=== PATIENT | female | born 1940 | race Caucasian/White ===

== ENCOUNTER 2019-02-01 21:06 | Inpatient (IN) ==
[2019-02-01] MEDS ORDERED: Naloxone 0.4 MG/ML INJ IVP PRN (23:42)
[2019-02-02] MEDS: Ipratropium/Albuterol Neb 3 ML IH SCH ×5 (00:20→22:00)
[2019-02-02] MEDS: *HR* Heparin 5,000 UNIT/ML VIAL SQ SCH ×2 (00:35→08:16)
[2019-02-02] MEDS: hydrALAZINE 25 MG TABLET PO SCH ×3 (01:14→12:05)
[2019-02-02] MEDS ORDERED: Melatonin 3 MG TABLET PO PRN (01:30)
[2019-02-02] MEDS ORDERED: Furosemide 20 MG/2 ML VIAL IVP ONE (01:49)
--- NOTE | 2019-02-02 02:02 | Internal Med History&Physical ---
Date of Encounter: 02/02/19 Time of Encounter: 01:51 Internal Medicine - H&P: HPI Chief complaint: Shortness of breath/Chest Pain/Presyncope History of present illness: Ms. Ann is a 78 year old female with a past medical history of remote CVA, hypertension, hyperlipidemia, COPD on 2 L home oxygen who initially presented to [facility] due to shortness of breath, chest pain and near syncope. Patient was walking into her living room shortly after coming from the bathroom when she felt like she was going to pass out. Patient sat down immediately. Denies loss of consciousness but did report palpitations and a sensation that her heart was racing. She began to notice retrosternal chest pressure that was nonradiating and felt more lightheaded and weak at the time. She subsequently called EMS. Per EMS, patient was found to be in A. fib with RVR with a heart rate in the 130s. Patient has no prior history of atrial fibrillation. However upon arrival to [place] patient was in sinus rhythm. EKG and troponin were unremarkable. Electrolytes within normal limits. Patient follows with Dr. Schwab with cardiology at [place]. Chest x-ray showed bibasilar alveolar opacities and small bilateral pleural effusions. BNP 190. Labs are otherwise unremarkable. Patient received Solu-Medrol and Levaquin. Patient currently asymptomatic. She does endorse a little bit of shortness of breath and has noted that lying flat seems to make it worse. Patient also endorses wheezing earlier today. Currently denies any chest pain. Denies any fever, chills, productive cough, nausea, vomiting or diarrhea. Appears to be back in sinus rhythm. We will admit for COPD exacerbation and evaluation of near syncope. Past Med Surg Social Fam HX - Past Medical History Medical history: COPD, CVA, hyperlipidemia, renal disease, thyroid disease Psychiatric history: no psych history - Social History Smoking Status: Former smoker Smokeless Tobacco Status: No Alcohol use: none Drug use: none Internal Medicine - H&P: Meds Atorvastatin [Lipitor] 40 mg PO DAILY 02/02/19 [History] Clopidogrel Bisulfate [Plavix] 75 mg PO DAILY 02/02/19 [History] Doxepin HCl [Silenor] 6 mg PO DAILY 02/02/19 [History] Folic Acid 1 mg PO DAILY 02/02/19 [History] Gabapentin [Neurontin] 600 mg PO TID 02/02/19 [History] Levothyroxine [Synthroid] 150 mcg PO DAILY 02/02/19 [History] Metoprolol Tartrate 50 mg PO BID 02/02/19 [History] Omeprazole 40 mg 02/02/19 [History] Potassium Chloride [K-Tab ER] 20 meq PO DAILY 02/02/19 [History] Ranitidine HCl [Heartburn Relief] 150 mg PO BID 02/02/19 [History] Sertraline [Zoloft] 50 mg PO DAILY 02/02/19 [History] Vitamin B-6 50 mg PO DAILY 02/02/19 [History] hydrALAZINE [HydrALAZINE] 50 mg PO QID 02/02/19 [History] Allergy/AdvReac Type Severity Reaction Status Date / Time cefdinir [From Omnicef] Allergy Anxiety Verified 02/01/19 23:58 All Systems PM: A 10-system review of systems was performed and is negative for pertinent f indings except as documented above in the HPI. - Constitutional Constitutional: no chills, no fever(s), no night sweats - EENT Eyes: no change in vision, no discharge, no pain, no photophobia Ears: no ear discharge, no ear pain, no tinnitus Nose, mouth and throat: no dysphagia, no nasal discharge, no neck pain, no sore throat - Cardiovascular Cardiovascular ROS IM: no chest pain, no diaphoresis, no dyspnea, no lightheadedness, no palpitations, no syncope - Respiratory Respiratory: no cough, no dyspnea, no wheezing, no excessive phlegm production - Gastrointestinal Gastrointestinal: no abdominal pain, no diarrhea, no hematemesis, no hematochezia, no melena, no nausea, no vomiting - Genitourinary Genitourinary: no change in urinary stream, no dysuria, no flank pain, no hematuria - Musculoskeletal Musculoskeletal ROS IM: no numbness, no tingling - Integumentary Integumentary IM: no rash, no unusual bruising - Neurological Neurological ROS: no confusion, no convulsions, no focal weakness, no numbness, no tingling, no tremor(s) - Hematologic/Lymphatic Hematologic/Lymphatic: no easy bruising - Constitutional Vitals: Temp Pulse Resp BP Pulse Ox 98.5 F 91 15 181/87 98 02/02/19 00:36 02/02/19 00:36 02/02/19 00:36 02/02/19 00:36 02/02/19 00:36 Exam: General: Alert and oriented 3 Skin:Normal color, no rash, no lesions. HEENT:EOM, pupils equal, round and reactive. Cardiovascular:Normal S1 & S2, no rubs, murmurs or gallops. No JVD. Pulse regular. Lungs:Normal breath sounds, no wheezes or crackles. Abdomen:Soft, non-tender, no rigidity. Extremities:No deformity, no edema or tenderness, no joint swelling or clubbing. Neurological:Normal cognition and motor skills. Pulses:Carotid and radial pulses normal +2. Rest of the physical exam is non contributory Internal Med - H&P Results - Labs CBC & Chem 7: 02/02/19 03:21 02/02/19 03:21 - Assessment and Plan (1) Atrial fibrillation with RVR Current Visit: Yes Status: Acute Assessment and plan: Patient reportedly found to be in A. fib with RVR per initial assessment by EMS. Patient has no prior history of atrial fibrillation. Found to be in sinus rhythm upon arrival to [facility]. EKG obtained there which I reviewed shows normal sinus rhythm with a heart rate of 89 in the absence of any ST or T-wave changes concerning for ischemia. Patient currently appears to be in sinus tachycardia with a heart rate in the 1 teens to 120. Etiology of patient's atrial fibrillation unclear. Given reports of clear lung sounds upon arrival to [place] and similar findings here, we will obtain a CTA of the chest to assess for PE and better evaluate abnormal findings on chest x-ray. -Telemetry -Patient has a Chads Vasc score of 7 but no prior history of A. fib and is currently in sinus rhythm. We will hold off anticoagulation for now, patient received loading dose of aspirin prior to transfer. -Echocardiogram -Consider Consult to cardiology (2) Near syncope Current Visit: Yes Status: Acute Assessment and plan: Patient reports near syncope symptoms characterized by lightheadedness associated with palpitations and chest pain. Suspect likely secondary to findings of atrial fibrillation reported per EMS. -Continue telemetry -We will trend troponin -Obtain echocardiogram in the morning (3) COPD exacerbation Current Visit: Yes Status: Acute Assessment and plan: Patient with reported history of COPD currently on 2 L nasal cannula presenting with dyspnea. Patient denies any significant smoking history. Patient did endorse wheezing at home prior to calling [facility]. However no wheezing has been noted at [place] or here. Patient did receive Solu-Medrol prior to transfer but no breathing treatments. -We will start patient on duo nebs -Continue steroids -We will start patient on azithromycin in the morning (4) Dyspnea Current Visit: Yes Status: Acute Assessment and plan: Patient with reported past medical history of COPD currently on chronic home oxygen of 2 L presenting with subjective dyspnea with reported wheezing. She endorses worsening of her shortness of breath lying flat. Was found to be in atrial fibrillation with RVR. Chest x-ray performed at [place] showed no acute disease except for bibasilar patchy alveolar densities and tiny bilateral pleural effusions which appear to be improved from previous x-ray on 01/01/2019. Findings could be due to resolving congestive heart failure or resolving pneumonia. Currently patient saturating in the mid 90s on home dose of 2 L. Lung examination was benign. Patient did have a mildly elevated BNP of 261. At this time etiology of patient's dyspnea may be secondary to A. fib versus COPD exacerbation versus underlying CHF or a combination thereof. Patient still has some mild sinus tachycardia. -Continue oxygen support -We will start treatment for possible COPD exacerbation -We will obtain echocardiogram given chest x-ray findings and reports of orthopnea and elevated BNP -Will consider CTA for further evaluation of abnormal findings on chest x-ray and rule out PE given patient's persistent sinus tachycardia and new onset A. fib. We will await CMP to assess kidney function prior to ordering CTA. Qualifiers: Dyspnea type: unspecified Qualified Code(s): R06.00 - Dyspnea, unspecified (5) Hypertension Current Visit: Yes Status: Acute Assessment and plan: Blood pressure remains elevated. Patient states she is on hydralazine 4 times a day. We will give evening dose and monitor. Qualifiers: Hypertension type: essential hypertension Qualified Code(s): I10 - Essential (primary) hypertension (6) DVT prophylaxis Current Visit: Yes Status: Acute Assessment and plan: Subcutaneous heparin - Time Spent With Patient Total time spent is greater than 50% in coordination of care (as documented) at patient's floor/unit and/or counseling patient:
[2019-02-02 03:34] LABS: Basophils % 0.3 %; Hematocrit 30.8 % (35.3-44.9); Hemoglobin 9.5 g/dL (11.5-15.4); Immature Granulocytes % 0.6 % (0-4); Lymphocytes # 0.3 K/mcL (0.6-4.6); Lymphocytes % 3.6 %; Mean Corpuscular HGB Conc 30.8 g/dL (31.6-35.5); Mean Corpuscular Hemoglobin 26.5 pg (28.0-33.3); Mean Corpuscular Volume 85.8 fL (83.0-100.0); Mean Platelet Volume 10.8 fL (9.4-12.4); Monocytes # 0.1 K/mcL (0.0-1.3); Monocytes % 0.7 %; Neutrophils # 6.9 K/mcL (1.6-8.9); Platelet Count 209 K/mcL (140-400); Red Blood Count 3.59 M/mcL (3.82-4.97); Red Cell Distribution Width 21.2 % (11.5-14.5); Segmented Neutrophils % 94.8 %; White Blood Count 7.2 K/mcL (4.3-11.1)
[2019-02-02 03:47] LABS: INR 1.2; Prothrombin Time 13.2 Seconds (9.4-12.1)
[2019-02-02 03:49] LABS: Activated Partial Thrombo Time 29.7 Seconds (26.0-36.0)
[2019-02-02 03:52] LABS: Albumin 3.7 g/dL (3.5-5.7); Albumin/Globulin Ratio 1.5 (1.1-2.2); Bilirubin,Total 0.8 mg/dL (0.3-1.0); Calcium 8.9 mg/dL (8.6-10.3); Globulin 2.4 g/dL (2.4-3.5); Magnesium 1.9 mg/dL (1.6-2.6); Potassium 3.5 mEq/L (3.5-5.1); Total Protein 6.1 g/dL (6.4-8.9)
[2019-02-02] MEDS ORDERED: MethylPREDNISolone 40 MG/ML VIAL IVP SCH (04:00)
[2019-02-02] MEDS ORDERED: Isovue-370 500 ML BOTTLE IVP ONE (04:03)
[2019-02-02] MEDS: Pyridoxine (B-6) 50 MG TABLET PO SCH (08:16)
[2019-02-02] MEDS: Folic Acid 1 MG TABLET PO SCH (08:16)
[2019-02-02] MEDS: Azithromycin 500 MG in 0.9 % Sodium Chloride 250 ML IVPB SCH (08:17)
[2019-02-02] MEDS: Gabapentin 300 MG CAPSULE PO SCH ×3 (08:17→21:13)
[2019-02-02] MEDS: MethylPREDNISolone 40 MG/ML VIAL IVP SCH ×2 (08:49→20:20)
[2019-02-02] MEDS ORDERED: Acetaminophen 325 MG TABLET PO ONE (08:55)
[2019-02-02] MEDS ORDERED: Famotidine 20 MG TABLET PO SCH (09:00)
[2019-02-02] MEDS ORDERED: Nitroglycerin 0.4 MG TAB.SUBL SL PRN (10:10)
--- NOTE | 2019-02-02 11:37 | Event Note ---
Date of Encounter: 02/02/19 Time of Encounter: 08:30 H&P reviewed. 78-year-old female with history of COPD on 2L, hypertension, CVA, was admitted overnight due to near syncopal episode. There was a question about afb with RVR on presentation by EMS but the evidence so far only has sinus tachycardia. CT showed evidence of volume overload without any pneumonia. Was noted to be wheezing on exam and is was started on treatment with macrolide, steroid, and bronchodilators. Currently in sinus tachycardia with serial troponins -ve, will obtain echocardiogram. Later on, there was a mention from the RN regarding ?PV bleed, will order US pelvis and trend H&H.
[2019-02-02] MEDS ORDERED: 0.9 % Sodium Chloride 500 ML IV ONE (12:48)
[2019-02-02] MEDS ORDERED: 0.9 % Sodium Chloride 500 ML ONE (12:51)
[2019-02-02] MEDS ORDERED: Pantoprazole 40 MG VIAL IVP SCH ×2 (13:28→21:30)
[2019-02-02] MEDS ORDERED: 0.9 % Sodium Chloride 500 ML IVC PRN (13:29)
--- NOTE | 2019-02-02 14:07 | Electrocardiograph Report ---
[place] [id number] Test Date: 2019-02-02 Pat Name: Morales Ann Department: 111 Room: 2N3 Gender: F Anvilsmith: : 1940 Requested By: Jacqui Rebollar Order Number: [id number] Reading MD: Milad Frances Measurements Intervals [place] Rate: 108 P: 91 AK: 137 QRS: 23 QRSD: 66 T: 52 QT: 360 QTc: 423 Interpretive Statements SINUS TACHYCARDIA NONSPECIFIC ST & T-WAVE ABNORMALITY Electronically Signed On 02-02-2019 14:06:20 EDT by Milad Frances
--- NOTE | 2019-02-02 14:10 | Electrocardiograph Report ---
[place] [id number] Test Date: 2019-02-02 Pat Name: Morales Ann Department: 111 Room: 2N3 Gender: F Director News: : 1940 Requested By: Obie Kunz Order Number: [id number] Reading MD: Milad Frances Measurements Intervals [place] Rate: 99 P: 80 OK: 149 QRS: 30 QRSD: 71 T: 52 QT: 389 QTc: 445 Interpretive Statements SINUS RHYTHM NONSPECIFIC ST & T-WAVE ABNORMALITY Electronically Signed On 02-02-2019 14:09:12 EDT by Milad Frances
[2019-02-02 14:13] LABS: Hematocrit 28.4 % (35.3-44.9); Hemoglobin 8.5 g/dL (11.5-15.4)
[2019-02-02] MEDS: Famotidine 20 MG TABLET PO SCH (21:13)
[2019-02-02 22:47] LABS: Hematocrit 25.2 % (35.3-44.9); Hemoglobin 7.6 g/dL (11.5-15.4)
[2019-02-03] MEDS: Ipratropium/Albuterol Neb 3 ML IH SCH ×4 (04:35→22:01)
[2019-02-03 04:56] LABS: Hematocrit 22.5 % (35.3-44.9); Hemoglobin 6.8 g/dL (11.5-15.4); Immature Granulocytes % 0.4 % (0-4); Lymphocytes # 0.5 K/mcL (0.6-4.6); Mean Corpuscular HGB Conc 30.2 g/dL (31.6-35.5); Mean Corpuscular Volume 89.3 fL (83.0-100.0); Mean Platelet Volume 10.6 fL (9.4-12.4); Monocytes # 0.7 K/mcL (0.0-1.3); Neutrophils # 12.1 K/mcL (1.6-8.9); Platelet Count 207 K/mcL (140-400); Red Blood Count 2.52 M/mcL (3.82-4.97); Red Cell Distribution Width 21.2 % (11.5-14.5); Segmented Neutrophils % 90.6 %
[2019-02-03 04:57] LABS: White Blood Count 13.4 K/mcL (4.3-11.1)
[2019-02-03] MEDS: MethylPREDNISolone 40 MG/ML VIAL IVP SCH ×2 (05:14→20:05)
[2019-02-03] MEDS: Pantoprazole 40 MG VIAL IVP SCH ×2 (05:14→20:05)
[2019-02-03 05:19] LABS: % Iron Saturation 3 % (15-50); Iron 10 mcg/dL (50-170); Transferrin 239 mg/dL (203-362)
[2019-02-03 05:23] LABS: Calcium 8.5 mg/dL (8.6-10.3); Magnesium 2.1 mg/dL (1.6-2.6)
[2019-02-03] MEDS: Gabapentin 300 MG CAPSULE PO SCH ×3 (08:48→21:09)
[2019-02-03] MEDS: Pyridoxine (B-6) 50 MG TABLET PO SCH (08:48)
[2019-02-03] MEDS: Azithromycin 500 MG in 0.9 % Sodium Chloride 250 ML IVPB SCH (08:48)
[2019-02-03] MEDS: Folic Acid 1 MG TABLET PO SCH (08:48)
--- NOTE | 2019-02-03 09:11 | Internal Med Progress Note ---
Hospitalist Progress Note - Encounter Date of Encounter: 02/03/19 Time of Encounter: 08:00 - Subjective Interval History: Overnight event noted. Patient had a drop of hemoglobin to 6.8 this morning and was started on PRBC transfusion. There was also a report of passing blood clot from her vagina yesterday afternoon. At the time of my exam, I noticed that her diaper had what appeared to be melanotic stool. Otherwise, patient reports improvement in her shortness of breath and denies worsening cough or sputum production. No fever overnight. - Exam Vitals: Temp Pulse Resp BP Pulse Ox 98 F 79 16 155/68 100 02/03/19 09:06 02/03/19 09:06 02/03/19 09:06 02/03/19 09:06 02/03/19 09:06 Exam: General: Alert and oriented, not in acute distress. Cardiovascular:Normal S1 & S2, No JVD. Pulse regular. Lungs: Minimal wheezes Abdomen:Soft, non-tender, no rigidity. Extremities:No deformity or swelling Neurological:Normal cognition and motor skills. Non-focal - Assessment and Plan (1) Anemia Current Visit: Yes Status: Acute Assessment and Plan: Patient presented with dyspnea on exertion and near syncope which was initially attributed it to mild COPD exacerbation +/- fluid overload however, her Hb in 04/2018 was 13.7. IT was 9.5 on presentation and there was a mention of passing blood clot through her vagina vs. melanotic stool Hb subsequently dropped to 6.8, for 2U pRBC transfusion workup shows iron deficiency and US pelvis demonstrating hypoechoic structure associated with the lower uterine segment posteriorly Plavix on hold Start iron supplement, continue IV PPI. GI consulted yesterday will also obtain CT Pelvis and consider gynecology consultation if GI workup is unremarkable (2) COPD exacerbation Current Visit: Yes Status: Acute Assessment and Plan: Will complete a short course of steroids. Continue scheduled bronchodilators (3) Near syncope Current Visit: Yes Status: Acute Assessment and Plan: likely due to orthostasis from acute blood loss anemia mx as above (4) Hypertension Current Visit: Yes Status: Chronic Assessment and Plan: Meds were held in view of borderline BP in the setting of anemia remains hypertensive through the night, will resume bb first (5) CKD (chronic kidney disease) stage 3, GFR 30-59 ml/min Current Visit: Yes Status: Chronic Assessment and Plan: Creatinine at her baseline, avoid nephrotoxins (6) History of CVA (cerebrovascular accident) Current Visit: Yes Status: Chronic Assessment and Plan: Plavix on hold, continue statin (7) DVT prophylaxis Current Visit: Yes Status: Acute Assessment and Plan: EPCD - Time Spent with Patient Total time spent is greater than 50% in coordination of care (as documented) at patient's floor/unit and/or counseling patient: Greater than 35 minutes Plan of Care Discussed with: patient Internal Medicine: Result - Labs CBC & Chem 7: 02/03/19 04:20 02/03/19 04:20 Labs: Short CBC 02/02/19 02/02/19 02/03/19 Range/Units 13:51 22:33 04:20 WBC 13.4 H D (4.3-11.1) K/mcL Hgb 8.5 L 7.6 L 6.8 L (11.5-15.4) g/dL Hct 28.4 L 25.2 L 22.5 L (35.3-44.9) % Plt Count 207 (140-400) K/mcL Neutrophils # 12.1 H (1.6-8.9) K/mcL BMP 02/03/19 04:20 Sodium 137 Potassium 4.0 Chloride 106 Carbon Dioxide 22 L BUN 28 H Creatinine 1.31 H Glucose 176 H Calcium 8.5 L Cardiac Enzymes 02/02/19 02/02/19 Range/Units 09:27 13:51 Troponin I < 0.03 < 0.03 (< 0.04) ng/mL - ABG Interpretation ABG results: PT/INR, D-dimer PT 13.2 Seconds (9.4-12.1) H 02/02/19 03:21 D-Dimer 506 ng/mLFEU (0-500) H 02/02/19 03:21 - Impressions Impressions Echocardiogram 02/02/19 01:49 Impressions: LVEF 60-65%. Mild concentric left ventricular hypertrophy. Severe left ventricular diastolic dysfunction. Normal right ventricular structure and function. Severely dilated left atrium. Mild aortic regurgitation. Moderate mitral regurgitation. Mild mitral stenosis. Mild-moderate tricuspid regurgitation. Severe pulmonary hypertension. Left Ventricular Wall Motion: Rest Echo Findings All wall segments showed normal motion. Findings: Study Quality * Technically adequate exam. ECG Findings * Normal sinus rhythm. Left Ventricle * LVEF 60-65%. * Normal LV chamber size and systolic function. * Mild concentric left ventricular hypertrophy. * Severe left ventricular diastolic dysfunction. Right Ventricle * Normal right ventricular structure and function. Left Atrium * Severely dilated left atrium. Right Atrium * Normal right atrial size. Interatrial Septum * Interatrial septum not well evaluated. Aortic Valve * Moderately calcified aortic valve leaflets. * No aortic stenosis. * Mild aortic regurgitation. Mitral Valve * Moderately calcified mitral valve leaflets. * Moderate mitral annular calcification * Moderate mitral regurgitation. * Mild mitral stenosis. * Mean transmitral gradient is 7 mmHg at HR 84 bpm. Tricuspid Valve * Normal tricuspid valve structure. * No tricuspid stenosis. * Mild-moderate tricuspid regurgitation. * Estimated RVSP is 63 mmHg. * Estimated RA pressure is 3 mmHg. * Severe pulmonary hypertension. Pulmonic Valve * Pulmonic valve is not well visualized. * No pulmonic stenosis. * Trace pulmonic regurgitation. Aorta * Normally sized aortic root. Pericardium * The pericardium appears normal. IVC * The IVC is not dilated. * > 50% respiratory change Chest CT 02/02/19 04:40 IMPRESSION: Bilateral pleural effusions with associated atelectasis. An element of volume overload is suspected given the presence of smooth interlobular septal thickening. Heterogeneous thyroid. Consider nonemergent thyroid ultrasound for complete characterization. D/ / 02/02/2019 08:08:13 Keo Klein / migdalia Interpreting Provider: Keo Klein Pelvis Ultrasound 02/03/19 00:00 IMPRESSION: Hypoechoic to anechoic structure associated with the lower uterine segment posteriorly measures 2.4 x 2.2 x 1.6 cm. Neoplasm is not excluded. Correlation with physical exam and additional cross-sectional imaging such as CT or MRI is advised. No dominant adnexal mass. D/ / 02/03/2019 07:37:30 Keo Klein / rosalind Interpreting Provider: Keo Klein Consult Discharge Plan - Plan Referrals: Paula Enciso, [employer] [Primary Care Provider] - (1) Anemia Qualifiers: Anemia type: iron deficiency Iron deficiency anemia type: chronic blood loss Qualified Code(s): D50.0 - Iron deficiency anemia secondary to blood loss (chronic) (4) Hypertension Qualifiers: Hypertension type: essential hypertension Qualified Code(s): I10 - Essential (primary) hypertension
[2019-02-03] MEDS ORDERED: 0.9 % Sodium Chloride 250 ML ONE (10:07)
[2019-02-03] MEDS: Sodium Ferric Gluconat/Sucrose 125 MG in 0.9 % Sodium Chloride 100 ML IVPB SCH (10:35)
--- NOTE | 2019-02-03 10:56 | Gastroenterology Consult Note ---
<Raul Cruz - Last Filed: 02/03/19 10:54> Date of Encounter: 02/03/19 Time of Encounter: 10:15 - Assessment and plan (1) Anemia Current Visit: Yes Status: Acute Assessment and plan: Hgb 13.7 on 04/20/2018. On admission Hgb 9.5 and this AM Hgb 6.8 with MCV 89.3 and iron 10. Two units PRBC ordered this AM. Continue to monitor CBC and transfuse PRBC as needed. Continue to hold Plavix. Plan for EGD and colonoscopy tomorrow. Clear liquid diet today, no red or purple. NPO at midnight. If unable tolerate NuLytely please use MiraLAX prep. If not clear by 6 AM, give 2 tap water enemas. Qualifiers: Anemia type: iron deficiency Iron deficiency anemia type: chronic blood loss Qualified Code(s): D50.0 - Iron deficiency anemia secondary to blood loss (chronic) (2) History of CVA (cerebrovascular accident) Current Visit: Yes Status: Chronic Assessment and plan: Continue to hold Plavix. - Time Spent With Patient Total time spent is greater than 50% in coordination of care (as documented) at patient's floor/unit and/or counseling patient: GI History of Present Illness - Data of Consult Patient: new to practice Consult date: 02/03/19 Requesting Physician: Obie Kunz MD - Consult Narrative Reason for consult: Anemia History of present illness: Ms. Ann is a 78 year old female with PMHx of COPD, CVA, HLD, HTN who presented with shortness of breath, chest pain, and near syncope. She denies loss of consciousness. She was found to be in Afib with RVR by EMS and returned to sinus rhythm upon arrival to [facility]. We were consulted to evaluate her anemia. Hgb 13.7 on 04/20/2018, on admission Hgb 9.5, and this AM Hgb dropped to 6.8. The RN reported the patient passing blood clots from her vagina yesterday, and the hospitalist reported seeing what appeared to be melanotic stool. The patient states she has been having dark, tarry stools for the past 3 days. She denies any hematochezia. She denies fever, chills, abdominal pain, nausea, vomiting, diarrhea, constipation, hematemesis, or hematochezia. Procedures: No record NSAIDs: None Anticoagulation: Plavix Past Med Surg Social Fam HX - Past Medical History Medical history: COPD, CVA, hyperlipidemia, renal disease, thyroid disease Psychiatric history: no psych history - Social History Smoking Status: Former smoker Smokeless Tobacco Status: No Alcohol use: none Drug use: none - Gastrointestinal Gastrointestinal: Present: as per HPI - Constitutional Constitutional: as per HPI - EENT Eyes: as per HPI Ears: Present: as per HPI Nose, mouth and throat: Present: as per HPI - Cardiovascular Cardiovascular ROS: Present: as per HPI - Respiratory Respiratory IM: Present: as per HPI - Genitourinary Genitourinary: Absent: change in color, Urinary frequency - Neurological ROS Neurological GI: Present: as per HPI - Hematologic/Lymphatic Hematologic/Lymphatic pediatric: Present: as per HPI - Musculoskeletal Musculoskeletal ROS GI: Present: as per HPI - Integumentary Integumentary GI: Present: as per HPI - Psychiatric ROS Psychiatric GI: Present: as per HPI - Endocrine Endocrine IM: Present: as per HPI - Constitutional Vitals: Temp Pulse Resp BP Pulse Ox 98.2 F 84 16 128/67 100 02/03/19 10:52 02/03/19 10:52 02/03/19 10:52 02/03/19 10:52 02/03/19 10:52 General appearance: Present: cooperative, A&O X 3, no acute distress, answers questions appropriately - Head Head exam: Present: atraumatic, normocephalic - Eye Eye exam: Present: normal appearance, sclera anicteric - ENT ENT exam: Present: mucous membranes dry - Neck Neck exam general surgery: Present: normal inspection, trachea midline - Respiratory Respiratory exam: Present: CTAB. Absent: rales, rhonchi, wheezes - Cardiovascular Cardiovascular exam: Present: RRR, +S1, +S2 - GI/Abdominal GI/Abdominal exam: Present: soft, no peritoneal signs. Absent: distended, firm, guarding, tenderness - Rectal Rectal exam: Present: deferred - Extremities Exam Extremities exam: Present: warm - Neurological Exam Neurological exam: Present: no focal deficits - Psychiatric Psychiatric exam: Present: normal affect, normal mood - Skin Skin exam: Present: dry, intact, normal color, warm Results - Labs CBC & Chem 7: 02/03/19 04:20 02/03/19 04:20 Labs: Last Result 02/03/19 02/03/19 04:20 04:20 Calcium 8.5 L Iron 10 L % Saturation 3 L Transferrin 239 Entire Visit 02/03/19 04:20 Hgb 6.8 L Hct 22.5 L - ABG ABG results: PT/INR, D-dimer PT 13.2 Seconds (9.4-12.1) H 02/02/19 03:21 D-Dimer 506 ng/mLFEU (0-500) H 02/02/19 03:21 - Impressions Impressions Echocardiogram 02/02/19 01:49 Impressions: LVEF 60-65%. Mild concentric left ventricular hypertrophy. Severe left ventricular diastolic dysfunction. Normal right ventricular structure and function. Severely dilated left atrium. Mild aortic regurgitation. Moderate mitral regurgitation. Mild mitral stenosis. Mild-moderate tricuspid regurgitation. Severe pulmonary hypertension. Left Ventricular Wall Motion: Rest Echo Findings All wall segments showed normal motion. Findings: Study Quality * Technically adequate exam. ECG Findings * Normal sinus rhythm. Left Ventricle * LVEF 60-65%. * Normal LV chamber size and systolic function. * Mild concentric left ventricular hypertrophy. * Severe left ventricular diastolic dysfunction. Right Ventricle * Normal right ventricular structure and function. Left Atrium * Severely dilated left atrium. Right Atrium * Normal right atrial size. Interatrial Septum * Interatrial septum not well evaluated. Aortic Valve * Moderately calcified aortic valve leaflets. * No aortic stenosis. * Mild aortic regurgitation. Mitral Valve * Moderately calcified mitral valve leaflets. * Moderate mitral annular calcification * Moderate mitral regurgitation. * Mild mitral stenosis. * Mean transmitral gradient is 7 mmHg at HR 84 bpm. Tricuspid Valve * Normal tricuspid valve structure. * No tricuspid stenosis. * Mild-moderate tricuspid regurgitation. * Estimated RVSP is 63 mmHg. * Estimated RA pressure is 3 mmHg. * Severe pulmonary hypertension. Pulmonic Valve * Pulmonic valve is not well visualized. * No pulmonic stenosis. * Trace pulmonic regurgitation. Aorta * Normally sized aortic root. Pericardium * The pericardium appears normal. IVC * The IVC is not dilated. * > 50% respiratory change Chest CT 02/02/19 04:40 IMPRESSION: Bilateral pleural effusions with associated atelectasis. An element of volume overload is suspected given the presence of smooth interlobular septal thickening. Heterogeneous thyroid. Consider nonemergent thyroid ultrasound for complete characterization. D/ / 02/02/2019 08:08:13 Keo Klein / migdalia Interpreting Provider: Keo Klein Pelvis Ultrasound 02/03/19 00:00 IMPRESSION: Hypoechoic to anechoic structure associated with the lower uterine segment posteriorly measures 2.4 x 2.2 x 1.6 cm. Neoplasm is not excluded. Correlation with physical exam and additional cross-sectional imaging such as CT or MRI is advised. No dominant adnexal mass. D/ / 02/03/2019 07:37:30 Keo Klein / rosalind Interpreting Provider: Keo Klein Consult Discharge Plan - Plan Referrals: Paula Enciso SENIOR COMPLIANCE ANALYST [Primary Care Provider] - <Levar Lucia - Last Filed: 02/03/19 16:43> Date of Encounter: 02/03/19 Time of Encounter: 15:00 - Time Spent With Patient Total time spent is greater than 50% in coordination of care (as documented) at patient's floor/unit and/or counseling patient: GI History of Present Illness - Data of Consult Requesting Physician: Obie Kunz MD - Consult Narrative History of present illness: Ms. Ann is a 78 year old female - Constitutional Vitals: Temp Pulse Resp BP Pulse Ox 98.7 F 76 14 146/72 98 02/03/19 15:41 02/03/19 15:41 02/03/19 16:30 02/03/19 15:41 02/03/19 16:30 Results - Labs CBC & Chem 7: 02/03/19 04:20 02/03/19 04:20 Labs: Last Result 02/03/19 02/03/19 04:20 04:20 Calcium 8.5 L Iron 10 L % Saturation 3 L Transferrin 239 Entire Visit 02/03/19 04:20 Hgb 6.8 L Hct 22.5 L - ABG ABG results: PT/INR, D-dimer PT 13.2 Seconds (9.4-12.1) H 02/02/19 03:21 D-Dimer 506 ng/mLFEU (0-500) H 02/02/19 03:21 - Impressions Impressions Echocardiogram 02/02/19 01:49 Impressions: LVEF 60-65%. Mild concentric left ventricular hypertrophy. Severe left ventricular diastolic dysfunction. Normal right ventricular structure and function. Severely dilated left atrium. Mild aortic regurgitation. Moderate mitral regurgitation. Mild mitral stenosis. Mild-moderate tricuspid regurgitation. Severe pulmonary hypertension. Left Ventricular Wall Motion: Rest Echo Findings All wall segments showed normal motion. Findings: Study Quality * Technically adequate exam. ECG Findings * Normal sinus rhythm. Left Ventricle * LVEF 60-65%. * Normal LV chamber size and systolic function. * Mild concentric left ventricular hypertrophy. * Severe left ventricular diastolic dysfunction. Right Ventricle * Normal right ventricular structure and function. Left Atrium * Severely dilated left atrium. Right Atrium * Normal right atrial size. Interatrial Septum * Interatrial septum not well evaluated. Aortic Valve * Moderately calcified aortic valve leaflets. * No aortic stenosis. * Mild aortic regurgitation. Mitral Valve * Moderately calcified mitral valve leaflets. * Moderate mitral annular calcification * Moderate mitral regurgitation. * Mild mitral stenosis. * Mean transmitral gradient is 7 mmHg at HR 84 bpm. Tricuspid Valve * Normal tricuspid valve structure. * No tricuspid stenosis. * Mild-moderate tricuspid regurgitation. * Estimated RVSP is 63 mmHg. * Estimated RA pressure is 3 mmHg. * Severe pulmonary hypertension. Pulmonic Valve * Pulmonic valve is not well visualized. * No pulmonic stenosis. * Trace pulmonic regurgitation. Aorta * Normally sized aortic root. Pericardium * The pericardium appears normal. IVC * The IVC is not dilated. * > 50% respiratory change Chest CT 02/02/19 04:40 IMPRESSION: Bilateral pleural effusions with associated atelectasis. An element of volume overload is suspected given the presence of smooth interlobular septal thickening. Heterogeneous thyroid. Consider nonemergent thyroid ultrasound for complete characterization. D/ / 02/02/2019 08:08:13 Keo Klein / migdalia Interpreting Provider: Keo Klein Pelvis Ultrasound 02/03/19 00:00 IMPRESSION: Hypoechoic to anechoic structure associated with the lower uterine segment posteriorly measures 2.4 x 2.2 x 1.6 cm. Neoplasm is not excluded. Correlation with physical exam and additional cross-sectional imaging such as CT or MRI is advised. No dominant adnexal mass. D/ / 02/03/2019 07:37:30 Keo Klein / rosalind Interpreting Provider: Keo Klein Pelvis CT 02/03/19 07:20 IMPRESSION: Area seen on ultrasound is not well evaluated by CT. Bladder wall thickening with mild surrounding inflammatory changes and a focus of air. Infection should be excluded. D/ / 02/03/2019 16:21:46 Rashawn Calderon MD / stephani Interpreting Provider: Rashawn Calderon MD - Attending Attestation I have personally performed a face to face evaluation on this patient. I have reviewed and agree with the care plan. History and Exam by me shows: Patient seen denies any abdominal pain no overt GI bleeding on examination: Ab domen is soft. Assessment: PMHx of COPD, CVA, HLD, HTN now with the symptomatic anemia no overt GI bleeding. Recommendation: EGD colonoscopy in the morning
[2019-02-03] MEDS: Metoprolol XL (24 HR) Succ 50 MG TAB.ER.24H PO SCH (12:45)
[2019-02-03] MEDS ORDERED: SODIUM CHLORIDE/NAHCO3/KCL/PEG 4,000 ML SOLN.RECON PO ONE (17:00)
[2019-02-03 17:11] LABS: Hematocrit 32.8 % (35.3-44.9)
[2019-02-03 17:16] LABS: Hemoglobin 10.2 g/dL (11.5-15.4)
[2019-02-03] MEDS: Famotidine 20 MG TABLET PO SCH (21:09)
[2019-02-04 01:55] LABS: Basophils % 0.1 %; Hematocrit 32.9 % (35.3-44.9); Hemoglobin 10.1 g/dL (11.5-15.4); Immature Granulocytes % 1.3 % (0-4); Lymphocytes # 0.4 K/mcL (0.6-4.6); Lymphocytes % 2.8 %; Mean Corpuscular HGB Conc 30.7 g/dL (31.6-35.5); Mean Corpuscular Hemoglobin 27.5 pg (28.0-33.3); Mean Corpuscular Volume 89.6 fL (83.0-100.0); Mean Platelet Volume 10.8 fL (9.4-12.4); Monocytes # 0.4 K/mcL (0.0-1.3); Monocytes % 3.1 %; Neutrophils # 11.6 K/mcL (1.6-8.9); Platelet Count 188 K/mcL (140-400); Red Blood Count 3.67 M/mcL (3.82-4.97); Red Cell Distribution Width 19.9 % (11.5-14.5); Segmented Neutrophils % 92.7 %; White Blood Count 12.6 K/mcL (4.3-11.1)
[2019-02-04 02:08] LABS: Calcium 8.1 mg/dL (8.6-10.3); Potassium 4.6 mEq/L (3.5-5.1)
[2019-02-04] MEDS: Ipratropium/Albuterol Neb 3 ML IH SCH ×2 (04:04→11:15)
[2019-02-04] MEDS: MethylPREDNISolone 40 MG/ML VIAL IVP SCH ×2 (05:18→16:21)
[2019-02-04] MEDS: Pantoprazole 40 MG VIAL IVP SCH ×2 (05:19→16:21)
[2019-02-04] MEDS: Metoprolol XL (24 HR) Succ 50 MG TAB.ER.24H PO SCH (08:05)
[2019-02-04] MEDS: Folic Acid 1 MG TABLET PO SCH (08:05)
[2019-02-04] MEDS: Pyridoxine (B-6) 50 MG TABLET PO SCH (08:05)
[2019-02-04] MEDS: Gabapentin 300 MG CAPSULE PO SCH ×3 (08:05→20:34)
[2019-02-04] MEDS: amLODIPine 5 MG TABLET PO SCH (09:36)
--- NOTE | 2019-02-04 10:18 | Internal Med Progress Note ---
Hospitalist Progress Note - Encounter Date of Encounter: 02/04/19 Time of Encounter: 09:00 - Subjective Interval History: No episodes of melena, hematochezia, or hemoptysis. Feels like her breathing had returned to her baseline. No fever overnight. - Exam Vitals: Temp Pulse Resp BP Pulse Ox 97.8 F 69 14 164/71 100 02/04/19 07:20 02/04/19 07:20 02/04/19 07:20 02/04/19 07:20 02/04/19 07:20 Exam: General: Alert and oriented, not in acute distress. Cardiovascular:Normal S1 & S2, No JVD. Pulse regular. Lungs: Clear to auscultation Abdomen:Soft, non-tender, no rigidity. Extremities:No deformity or swelling Neurological:Normal cognition and motor skills. Non-focal - Assessment and Plan (1) Anemia Current Visit: Yes Status: Acute Assessment and Plan: Patient presented with dyspnea on exertion and near syncope which was initially attributed it to mild COPD exacerbation +/- fluid overload however, her Hb in 04/2018 was 13.7. IT was 9.5 on presentation and there was a mention of passing blood clot through her vagina vs. melanotic stool Hb subsequently dropped to 6.8, received 2U pRBC transfusion and currently stable at 10 workup shows iron deficiency Plavix on hold, iron supplement started in addition to IV PPI. GI input appreciated, for EGD/colonoscopy today (2) Bladder wall thickening Current Visit: Yes Status: Acute Assessment and Plan: Initially there was a concern for whether her bleeding was from her vagina hence US pelvis was done subsequently, CT pelvis was done on 02/03 as there was a concern for hypoechoic structure in the lower uterus CT did not replicate the finding in her uterus but instead it showed bladder wall thickening with mild surrounding inflammatory changes and a focus of air will correlate with urinalysis (3) COPD exacerbation Current Visit: Yes Status: Acute Assessment and Plan: Will complete a short course of steroids. Continue scheduled bronchodilators (4) Near syncope Current Visit: Yes Status: Acute Assessment and Plan: likely due to orthostasis from acute blood loss anemia mx as above (5) Hypertension Current Visit: Yes Status: Chronic Assessment and Plan: Meds were held in view of borderline BP in the setting of anemia bb resumed on 02/03, will also start norvasc in place of hydralazine (6) CKD (chronic kidney disease) stage 3, GFR 30-59 ml/min Current Visit: Yes Status: Chronic Assessment and Plan: Creatinine at her baseline, avoid nephrotoxins (7) History of CVA (cerebrovascular accident) Current Visit: Yes Status: Chronic Assessment and Plan: Plavix on hold, continue statin (8) DVT prophylaxis Current Visit: Yes Status: Acute Assessment and Plan: EPCD - Time Spent with Patient Total time spent is greater than 50% in coordination of care (as documented) at patient's floor/unit and/or counseling patient: 25 - 35 minutes Plan of Care Discussed with: patient Internal Medicine: Result - Labs CBC & Chem 7: 02/04/19 01:16 02/04/19 01:16 Labs: Short CBC 02/03/19 02/04/19 Range/Units 16:55 01:16 WBC 12.6 H (4.3-11.1) K/mcL Hgb 10.2 L D 10.1 L (11.5-15.4) g/dL Hct 32.8 L 32.9 L (35.3-44.9) % Plt Count 188 (140-400) K/mcL Neutrophils # 11.6 H (1.6-8.9) K/mcL BMP 02/04/19 01:16 Sodium 140 Potassium 4.6 Chloride 109 H Carbon Dioxide 25 BUN 26 H Creatinine 1.26 H Glucose 158 H Calcium 8.1 L - ABG Interpretation ABG results: PT/INR, D-dimer PT 13.2 Seconds (9.4-12.1) H 02/02/19 03:21 D-Dimer 506 ng/mLFEU (0-500) H 02/02/19 03:21 - Impressions Impressions Pelvis Ultrasound 02/03/19 00:00 IMPRESSION: Hypoechoic to anechoic structure associated with the lower uterine segment posteriorly measures 2.4 x 2.2 x 1.6 cm. Neoplasm is not excluded. Correlation with physical exam and additional cross-sectional imaging such as CT or MRI is advised. No dominant adnexal mass. D/ / 02/03/2019 07:37:30 Keo Klein / rosalind Interpreting Provider: Keo Klein Pelvis CT 02/03/19 07:20 IMPRESSION: Area seen on ultrasound is not well evaluated by CT. Bladder wall thickening with mild surrounding inflammatory changes and a focus of air. Infection should be excluded. D/ / 02/03/2019 16:21:46 Rashawn Calderon MD / [email or web address] Interpreting Provider: Rashawn Calderon MD Consult Discharge Plan - Plan Referrals: Paula Enciso, [employer] [Primary Care Provider] - (1) Anemia Qualifiers: Anemia type: iron deficiency Iron deficiency anemia type: chronic blood loss Qualified Code(s): D50.0 - Iron deficiency anemia secondary to blood loss (chronic) (5) Hypertension Qualifiers: Hypertension type: essential hypertension Qualified Code(s): I10 - Essential (primary) hypertension
[2019-02-04] MEDS ORDERED: Ipratropium/Albuterol Neb 3 ML IH PRN (11:36)
[2019-02-04] MEDS ORDERED: Propofol 500 MG/50 ML INFUS..BTL ONE (12:03)
[2019-02-04 12:05] LABS: Bilirubin,Urine Negative (Negative); Blood,Urine Small (Negative); Clarity,Urine Clear (Clear); Color,Urine Yellow (Yellow); Glucose,Urine (UA) Normal (Normal); Ketones,Urine Negative (Negative); Leukocyte Esterase,Urine Small (Negative); Nitrite,Urine Negative (Negative); Protein,Urine Negative (Neg-Trace); Specific Gravity,Urine 1.017 (1.010-1.025); Urobilinogen,Urine Normal (Normal)
[2019-02-04 12:08] LABS: Hyaline Casts,Urine None Seen per lpf (None-Few)
[2019-02-04 12:29] LABS: Bacteria,Urine Few per hpf (None-Few); Renal Epithelial Cells,Urine Few per hpf (None-Few); Squamous Epithelial Cell,Urine Moderate per lpf (None-Few)
--- NOTE | 2019-02-04 12:58 | Anesthesia Evaluation PreOp ---
Date of Encounter: 02/04/19 Time of Encounter: 13:00 - Past History Planned Operation: Double Endo Cardiac History: HTN, Hyperlipidemia Pulmonary History: COPD, Other (Anemia) [employer]GER [employer] History: CVA Other Medical History: Other Anesthesia History: No Prior Anesthetic Complications Alcohol Use: none Drug use: none Medications and Allergies Albuterol Sulfate [Ventolin Hfa] 2 puff PO Q4-6H PRN 02/02/19 [History] Atorvastatin [Lipitor] 40 mg PO DAILY 02/02/19 [History] Clopidogrel Bisulfate [Plavix] 75 mg PO DAILY 02/02/19 [History] Fluticasone Propionate Nasal [Flonase] 50 mcg NS BID 02/02/19 [History] Folic Acid 1 mg PO DAILY 02/02/19 [History] Furosemide [Lasix] 40 mg PO DAILY 02/02/19 [History] Gabapentin [Neurontin] 600 mg PO TID 02/02/19 [History] Hydralazine HCl 50 mg PO DAILY 02/02/19 [History] Levothyroxine Sodium [Synthroid] 200 mcg PO QAM 02/02/19 [History] Metoprolol Tartrate 50 mg PO DAILY 02/02/19 [History] Omeprazole [PriLOSEC] 40 mg PO DAILY 02/02/19 [History] Potassium Chloride [K-Tab ER] 20 meq PO DAILY 02/02/19 [History] Pyridoxine (B-6) [Vitamin B-6] 50 mg PO DAILY 02/02/19 [History] Ranitidine HCl [Heartburn Relief] 150 mg PO BID 02/02/19 [History] Sertraline [Zoloft] 50 mg PO DAILY 02/02/19 [History] traZODone [TraZODone] 50 mg PO HS 02/02/19 [History] Allergy/AdvReac Type Severity Reaction Status Date / Time cefdinir [From Omnicef] Allergy Anxiety Verified 02/02/19 18:18 - Meds/Allergy Pre-op Review Medications Reviewed: Yes Allergies Reviewed: Yes Beta Blockers on Current Med List: No Anesthesia Results - Labs 02/04/19 01:16 02/04/19 01:16 - Imaging EKG: report reviewed (SR) Additional studies: EF 60%, pulm htn Anesthesia Exam O2 Sat O2 Sat by Pulse Oximetry 100 O2 Sat by Pulse Oximetry 100 O2 Sat by Pulse Oximetry 100 O2 Sat by Pulse Oximetry 98 O2 Sat by Pulse Oximetry 99 O2 Sat by Pulse Oximetry 98 O2 Sat by Pulse Oximetry 100 O2 Sat by Pulse Oximetry 98 O2 Sat by Pulse Oximetry 99 O2 Sat by Pulse Oximetry 100 Vital Signs Temp Pulse Resp BP Pulse Ox 98.5 F 91 15 181/87 98 02/02/19 00:36 02/02/19 00:36 02/02/19 00:36 02/02/19 00:36 02/02/19 00:36 Height: 5'2 Weight: 142 lbs NPO (# of Hours): MN Pain Scale: 0 - HEENT Pupil (Motor): Pupils equal, EOMI Mallampati: III Teeth: Edentulous Oral Opening: Less than or equal to 3 - [employer] LOC: Oriented [employer] Motor: Normal RUE, Normal LUE, Normal RLE, Normal LLE, Normal Face [employer] Sensory: Normal: RUE, LUE, RLE, LLE, Face - Cardiac Rhythm: Regular Murmur: None JVD: No Carotid Bruit: No - Pulmonary Breath Sounds: bilateral Clear Respiratory Effort: Symmetrical Anesthesia Assess/Plan ASA Score: 3 (CAD HTN) Level of consciousness: Cooperative, Oriented Anesthetic Plan: MAC Autologous Blood: No Monitoring Plan: Standard Monitors Recovery Plan: Other (Discussed MAC, agrees to proceed)
[2019-02-04] MEDS ORDERED: Simethicone 40 MG/0.6 ML MLS IR STA (13:13)
--- NOTE | 2019-02-04 14:06 | Anesthesia Evaluation Post Op ---
Date of Encounter: 02/04/19 Time of Encounter: 14:00 - Vital Signs Vital Signs: Vital Signs/O2 Sat/Glucose, Most Current Temp Pulse Resp BP Pulse Ox 02/04/19 12:43 98.4 F 75 18 167/72 100 02/04/19 11:16 18 100 - Lungs Lungs: Clear Ascult./Percussion - Airway Airway: Non-obstructed - Cardiovascular Regular Rate - Mental Status Mental Status: Alert & Oriented, Answers Appropriately - Pain Pain Scale: 0 - Nausea Vomiting Nausea Vomiting: Not Present - Hydration Hydration: NPO - Discharge PostOp Status: Transfer Patient to floor
--- NOTE | 2019-02-04 15:51 | AcuteCare Surgery Consult Note ---
Date of Encounter: 02/04/19 Time of Encounter: 14:40 Assessment and Plan (1) Colonic mass Current Visit: Yes Status: Acute Highly suspicious for cancer. Discussed colonoscopy findings with patient. Also, discussed concerns about symptomatic anemia causing near syncope and afib with RVR. We discussed the option to treat this mass acutely to avoid any further problems with symptomatic anemia. Pt understands diagnosis. She understands options to undergo surgery acutely vs. surgery electively vs. surgery no surgery at all. She understands the procedure, risks and benefits. Possible complications of right hemicolectomy for right colon mass, probable cancer, include bleeding, infection, anastomotic leakage, ureteral injury, duodenal or bladder injury, stroke, NV, DVT/PE or . Pt is agreeable to surgery during this hospitalization. Sip of clears today. NPO after MN except meds. Roopa's prep ordered. Consent is obtained and surgery is scheduled for tomorrow. (2) Atrial fibrillation with RVR Current Visit: Yes Status: Acute Resolved. Pt is in NSR. No anticoagulation ordered d/t suspected GI bleed. No anticoagulation in home meds. (3) COPD exacerbation Current Visit: Yes Status: Acute Stable. Pt is on steroids IV for acute exacerbation. (4) Hypertension Current Visit: Yes Status: Chronic Stable. Continue home meds perioperatively. Qualifiers: Hypertension type: essential hypertension Qualified Code(s): I10 - Essential (primary) hypertension (5) CKD (chronic kidney disease) stage 3, GFR 30-59 ml/min Current Visit: Yes Status: Chronic History of Present Illness Consult date: 02/04/19 Reason for consult: other (colon mass) Requesting physician: Levar Lucia History of present illness: This 78 y/o female was admitted to [facility], [place] with a near syncopal episode and afib with RVR found to be secondary to acute on chronic anemia. Pt was transfused 2 U PRBC and responded appropriately. On admission chest and pelvis CT are obtained/ Chest CT revealed only findings in aortic intima suggestive of anemia and pelvis CT revealed only findings c/w possible UTI. Pt is being treated for UTI with IV abx. She reports known hx of afib in the past but, doesn't take anticoagulation meds. She denies any abdominal pain, changes in BM, BRBPR or dark stool, changes in appetite or wt loss. Past Med Surg Social Fam HX - Past Medical History Medical history: COPD, CVA, hyperlipidemia, renal disease, thyroid disease Psychiatric history: no psych history - Social History Smoking Status: Former smoker Smokeless Tobacco Status: No Alcohol use: none Drug use: none Medications and Allergies Albuterol Sulfate [Ventolin Hfa] 2 puff PO Q4-6H PRN 02/02/19 [History] Atorvastatin [Lipitor] 40 mg PO DAILY 02/02/19 [History] Clopidogrel Bisulfate [Plavix] 75 mg PO DAILY 02/02/19 [History] Fluticasone Propionate Nasal [Flonase] 50 mcg NS BID 02/02/19 [History] Folic Acid 1 mg PO DAILY 02/02/19 [History] Furosemide [Lasix] 40 mg PO DAILY 02/02/19 [History] Gabapentin [Neurontin] 600 mg PO TID 02/02/19 [History] Hydralazine HCl 50 mg PO DAILY 02/02/19 [History] Levothyroxine Sodium [Synthroid] 200 mcg PO QAM 02/02/19 [History] Metoprolol Tartrate 50 mg PO DAILY 02/02/19 [History] Omeprazole [PriLOSEC] 40 mg PO DAILY 02/02/19 [History] Potassium Chloride [K-Tab ER] 20 meq PO DAILY 02/02/19 [History] Pyridoxine (B-6) [Vitamin B-6] 50 mg PO DAILY 02/02/19 [History] Ranitidine HCl [Heartburn Relief] 150 mg PO BID 02/02/19 [History] Sertraline [Zoloft] 50 mg PO DAILY 02/02/19 [History] traZODone [TraZODone] 50 mg PO HS 02/02/19 [History] Allergy/AdvReac Type Severity Reaction Status Date / Time cefdinir [From Omnicef] Allergy Anxiety Verified 02/02/19 18:18 Review of Systems All systems PM: The remainder of the systems were reviewed and are negative - Constitutional fatigue, weakness, no anorexia, no chills, no excessive sweating, no night sweats - EENT Nose, mouth and throat: no dry mouth, no dysphagia, no nasal congestion, no nasal discharge, no sinus pain, no sinus pressure, no sore throat - Breasts no skin changes - Cardiovascular no chest pain, no chest pain at rest, no diaphoresis, no dyspnea - Respiratory no cough, no dyspnea, no wheezing - Gastrointestinal no abdominal pain, no bloating, no constipation, no diarrhea, no nausea, no vomiting - Genitourinary Genitourinary: no difficulty voiding, no dysuria, no urinary frequency - Musculoskeletal no back pain, no joint swelling, no limited range of motion, no neck pain - Integumentary no dry skin - Neurological dizziness (resolved), weakness, no confusion, no focal weakness - Psychiatric no anxiety, no depression - Endocrine fatigue - Hematologic/Lymphatic no easy bleeding, no easy bruising General Surgery Exam Initial Vital Signs Temp Pulse Resp BP Pulse Ox 98.5 F 91 15 181/87 98 02/02/19 00:36 02/02/19 00:36 02/02/19 00:36 02/02/19 00:36 02/02/19 00:36 - General physical appearance no distress, no pain. negative: jaundice - Eyes PERRL, normal ocular movement. negative: icteric - ENT normal mucosa, no congestion - Neck no masses, trachea midline, no lymphadectomy, no venous distension - Respiratory normal respiratory effort, clear to auscultation - Cardiovascular Cardiovascular exam: Present: RRR. Absent: JVD - Abdomen Abdomen general surgery: Present: bowel sounds present, soft, non tender. Absent: distended - Genitourinary Present: normal external genitalia - Integumentary Integumentary general surgery: Present: warm and dry - Neurologic Present: CN 2-12 grossly intact, normal coordination - Musculoskeletal Present: normal gait, normal posture - Psychiatric Psychiatric general surgery: Present: A&Ox3, appropriate Exam Initial Vital Signs Temp Pulse Resp BP Pulse Ox 98.5 F 91 15 181/87 98 02/02/19 00:36 02/02/19 00:36 02/02/19 00:36 02/02/19 00:36 02/02/19 00:36 Results - Labs 02/04/19 01:16 02/04/19 01:16 Abnormal lab results WBC 12.6 K/mcL (4.3-11.1) H 02/04/19 01:16 RBC 3.67 M/mcL (3.82-4.97) L 02/04/19 01:16 Hgb 10.1 g/dL (11.5-15.4) L 02/04/19 01:16 Hct 32.9 % (35.3-44.9) L 02/04/19 01:16 MCH 27.5 pg (28.0-33.3) L 02/04/19 01:16 MCHC 30.7 g/dL (31.6-35.5) L 02/04/19 01:16 RDW 19.9 % (11.5-14.5) H 02/04/19 01:16 Neutrophils # 11.6 K/mcL (1.6-8.9) H 02/04/19 01:16 Lymphocytes # 0.4 K/mcL (0.6-4.6) L 02/04/19 01:16 PT 13.2 Seconds (9.4-12.1) H 02/02/19 03:21 D-Dimer 506 ng/mLFEU (0-500) H 02/02/19 03:21 Chloride 109 mEq/L (98-107) H 02/04/19 01:16 Carbon Dioxide 22 mEq/L (23-29) L 02/03/19 04:20 BUN 26 mg/dL (8-23) H 02/04/19 01:16 Creatinine 1.26 mg/dL (0.60-1.20) H 02/04/19 01:16 Est GFR ( Amer) 50 (> 60) L 02/04/19 01:16 Est GFR (Non-Af Amer) 41 (> 60) L 02/04/19 01:16 Glucose 158 mg/dL (70-105) H 02/04/19 01:16 Calcium 8.1 mg/dL (8.6-10.3) L 02/04/19 01:16 Iron 10 mcg/dL (50-170) L 02/03/19 04:20 % Saturation 3 % (15-50) L 02/03/19 04:20 B-Natriuretic Peptide 261 pg/mL (Less than 100) H 02/02/19 03:21 Serum Total Protein 6.1 g/dL (6.4-8.9) L 02/02/19 03:21 Urine Blood Small (Negative) H 02/04/19 11:56 Ur Leukocyte Esterase Small (Negative) H 02/04/19 11:56 Urine Microscopic WBC 3-5 per hpf (0-3) H 02/04/19 11:56 Ur Squamous Epith Cells Moderate per lpf (None-Few) H 02/04/19 11:56 Ur Culture Indicated? YES (NO) A 02/04/19 11:56 Crossmatch See Detail 02/03/19 04:20 Diabetes panel 02/04/19 Range/Units 01:16 Sodium 140 (136-145) mEq/L Potassium 4.6 (3.5-5.1) mEq/L Chloride 109 H (98-107) mEq/L Carbon Dioxide 25 (23-29) mEq/L BUN 26 H (8-23) mg/dL Creatinine 1.26 H (0.60-1.20) mg/dL Glucose 158 H (70-105) mg/dL Calcium 8.1 L (8.6-10.3) mg/dL Calcium panel 02/04/19 Range/Units 01:16 Calcium 8.1 L (8.6-10.3) mg/dL Pituitary panel 02/04/19 Range/Units 01:16 Sodium 140 (136-145) mEq/L Potassium 4.6 (3.5-5.1) mEq/L Chloride 109 H (98-107) mEq/L Carbon Dioxide 25 (23-29) mEq/L BUN 26 H (8-23) mg/dL Creatinine 1.26 H (0.60-1.20) mg/dL Glucose 158 H (70-105) mg/dL Calcium 8.1 L (8.6-10.3) mg/dL Adrenal panel 02/04/19 Range/Units 01:16 Sodium 140 (136-145) mEq/L Potassium 4.6 (3.5-5.1) mEq/L Chloride 109 H (98-107) mEq/L Carbon Dioxide 25 (23-29) mEq/L BUN 26 H (8-23) mg/dL Creatinine 1.26 H (0.60-1.20) mg/dL Glucose 158 H (70-105) mg/dL Calcium 8.1 L (8.6-10.3) mg/dL All other labs normal. - Imaging CT scan - abdomen: image reviewed (No abnormal lung nodules. +multinodular thyroid) CT scan - pelvis: image reviewed (+Cystitis. No abnormal LN) Additional studies: Colonoscopy reveals right colon mass c/w malignancy Consult Discharge Plan - Plan Referrals: Paula Enciso, CLEMENTINA [Primary Care Provider] -
--- NOTE | 2019-02-04 17:21 | Anesthesia Evaluation PreOp ---
Date of Encounter: 02/04/19 Time of Encounter: 19:20 - Past History Planned Operation: Right Colon Resection Cardiac History: CHF, HTN, Hyperlipidemia, Other (mild mitral stenosis -- Mitral Valve * Moderately calcified mitral valve leaflets. * Moderate mitral annular calcification * Moderate mitral regurgitation. * Mild mitral stenosis. * Mean transmitral gradient is 7 mmHg at HR 84 bpm. and severe pulmonary HTN by echo 02/02/2019) Pulmonary History: Former smoker (quit 35 years ago), COPD (on home O2 2L continuously) [employer] History: CVA (resdiual right sided weakness) Other Medical History: Renal (stage 3 CKD), Thyroid, GERD Anesthesia History: No Prior Anesthetic Complications, Past Anesthesia Alcohol Use: none Drug use: none Medications and Allergies Albuterol Sulfate [Ventolin Hfa] 2 puff PO Q4-6H PRN 02/02/19 [History] Atorvastatin [Lipitor] 40 mg PO DAILY 02/02/19 [History] Clopidogrel Bisulfate [Plavix] 75 mg PO DAILY 02/02/19 [History] Fluticasone Propionate Nasal [Flonase] 50 mcg NS BID 02/02/19 [History] Folic Acid 1 mg PO DAILY 02/02/19 [History] Furosemide [Lasix] 40 mg PO DAILY 02/02/19 [History] Gabapentin [Neurontin] 600 mg PO TID 02/02/19 [History] Hydralazine HCl 50 mg PO DAILY 02/02/19 [History] Levothyroxine Sodium [Synthroid] 200 mcg PO QAM 02/02/19 [History] Metoprolol Tartrate 50 mg PO DAILY 02/02/19 [History] Omeprazole [PriLOSEC] 40 mg PO DAILY 02/02/19 [History] Potassium Chloride [K-Tab ER] 20 meq PO DAILY 02/02/19 [History] Pyridoxine (B-6) [Vitamin B-6] 50 mg PO DAILY 02/02/19 [History] Ranitidine HCl [Heartburn Relief] 150 mg PO BID 02/02/19 [History] Sertraline [Zoloft] 50 mg PO DAILY 02/02/19 [History] traZODone [TraZODone] 50 mg PO HS 02/02/19 [History] Allergy/AdvReac Type Severity Reaction Status Date / Time cefdinir [From Omnicef] Allergy Anxiety Verified 02/02/19 18:18 - Meds/Allergy Pre-op Review Medications Reviewed: Yes Allergies Reviewed: Yes Beta Blockers on Current Med List: Yes If Beta Blockers taken, Date/Time (Last Dose taken): 02/04/2019 at 0805 Anesthesia Results - Labs 02/04/19 01:16 02/04/19 01:16 - Imaging EKG: report reviewed (02/02/[address] & T-WAVE ABNORMALITY) Additional studies: 02/02/2019 Echo Impressions: LVEF 60-65%. Mild concentric left ventricular hypertrophy. Severe left ventricular diastolic dysfunction. Normal right ventricular structure and function. Severely dilated left atrium. Mild aortic regurgitation. Moderate mitral regurgitation. Mild mitral stenosis. Mild-moderate tricuspid regurgitation. Severe pulmonary hypertension. 02/02/[address] IMPRESSION: Bilateral pleural effusions with associated atelectasis. An element of volume overload is suspected given the presence of smooth interlobular septal thickening. Heterogeneous thyroid. Consider nonemergent thyroid ultrasound for complete characterization. Anesthesia Exam Vital Signs/O2 Sat, Most Current Temp Pulse Resp BP Pulse Ox 97.6 F 84 16 157/99 100 02/04/19 16:30 02/04/19 16:30 02/04/19 16:30 02/04/19 16:30 02/04/19 16:30 Height: 5'2'' Weight: 142 lbs NPO (# of Hours): 8 Pain Scale: 0 Pain Scale Used: Numeric (1 - 10) - HEENT Pupil (Motor): EOMI Mallampati: III Teeth: Edentulous Denture Type: Upper: Complete, Lower: Complete Oral Opening: Greater than 3 - [employer] LOC: Oriented [employer] Motor: Normal LUE, Normal LLE, Normal Face, Deficit RUE, Deficit RLE [employer] Sensory: Normal: RUE, LUE, RLE, LLE, Face - Cardiac Rhythm: Regular Murmur: None - Pulmonary Breath Sounds: bilateral Clear Respiratory Effort: Symmetrical Anesthesia Assess/Plan ASA Score: 4 (Patient understands that she is at increased risk for perioperative complications including myocardial infarct, arrhythmias, CVA, post op vent support/ICU stay, and . Patient wishes to proceed.) Level of consciousness: Cooperative, Oriented, Tranquil Anesthetic Plan: General Monitoring Plan: Standard Monitors, A-Line Recovery Plan: PACU
[2019-02-04] MEDS: Famotidine 20 MG TABLET PO SCH (20:35)
[2019-02-05 04:39] LABS: Basophils % 0.1 %; Eosinophils % 0.1 %; Hematocrit 28.6 % (35.3-44.9); Hemoglobin 8.4 g/dL (11.5-15.4); Immature Granulocytes % 0.6 % (0-4); Lymphocytes # 0.7 K/mcL (0.6-4.6); Lymphocytes % 7.2 %; Mean Corpuscular HGB Conc 29.4 g/dL (31.6-35.5); Mean Corpuscular Hemoglobin 26.2 pg (28.0-33.3); Mean Corpuscular Volume 89.1 fL (83.0-100.0); Monocytes % 9.7 %; Neutrophils # 8.1 K/mcL (1.6-8.9); Platelet Count 209 K/mcL (140-400); Red Blood Count 3.21 M/mcL (3.82-4.97); Red Cell Distribution Width 19.9 % (11.5-14.5); Segmented Neutrophils % 82.3 %; White Blood Count 9.9 K/mcL (4.3-11.1)
[2019-02-05] MEDS: Pantoprazole 40 MG VIAL IVP SCH (06:16)
[2019-02-05] MEDS: MethylPREDNISolone 40 MG/ML VIAL IVP SCH (06:16)
[2019-02-05] MEDS: Gabapentin 300 MG CAPSULE PO SCH ×3 (07:45→22:01)
[2019-02-05] MEDS: amLODIPine 5 MG TABLET PO SCH (07:45)
[2019-02-05] MEDS: Pyridoxine (B-6) 50 MG TABLET PO SCH (07:45)
[2019-02-05] MEDS: Folic Acid 1 MG TABLET PO SCH (07:45)
[2019-02-05 07:49] LABS: Calcium 8.3 mg/dL (8.6-10.3); Magnesium 2.3 mg/dL (1.6-2.6); Potassium 4.1 mEq/L (3.5-5.1)
[2019-02-05] MEDS ORDERED: *HR* Vasopressin 20 UNIT/ML VIAL ONE (07:53)
[2019-02-05] MEDS ORDERED: *HR* FentaNYL (PF) 100 MCG/2 ML VIAL ONE (07:58)
[2019-02-05] MEDS ORDERED: *HR* Propofol 200 MG/20 ML VIAL IVP ONE (07:58)
[2019-02-05] MEDS ORDERED: Lidocaine HCL 4 ML Topical Solution (Laryng-O-Jet Kit Sterile Pak) TP ONE (08:06)
[2019-02-05] MEDS ORDERED: EPHEDrine 50 MG/ML VIAL ONE (08:06)
[2019-02-05] MEDS ORDERED: Lidocaine -MPF 2% 2 ML VIAL ONE ×2 (08:06→08:08)
[2019-02-05] MEDS ORDERED: *HR* Rocuronium Bromide 50 MG/5 ML VIAL ONE (08:06)
[2019-02-05] MEDS ORDERED: *HR* Succinylcholine 200 MG/10 ML VIAL IVP ONE (08:06)
[2019-02-05] MEDS ORDERED: Ondansetron 4 MG/2 ML VIAL ONE (08:06)
--- NOTE | 2019-02-05 08:07 | Acute Care Surgery Event Note ---
Date of Encounter: 02/05/19 Time of Encounter: 07:30 The patient is seen and evaluated on morning rounds with the acute care surgery team. I reviewed the endoscopy report and photographs. I discussed the risks and benefits of surgery with the patient she understands and wishes to proceed. We will proceed with right hemicolectomy for suspected ascending colon malignancy associated with active bleeding and anemia
[2019-02-05] MEDS ORDERED: CefOXitin 1,000 MG VIAL ONE (08:18)
[2019-02-05] MEDS ORDERED: CefOXitin 2,000 MG VIAL ONE (08:42)
[2019-02-05] MEDS ORDERED: Dexamethasone 4 MG/ML VIAL ONE (09:22)
--- NOTE | 2019-02-05 09:36 | Internal Med Progress Note ---
Hospitalist Progress Note - Encounter Date of Encounter: 02/05/19 Time of Encounter: 08:30 - Subjective Interval History: Colonoscopy finding noted. Patient is found to have proximal ascending colon mass which was highly suspicious. Discussed with surgery yesterday and will be taken to the or this morning. No new complaints, denies any chest pain, sh ortness of breath, palpitation, nausea/vomiting, lightheadedness, dysuria, or fever/chills. - Exam Vitals: Temp Pulse Resp BP Pulse Ox 98.0 F 98 16 158/78 97 02/05/19 07:05 02/05/19 07:05 02/05/19 07:05 02/05/19 07:05 02/05/19 07:05 Exam: General: Alert and oriented, not in acute distress. Cardiovascular:Normal S1 & S2, No JVD. Pulse regular. Lungs: Clear to auscultation Abdomen:Soft, non-tender, no rigidity. Extremities:No deformity or swelling Neurological:Normal cognition and motor skills. Non-focal - Assessment and Plan (1) Colonic mass Current Visit: Yes Status: Acute Assessment and Plan: Patient presented with dyspnea on exertion and near syncope which was initially attributed it to mild COPD exacerbation +/- fluid overload however, her Hb in 04/2018 was 13.7. It was 9.5 on presentation and there was a concern for hematochezia Hb subsequently dropped to 6.8 and received 2U pRBC transfusion. Further workup showed iron deficiency and was started on iron supplement Underwent EGD/colonoscopy 02/04: Malignant proximal ascending colon mass CEA 39.3, no evidence of distant metastasis on CT thorax/abdo/pelvis Discussed with surgery, for right hemicolectomy today Plavix remain on hold (2) Anemia Current Visit: Yes Status: Acute Assessment and Plan: as above (3) COPD exacerbation Current Visit: Yes Status: Acute Assessment and Plan: Will complete a short course of steroids. Continue scheduled bronchodilators (4) Bladder wall thickening Current Visit: Yes Status: Acute Assessment and Plan: Initially there was a concern for whether her bleeding was from her vagina hence US pelvis was done subsequently, CT pelvis was done on 02/03 as there was a concern for hypoechoic structure in the lower uterus CT did not replicate the finding in her uterus but instead it showed bladder wall thickening with mild surrounding inflammatory changes and a focus of air Urinalysis however is unimpressive and patient denies any symptoms consistent with UTI. Will continue to monitor off antibiotics. (5) Near syncope Current Visit: Yes Status: Acute Assessment and Plan: likely due to orthostasis from acute blood loss anemia mx as above (6) Hypertension Current Visit: Yes Status: Chronic Assessment and Plan: Meds were held in view of borderline BP in the setting of anemia Norvasc added 02/04. Will switch bb to coreg (7) CKD (chronic kidney disease) stage 3, GFR 30-59 ml/min Current Visit: Yes Status: Chronic Assessment and Plan: Creatinine at her baseline, avoid nephrotoxins (8) History of CVA (cerebrovascular accident) Current Visit: Yes Status: Chronic Assessment and Plan: Plavix on hold, continue statin (9) DVT prophylaxis Current Visit: Yes Status: Acute Assessment and Plan: EPCD - Time Spent with Patient Total time spent is greater than 50% in coordination of care (as documented) at patient's floor/unit and/or counseling patient: 25 - 35 minutes Plan of Care Discussed with: patient Internal Medicine: Result - Labs CBC & Chem 7: 02/05/19 03:53 02/05/19 05:51 Labs: Short CBC 02/05/19 Range/Units 03:53 WBC 9.9 (4.3-11.1) K/mcL Hgb 8.4 L D (11.5-15.4) g/dL Hct 28.6 L (35.3-44.9) % Plt Count 209 (140-400) K/mcL Neutrophils # 8.1 (1.6-8.9) K/mcL BMP 02/05/19 05:51 Sodium 142 Potassium 4.1 Chloride 109 H Carbon Dioxide 28 BUN 22 Creatinine 1.20 Glucose 108 H Calcium 8.3 L Urine 02/04/19 Range/Units 11:56 Urine Color Yellow (Yellow) Urine Clarity Clear (Clear) Urine pH 6.0 (5.0-8.0) pH Units Ur Specific [place] 1.017 (1.010-1.025) Urine Protein Negative (Neg-Trace) mg/dL Urine Glucose (UA) Normal (Normal) mg/dL - ABG Interpretation ABG results: PT/INR, D-dimer PT 13.2 Seconds (9.4-12.1) H 02/02/19 03:21 D-Dimer 506 ng/mLFEU (0-500) H 02/02/19 03:21 - Impressions Impressions Abdomen/Pelvis CT 02/04/19 14:28 IMPRESSION: Irregular luminal abnormality within the ascending colon suspicious for neoplasm. No mesenteric nodularity. Prominent cervix with area of low attenuation centrally possibly a nabothian cyst. Please correlate with physical exam. D/ / 02/04/2019 22:04:58 Keo Klein / jeramy Interpreting Provider: Keo Klein Consult Discharge Plan - Plan Referrals: Paula Enciso, [employer] [Primary Care Provider] - (2) Anemia Qualifiers: Anemia type: iron deficiency Iron deficiency anemia type: chronic blood loss Qualified Code(s): D50.0 - Iron deficiency anemia secondary to blood loss (chronic) (6) Hypertension Qualifiers: Hypertension type: essential hypertension Qualified Code(s): I10 - Essential (primary) hypertension
--- NOTE | 2019-02-05 09:43 | Anesthesia Procedures ---
Date of Encounter: 02/05/19 Time of Encounter: 08:40 Procedures: Anesthesia - Arterial Line Consent obtained: written consent Time out performed: Yes Sedation: Fentanyl (mcg): 50 Supplemental Oxygen via Nasal Cannula (L/min): 2 Local Anesthetic: Lidocaine 1% Size (Gauge): 20 Length (inches): 1 3/4 Technique Used: sterile prep, direct puncture technique Post-Procedure: line taped into place, dry sterile dressing placed Patient tolerated procedure: well, no complications Complications: none Site: Radial L Vitals: See Anesthesia Record Comments: 20 guage left radial arterial catheter place using strict sterile technique on first attempt with ease. Catheter taped in place. Patient tolerated procedure well.
--- NOTE | 2019-02-05 09:58 | Operative Note ---
Date of procedure: 02/05/19 Pre-op diagnosis: Ascending colon cancer Post-op diagnosis: same Procedure: Right hemicolectomy Anesthesia: LOS Surgeon: Gianni Thomas Was there an child welfare assistant present: No Estimated blood loss (cc): 50 Specimen: Right colon Condition: stable Disposition: PACU Procedure in Detail: After informed consent the patient is taken to the major operating suite placed in the supine position and given adequate general endotracheal anesthesia. Timeout was taken and the patient was identified. The abdomen was prepped and draped in sterile fashion utilizing ChloraPrep standard draping techniques. Second timeout was taken. I made a vertical midline incision and entered the abdomen. The colon tumor was easily palpable in the midportion of the ascending colon. Made a full mobilization of the right colon by dividing the lateral peritoneal reflection. The hepatic ligament was divided with surgical clips. The small bowel was divided 5 cm proximal to the ileocecal valve. The transverse colon was divided to the right side of the middle colic artery. Clam ps and hemostatic ligatures were used to divide the mesentery to the right colon. Total blood loss was less than 50 mL. Using a standard dirty technique the antimesenteric and of the staple lines were removed. ANITA was then used to create an anastomosis between the small bowel and transverse colon. The resulting enterotomy was closed with a TA 50 stapler. I circumferentially reinforced the staple line with seromuscular silk stitches to remove the tension from the staple line. There was an excellent Technical result. The mesenteric opening was then closed with interrupted silk. We changed gloves and gowns. The abdomen was irrigated with copious amounts of antibiotic containing solution. The midline was closed with looped 0 PDS. Skin was closed with interrupted 2-0 Vicryl subcutaneous tissues and skin clips. She tolerated the procedure well
[2019-02-05] MEDS: Morphine Sulfate 2 MG/ML SYRINGE IVP PRN ×2 (10:27→10:47)
[2019-02-05] MEDS ORDERED: Naloxone 0.4 MG/ML INJ IVP PRN (11:31)
[2019-02-05] MEDS ORDERED: Ipratropium/Albuterol Neb 3 ML IH PRN (11:31)
[2019-02-05] MEDS ORDERED: Melatonin 3 MG TABLET PO PRN (11:31)
[2019-02-05] MEDS ORDERED: Morphine Sulfate 2 MG/ML SYRINGE IVP PRN (11:31)
[2019-02-05] MEDS ORDERED: Nitroglycerin 0.4 MG TAB.SUBL SL PRN (11:31)
[2019-02-05] MEDS ORDERED: 0.9 % Sodium Chloride 500 ML IVC PRN (11:31)
--- NOTE | 2019-02-05 14:50 | Anesthesia Evaluation Post Op ---
Date of Encounter: 02/05/19 Time of Encounter: 11:05 - Hydration Hydration: NPO - Discharge PostOp Status: Transfer Patient to floor (Patient's vital signs have been reviewed. Patient is stable postoperatively and has adequately recovered from anesthesia. Patient is determined to have stable airway patency and respiratory function including respiratory rate and oxygen saturation. Patient has a stable heart rate, blood pressure and adequate hydration. Patients mental status is acceptable. Patients temperature is appropriate. Pain and nausea are adequately controlled)
[2019-02-05] MEDS: cefOXitin 2,000 MG in 0.9 % Sodium Chloride Mini Bag 100 ML IVPB SCH (14:55)
[2019-02-05] MEDS ORDERED: Pantoprazole 40 MG VIAL IVP SCH (18:00)
[2019-02-05] MEDS ORDERED: Famotidine 20 MG TABLET PO SCH (21:00)
[2019-02-06] MEDS: cefOXitin 2,000 MG in 0.9 % Sodium Chloride Mini Bag 100 ML IVPB SCH (00:22)
[2019-02-06 07:39] LABS: Calcium 8.4 mg/dL (8.6-10.3); Magnesium 2.4 mg/dL (1.6-2.6); Potassium 5.3 mEq/L (3.5-5.1)
[2019-02-06 08:26] LABS: Basophils % 0.1 %; Hematocrit 38.2 % (35.3-44.9); Hemoglobin 11.4 g/dL (11.5-15.4); Immature Granulocytes % 0.8 % (0-4); Lymphocytes # 0.4 K/mcL (0.6-4.6); Lymphocytes % 2.1 %; Mean Corpuscular HGB Conc 29.8 g/dL (31.6-35.5); Mean Corpuscular Hemoglobin 27.8 pg (28.0-33.3); Mean Corpuscular Volume 93.2 fL (83.0-100.0); Mean Platelet Volume 10.9 fL (9.4-12.4); Monocytes # 1.2 K/mcL (0.0-1.3); Neutrophils # 17.8 K/mcL (1.6-8.9); Nucleated Red Blood Cells 0.1 /100 WBC (0); Platelet Count 284 K/mcL (140-400); Red Cell Distribution Width 19.3 % (11.5-14.5); White Blood Count 19.6 K/mcL (4.3-11.1)
[2019-02-06] MEDS ORDERED: 0.9 % Sodium Chloride 1,000 ML IV ONE (08:43)
--- NOTE | 2019-02-06 08:53 | AcuteCareSurgery Progress Note ---
Date of Encounter: 02/06/19 Time of Encounter: 07:30 - Assessment and Plan (1) Colonic mass Current Visit: Yes Status: Acute The patient is postoperative day 1 from right hemicolectomy. Overnight she developed a leukocytosis which is likely stressed the margin a she and not related to any infection. Her hematocrit has elevated to 38. She was given 1 unit of blood during the operation to treat preoperative blood loss from the colon cancer. Intraoperative bleeding was minimal. The transfusion was for treatment of blood loss anemia related to her colon cancer. Overnight, she also developed hyperkalemia and worsening of her BUN and creatinine. This was likely from inadequate hydration and support. She was given a 1 L normal saline bolus as well as placed on continuous saline infusion. We will recheck her renal function and electrolytes tomorrow morning. Recheck hemoglobin and hematocrit. Recheck white blood cell count and follow leukocytosis. Subjective Narrative: The patient is postoperative day 1 from right hemicolectomy. She has hyperkalemia and elevation of her BUN and creatinine. She did receive a single unit blood transfusion yesterday during the operation. This was not secondary to intraoperative blood loss but to treat the blood loss from the bleeding colon cancer prior to the procedure. Blood loss during the procedure was minimal. She is pain-free today. She is thirsty. She did not receive continuous IV fluid hydration last evening. She will be given a bolus of 1 L of saline now and started over 100 mL per hour infusion to support renal function. Follow-up basic metabolic panel tomorrow. We will need to reevaluate her hyperkalemia as well as renal function. Incision is clean. Objective Vital Signs - Last 8 Hours Temp Pulse Resp BP Pulse Ox 02/06/19 08:02 98 F 75 13 119/59 95 02/06/19 04:13 97.5 F L 73 12 116/78 97 Intake and Output 02/05/19 02/06/19 02/06/19 23:59 07:59 15:59 Intake Total 100 / 100 Balance 100 / -300 Intake: IV Fluids 100 / 100 Mefoxin 2,000 MG In 0.9 % 100 / 100 Sodium Chloride (Mini-Bag +) 100 ML @ 200 mls/hr IVPB Q8HR [facility] Rx#:[id number] Other: Weight 70.3 kg Blood Glucose* 162 Patient Weight 02/06/19 23:59 Weight 70.3 kg - General physical appearance no pain, chronically ill - Respiratory normal expansion, normal respiratory effort, clear to auscultation - Cardiovascular Cardiovascular exam: Present: RRR, no murmurs/rubs/gallops - Abdomen Abdomen: Present: soft, non tender - Incision Incision: Present: clean and dry - Neurologic normal coordination, normal sensation - Psychiatric oriented to time, oriented to person, oriented to place, speech is normal, memory intact - Labs 02/06/19 08:08 02/06/19 06:44 Diabetes panel 02/06/19 Range/Units 06:44 Sodium 138 (136-145) mEq/L Potassium 5.3 H (3.5-5.1) mEq/L Chloride 111 H (98-107) mEq/L Carbon Dioxide 21 L (23-29) mEq/L BUN 32 H (8-23) mg/dL Creatinine 2.05 H (0.60-1.20) mg/dL Glucose 165 H (70-105) mg/dL Calcium 8.4 L (8.6-10.3) mg/dL Calcium panel 02/06/19 Range/Units 06:44 Calcium 8.4 L (8.6-10.3) mg/dL Pituitary panel 02/06/19 Range/Units 06:44 Sodium 138 (136-145) mEq/L Potassium 5.3 H (3.5-5.1) mEq/L Chloride 111 H (98-107) mEq/L Carbon Dioxide 21 L (23-29) mEq/L BUN 32 H (8-23) mg/dL Creatinine 2.05 H (0.60-1.20) mg/dL Glucose 165 H (70-105) mg/dL Calcium 8.4 L (8.6-10.3) mg/dL Adrenal panel 02/06/19 Range/Units 06:44 Sodium 138 (136-145) mEq/L Potassium 5.3 H (3.5-5.1) mEq/L Chloride 111 H (98-107) mEq/L Carbon Dioxide 21 L (23-29) mEq/L BUN 32 H (8-23) mg/dL Creatinine 2.05 H (0.60-1.20) mg/dL Glucose 165 H (70-105) mg/dL Calcium 8.4 L (8.6-10.3) mg/dL Consult Discharge Plan - Plan Instructions: Colectomy (DC) Referrals: Paula Enciso CNP [Primary Care Provider] -
[2019-02-06] MEDS ORDERED: predniSONE 20 MG TABLET PO SCH ×2 (09:00)
[2019-02-06] MEDS ORDERED: amLODIPine 5 MG TABLET PO SCH (09:00)
[2019-02-06] MEDS: Folic Acid 1 MG TABLET PO SCH (09:08)
[2019-02-06] MEDS: Pyridoxine (B-6) 50 MG TABLET PO SCH (09:09)
[2019-02-06] MEDS: Pantoprazole 40 MG VIAL IVP SCH (09:09)
[2019-02-06] MEDS: Gabapentin 300 MG CAPSULE PO SCH ×3 (09:09→22:13)
--- NOTE | 2019-02-06 09:46 | Internal Med Progress Note ---
Hospitalist Progress Note - Encounter Date of Encounter: 02/06/19 Time of Encounter: 07:30 - Subjective Interval History: Underwent right hemicolectomy uneventfully yesterday. Postoperatively, she was hypotensive as low as 81/50 but eventually improved to normal level. Cr increased to 2.05 as well. States that her abdominal discomfort is tolerable and denies any N/V. No flatus yet. - Exam Vitals: Temp Pulse Resp BP Pulse Ox 98 F 75 13 119/59 95 02/06/19 08:02 02/06/19 08:02 02/06/19 08:02 02/06/19 08:02 02/06/19 08:02 Exam: General: Alert and oriented, not in acute distress. Cardiovascular:Normal S1 & S2, No JVD. Pulse regular. Lungs: Clear to auscultation Abdomen:Soft, non-tender, no rigidity. Extremities:No deformity or swelling Neurological:Normal cognition and motor skills. Non-focal - Assessment and Plan (1) Colonic mass Current Visit: Yes Status: Acute Assessment and Plan: Patient presented with dyspnea on exertion and near syncope which was initially attributed it to mild COPD exacerbation +/- fluid overload however, her Hb in 04/2018 was 13.7. It was 9.5 on presentation and there was a concern for hematochezia Hb subsequently dropped to 6.8 and received 2U pRBC transfusion. Further workup showed iron deficiency and was started on iron supplement Underwent EGD/colonoscopy 02/04: Malignant proximal ascending colon mass CEA 39.3, no evidence of distant metastasis on CT thorax/abdo/pelvis s/p right hemicolectomy, POD #1 Plavix remain on hold follow with surgery (2) Acute on chronic kidney failure Current Visit: Yes Status: Acute Assessment and Plan: Cr increased from 1.2 - 2.05 was hypotensive post-operatively, ?ATN also, all 3 cell lines are increased suggestive of hemoconcentration will give IVF today and monitor, if it doesn't improve, consider further urine studies, imaging, and nephrology consultation avoid nephrotoxins (3) Anemia Current Visit: Yes Status: Chronic Assessment and Plan: as above for colonic mass (4) COPD exacerbation Current Visit: Yes Status: Acute Assessment and Plan: mild at best. Complete a short course of steroids today. Continue bronchodilators (5) Bladder wall thickening Current Visit: Yes Status: Acute Assessment and Plan: Initially there was a concern for whether her bleeding was from her vagina hence US pelvis was done subsequently, CT pelvis was done on 02/03 as there was a concern for hypoechoic structure in the lower uterus CT did not replicate the finding in her uterus but instead it showed bladder wall thickening with mild surrounding inflammatory changes and a focus of air Urinalysis however is unimpressive and patient denies any symptoms consistent with UTI. Will continue to monitor off antibiotics. (6) Near syncope Current Visit: Yes Status: Acute Assessment and Plan: likely due to orthostasis from acute blood loss anemia mx as above (7) Hypertension Current Visit: Yes Status: Chronic Assessment and Plan: Hold off on antihypertensive (8) History of CVA (cerebrovascular accident) Current Visit: Yes Status: Chronic Assessment and Plan: Plavix on hold, continue statin (9) DVT prophylaxis Current Visit: Yes Status: Acute Assessment and Plan: SQ hep - Time Spent with Patient Total time spent is greater than 50% in coordination of care (as documented) at patient's floor/unit and/or counseling patient: Greater than 35 minutes Internal Medicine: Result - Labs CBC & Chem 7: 02/06/19 08:08 02/06/19 06:44 Labs: Short CBC 02/06/19 Range/Units 08:08 WBC 19.6 H D (4.3-11.1) K/mcL Hgb 11.4 L D (11.5-15.4) g/dL Hct 38.2 (35.3-44.9) % Plt Count 284 (140-400) K/mcL Neutrophils # 17.8 H (1.6-8.9) K/mcL BMP 02/06/19 06:44 Sodium 138 Potassium 5.3 H Chloride 111 H Carbon Dioxide 21 L BUN 32 H Creatinine 2.05 H Glucose 165 H Calcium 8.4 L - ABG Interpretation ABG results: PT/INR, D-dimer PT 13.2 Seconds (9.4-12.1) H 02/02/19 03:21 D-Dimer 506 ng/mLFEU (0-500) H 02/02/19 03:21 Consult Discharge Plan - Plan Instructions: Colectomy (DC) Referrals: Paula Enciso, SHEARER OPERATOR [Primary Care Provider] - (2) Acute on chronic kidney failure Qualifiers: Acute renal failure type: unspecified Chronic kidney disease stage: stage 3 (moderate) Qualified Code(s): N17.9 - Acute kidney failure, unspecified; N18.3 - Chronic kidney disease, stage 3 (moderate) (3) Anemia Qualifiers: Anemia type: iron deficiency Iron deficiency anemia type: chronic blood loss Qualified Code(s): D50.0 - Iron deficiency anemia secondary to blood loss (chronic) (7) Hypertension Qualifiers: Hypertension type: essential hypertension Qualified Code(s): I10 - Essential (primary) hypertension
[2019-02-06] MEDS: 0.9 % Sodium Chloride 1,000 ML IVC SCH (10:54)
[2019-02-06 17:52] LABS: Hematocrit 38.3 % (35.3-44.9); Hemoglobin 11.3 g/dL (11.5-15.4)
[2019-02-06] MEDS ORDERED: *HR* Heparin 5,000 UNIT/ML VIAL SQ SCH (18:00)
[2019-02-06] MEDS: Sodium Ferric Gluconat/Sucrose 125 MG in 0.9 % Sodium Chloride 100 ML IVPB SCH (20:09)
[2019-02-06] MEDS: Famotidine 20 MG TABLET PO SCH (22:13)
[2019-02-06 23:30] LABS: Hematocrit 33.8 % (35.3-44.9); Hemoglobin 10.3 g/dL (11.5-15.4)
[2019-02-07 04:42] LABS: Hematocrit 29.7 % (35.3-44.9); Mean Corpuscular HGB Conc 30.3 g/dL (31.6-35.5); Mean Corpuscular Hemoglobin 28.6 pg (28.0-33.3); Mean Corpuscular Volume 94.3 fL (83.0-100.0); Mean Platelet Volume 10.1 fL (9.4-12.4); Platelet Count 178 K/mcL (140-400); Red Blood Count 3.15 M/mcL (3.82-4.97); White Blood Count 11.7 K/mcL (4.3-11.1)
[2019-02-07 05:00] LABS: Calcium 8.3 mg/dL (8.6-10.3); Potassium 4.9 mEq/L (3.5-5.1)
--- NOTE | 2019-02-07 07:31 | AcuteCareSurgery Progress Note ---
Date of Encounter: 02/07/19 Time of Encounter: 07:30 - Assessment and Plan (1) Colonic mass Current Visit: Yes Status: Acute The patient is postoperative day 1 from right hemicolectomy. Overnight she developed a leukocytosis which is likely stressed the margin a she and not related to any infection. Her hematocrit has elevated to 38. She was given 1 unit of blood during the operation to treat preoperative blood loss from the colon cancer. Intraoperative bleeding was minimal. The transfusion was for treatment of blood loss anemia related to her colon cancer. Overnight, she also developed hyperkalemia and worsening of her BUN and creatinine. This was likely from inadequate hydration and support. She was given a 1 L normal saline bolus as well as placed on continuous saline infusion. We will recheck her renal function and electrolytes tomorrow morning. Recheck hemoglobin and hematocrit. Recheck white blood cell count and follow leukocytosis. 02/07/2019. The patient is seen and evaluated on morning rounds with the acute care surgery team The patient's postoperative day 2 for right hemicolectomy. She had several bloody bowel movements. This could be anastomotic or bleeding from the primary tumor prior to resection filling the left colon. We will observe her hemoglobin and hematocrit over time. She has good bowel sounds. We will start clear liquids today. Subjective Narrative: The patient is seen and evaluated on morning rounds with the acute care surgery team The patient is postoperative day 2 from right hemicolectomy for actively bleeding colon cancer. Today the patient had several bloody bowel movements area the bleeding is not unexpected. The bleeding could be anastomotic or from the colon tumor prior to resection. She had a mild drop in her hemoglobin and hematocrit and we should observe this over time. She has active bowel sounds today and of course had several bowel movements. She will be started on clear liquids. Incision is clean and dry. She has very little incisional pain Objective Vital Signs - Last 8 Hours Temp Pulse Resp BP Pulse Ox 02/07/19 05:00 98.2 F 69 14 169/75 100 02/07/19 01:24 98.2 F 69 14 118/65 98 Intake and Output 02/06/19 02/06/19 02/07/19 15:59 23:59 07:59 Intake Total 700 / 700 0 / 700 120 / 120 Output Total 100 / 500 400 / 500 250 / 250 Balance 600 / 200 -400 / 200 -130 / -130 Intake: IV Fluids 500 / 500 0.9 % Sodium Chloride 1,000 ML 500 / 500 @ 500 mls/hr IV ONCE ONE Rx#: [id number] Oral 200 / 200 0 / 200 120 / 120 Output: Catheter 100 / 500 400 / 500 250 / 250 Female External Catheter 200 / 200 Other: Stool Size Moderate Moderate Stool Consistency loose liquid liquid Stool Color Dark Red Blood Dark Red Blood Dark Red Blood # Voids 1 # Bowel Movements 1 # Bowel Movement Diapers 1 1 Weight 70.3 kg Blood Glucose* 126 134 Patient Weight 02/07/19 23:59 Weight 70.3 kg - General physical appearance well developed, well nourished, no distress, no pain - Respiratory normal expansion, normal respiratory effort, clear to auscultation - Cardiovascular Cardiovascular exam: Present: RRR, no murmurs/rubs/gallops - Abdomen Abdomen: Present: bowel sounds present, soft - Incision Incision: Present: clean and dry - Neurologic normal coordination, normal sensation - Psychiatric oriented to time, oriented to person, oriented to place, speech is normal, memory intact - Labs 02/07/19 04:12 02/07/19 04:12 Diabetes panel 02/06/19 02/07/19 Range/Units 06:44 04:12 Sodium 138 140 (136-145) mEq/L Potassium 5.3 H 4.9 (3.5-5.1) mEq/L Chloride 111 H 113 H (98-107) mEq/L Carbon Dioxide 21 L 22 L (23-29) mEq/L BUN 32 H 41 H (8-23) mg/dL Creatinine 2.05 H 1.98 H (0.60-1.20) mg/dL Glucose 165 H 126 H (70-105) mg/dL Calcium 8.4 L 8.3 L (8.6-10.3) mg/dL Calcium panel 02/06/19 02/07/19 Range/Units 06:44 04:12 Calcium 8.4 L 8.3 L (8.6-10.3) mg/dL Pituitary panel 02/06/19 02/07/19 Range/Units 06:44 04:12 Sodium 138 140 (136-145) mEq/L Potassium 5.3 H 4.9 (3.5-5.1) mEq/L Chloride 111 H 113 H (98-107) mEq/L Carbon Dioxide 21 L 22 L (23-29) mEq/L BUN 32 H 41 H (8-23) mg/dL Creatinine 2.05 H 1.98 H (0.60-1.20) mg/dL Glucose 165 H 126 H (70-105) mg/dL Calcium 8.4 L 8.3 L (8.6-10.3) mg/dL Adrenal panel 02/06/19 02/07/19 Range/Units 06:44 04:12 Sodium 138 140 (136-145) mEq/L Potassium 5.3 H 4.9 (3.5-5.1) mEq/L Chloride 111 H 113 H (98-107) mEq/L Carbon Dioxide 21 L 22 L (23-29) mEq/L BUN 32 H 41 H (8-23) mg/dL Creatinine 2.05 H 1.98 H (0.60-1.20) mg/dL Glucose 165 H 126 H (70-105) mg/dL Calcium 8.4 L 8.3 L (8.6-10.3) mg/dL - VTE Documentation of Mechanical Device: Intermittent pneumatic compression device Consult Discharge Plan - Plan Instructions: Colectomy (DC) Referrals: Paula Enciso, SOLAR TECH [Primary Care Provider] -
[2019-02-07] MEDS: Gabapentin 300 MG CAPSULE PO SCH ×3 (09:19→19:51)
[2019-02-07] MEDS: Pyridoxine (B-6) 50 MG TABLET PO SCH (09:19)
[2019-02-07] MEDS: Folic Acid 1 MG TABLET PO SCH (09:19)
[2019-02-07] MEDS: Pantoprazole 40 MG VIAL IVP SCH (09:20)
--- NOTE | 2019-02-07 09:50 | Internal Med Progress Note ---
Hospitalist Progress Note - Encounter Date of Encounter: 02/07/19 Time of Encounter: 09:50 - Subjective Interval History: Patient seen and examined this morning at bedside. No acute overnight events. Patient denies any new complaints. Has abdominal soreness. She is passing gas. Still with dark blood in stool. Denies any chest pain or difficulty breathing. Saturating well on 2 L nasal cannula. - Exam Vitals: Temp Pulse Resp BP Pulse Ox 98.5 F 74 16 163/75 99 02/07/19 07:26 02/07/19 07:26 02/07/19 07:26 02/07/19 07:26 02/07/19 07:26 Exam: General: In no acute distress. Respiratory exam: no accessory muscle use. Mild crackles at base b/l. Cardiovascular exam: RRR, +S1, +S2. no murmur, gallop, rubs. GI/Abdominal exam: mild generalized tenderness, mildline surgical dressing in place, Non-distended, normal bowel sounds, soft. Extremities exam: no pedal edema, pulses palpable in b/l lower extremities. no calf tenderness. mil UE swelling in hands. Neurological exam: CN II-XII intact, AO X3, no focal deficits. Skin exam: No skin rash - Assessment and Plan (1) Near syncope Current Visit: Yes Status: Acute (2) COPD exacerbation Current Visit: Yes Status: Acute (3) DVT prophylaxis Current Visit: Yes Status: Acute (4) Hypertension Current Visit: Yes Status: Chronic (5) Anemia Current Visit: Yes Status: Chronic (6) History of CVA (cerebrovascular accident) Current Visit: Yes Status: Chronic (7) Bladder wall thickening Current Visit: Yes Status: Acute (8) Colonic mass Current Visit: Yes Status: Acute (9) Acute on chronic kidney failure Current Visit: Yes Status: Acute - Summary of Assessment and Plan Summary of Assessment and Plan: Assessment Acute Colonic mass acute on chronic blood loss anemia RAMONA on cKD3 COPD exacerbation-resolved near syncope reactive leukocytosis Chronic HTN COPD h/o CVA Plan - s/p EGD/colonoscopy 02/04 with Malignant proximal ascending colon mass. s/p Rt hemicolectomy on 02/05/19. CEA 39.3, no evidence of distant metastasis on CT thorax/abdo/pelvis. awaiting pathology report. Plavix remain on hold - Surgery following. recommendation appreciated. Diet progressed. Blood in stool thought likely to be from anastomosis or prior bleeding. Monitor Hb. - Ramona possibly prerenal given signs of hemocontration. also had hypotensive episode post-operatively, ?ATN. c/w IVF. Has reasonable urine output and somewhat improving renal function. continue to monitor. - anemia is likely related to blood loss from colonic mass. Has had 3 PRBC in total. monitor hb for now. c/w iron infusioin. - COPD exacerbation resolved. - Initial concern for whether her bleeding was from her vagina hence US pelvis was done. subsequently, CT pelvis was done on 02/03 as there was a concern for hypoechoic structure in the lower uterus. repeat CT did not replicate the finding in her uterus but instead it showed bladder wall thickening with mild surrounding inflammatory changes and a focus of air. Urinalysis however is unimpressive and patient denies any symptoms consistent with UTI. Will continue to monitor off antibiotics. - home antihypertensive on hold given episode of hypotension with ramona. Will r esume depending on BP over the course of the day. - has h/o CVA. Plavix on hold, continue statin. Will likely resume in 1-2 days once bleeding stops. - epcd for dvt ppx - Time Spent with Patient Total time spent is greater than 50% in coordination of care (as documented) at patient's floor/unit and/or counseling patient: Internal Medicine: Result - Labs CBC & Chem 7: 02/07/19 04:12 02/07/19 04:12 Labs: Short CBC 02/06/19 02/06/19 02/07/19 Range/Units 17:33 23:08 04:12 WBC 11.7 H (4.3-11.1) K/mcL Hgb 11.3 L 10.3 L 9.0 L (11.5-15.4) g/dL Hct 38.3 33.8 L 29.7 L (35.3-44.9) % Plt Count 178 (140-400) K/mcL BMP 02/07/19 04:12 Sodium 140 Potassium 4.9 Chloride 113 H Carbon Dioxide 22 L BUN 41 H Creatinine 1.98 H Glucose 126 H Calcium 8.3 L - ABG Interpretation ABG results: PT/INR, D-dimer PT 13.2 Seconds (9.4-12.1) H 02/02/19 03:21 D-Dimer 506 ng/mLFEU (0-500) H 02/02/19 03:21 - VTE Documentation of Mechanical Device: Intermittent pneumatic compression device Consult Discharge Plan - Plan Instructions: Colectomy (DC) Referrals: Paula Enciso, BOAT DOCK OPERATOR [Primary Care Provider] - (4) Hypertension Qualifiers: Hypertension type: essential hypertension Qualified Code(s): I10 - Essential (primary) hypertension (5) Anemia Qualifiers: Anemia type: iron deficiency Iron deficiency anemia type: chronic blood loss Qualified Code(s): D50.0 - Iron deficiency anemia secondary to blood loss (chronic) (9) Acute on chronic kidney failure Qualifiers: Acute renal failure type: unspecified Chronic kidney disease stage: stage 3 (moderate) Qualified Code(s): N17.9 - Acute kidney failure, unspecified; N18.3 - Chronic kidney disease, stage 3 (moderate)
[2019-02-07] MEDS: 0.9 % Sodium Chloride 1,000 ML IVC SCH (12:17)
[2019-02-07 15:34] LABS: Bilirubin,Urine Negative (Negative); Blood,Urine Small (Negative); Clarity,Urine Clear (Clear); Color,Urine Yellow (Yellow); Glucose,Urine (UA) Normal (Normal); Ketones,Urine Negative (Negative); Leukocyte Esterase,Urine Trace (Negative); Nitrite,Urine Negative (Negative); Protein,Urine Negative (Neg-Trace); Specific Gravity,Urine 1.008 (1.010-1.025); Urobilinogen,Urine Normal (Normal)
[2019-02-07 15:36] LABS: Bacteria,Urine None Seen per hpf (None-Few); Hyaline Casts,Urine None Seen per lpf (None-Few); RBC,Urine 0-3 per hpf (0-3); Squamous Epithelial Cell,Urine Many per lpf (None-Few)
[2019-02-07] MEDS: Famotidine 20 MG TABLET PO SCH (19:51)
[2019-02-08 04:45] LABS: Hematocrit 31.4 % (35.3-44.9); Hemoglobin 9.7 g/dL (11.5-15.4); Mean Corpuscular HGB Conc 30.9 g/dL (31.6-35.5); Mean Corpuscular Hemoglobin 28.6 pg (28.0-33.3); Mean Corpuscular Volume 92.6 fL (83.0-100.0); Mean Platelet Volume 10.3 fL (9.4-12.4); Platelet Count 205 K/mcL (140-400); Red Blood Count 3.39 M/mcL (3.82-4.97); White Blood Count 13.7 K/mcL (4.3-11.1)
[2019-02-08 05:02] LABS: Calcium 8.2 mg/dL (8.6-10.3); Potassium 4.1 mEq/L (3.5-5.1)
[2019-02-08] MEDS: 0.9 % Sodium Chloride 1,000 ML IVC SCH (05:36)
[2019-02-08] MEDS: Folic Acid 1 MG TABLET PO SCH (09:05)
[2019-02-08] MEDS: Pantoprazole 40 MG VIAL IVP SCH (09:05)
[2019-02-08] MEDS: Pyridoxine (B-6) 50 MG TABLET PO SCH (09:05)
[2019-02-08] MEDS: Gabapentin 300 MG CAPSULE PO SCH ×3 (09:05→22:47)
[2019-02-08] MEDS: Sodium Ferric Gluconat/Sucrose 125 MG in 0.9 % Sodium Chloride 100 ML IVPB SCH (09:06)
--- NOTE | 2019-02-08 09:46 | AcuteCareSurgery Progress Note ---
Date of Encounter: 02/08/19 Time of Encounter: 07:00 - Assessment and Plan (1) Colonic mass Current Visit: Yes Status: Acute POD#3 right hemicolectomy for suspected colon cancer. Pt progressing satisfactorily. Maintain clears until increased bowel function. PT/OT consults. solar manager for DC planning. Add IV Zosyn d/t elevating WBC post colon surgery. (2) Atrial fibrillation with RVR Current Visit: Yes Status: Acute resolved, NSR now (3) COPD exacerbation Current Visit: Yes Status: Acute (4) Hypertension Current Visit: Yes Status: Chronic Qualifiers: Hypertension type: essential hypertension Qualified Code(s): I10 - Essential (primary) hypertension (5) CKD (chronic kidney disease) stage 3, GFR 30-59 ml/min Current Visit: Yes Status: Chronic Subjective Patient reports: no new complaints, feels better, still having pain, pain is less, tolerating liquids well, no flatus, bowel movement (liquid and red), afebrile Objective Vital Signs - Last 8 Hours Temp Pulse Resp BP Pulse Ox 02/08/19 08:00 98.2 F 93 16 192/78 97 02/08/19 05:53 98.6 F 76 15 193/78 98 Intake and Output 02/07/19 02/08/19 02/08/19 23:59 07:59 15:59 Intake Total 700 / 1600 60 / 60 0 / 60 Output Total 150 / 900 1300 / 1300 0 / 1300 Balance 550 / 700 -1240 / -1240 0 / -1240 Intake: IV Fluids 580 / 580 0 / 0 0.9 % Sodium Chloride 1,000 ML 580 / 580 0 / 0 @ 80 mls/hr IVC .[id number] [facility] Rx #:[id number] Oral 120 / 1020 60 / 60 0 / 60 Output: Urine 150 / 150 0 / 0 Catheter 1300 / 1300 Other: Stool Size Moderate Stool Consistency liquid Stool Color Dark Red Blood # Bowel Movement Diapers 1 Weight 70.4 kg Patient Weight 02/08/19 23:59 Weight 70.4 kg - General physical appearance no distress, moderate pain (as expected post-op) - Eyes PERRL, normal ocular movement - ENT normal mucosa, no congestion - Neck Neck exam: trachea midline, no venous distension - Respiratory normal respiratory effort, clear to auscultation - Cardiovascular Cardiovascular exam: Present: RRR. Absent: JVD - Abdomen Abdomen: Present: soft, tender (as expected post-op). Absent: bowel sounds present (hypoactive) - Neurologic CN 2-12 grossly intact, normal coordination - Musculoskeletal normal posture - Psychiatric oriented to time, oriented to person, oriented to place - Labs 02/08/19 04:11 02/08/19 04:11 Diabetes panel 02/08/19 Range/Units 04:11 Sodium 141 (136-145) mEq/L Potassium 4.1 (3.5-5.1) mEq/L Chloride 110 H (98-107) mEq/L Carbon Dioxide 21 L (23-29) mEq/L BUN 29 H (8-23) mg/dL Creatinine 1.31 H (0.60-1.20) mg/dL Glucose 107 H (70-105) mg/dL Calcium 8.2 L (8.6-10.3) mg/dL Calcium panel 02/08/19 Range/Units 04:11 Calcium 8.2 L (8.6-10.3) mg/dL Pituitary panel 02/08/19 Range/Units 04:11 Sodium 141 (136-145) mEq/L Potassium 4.1 (3.5-5.1) mEq/L Chloride 110 H (98-107) mEq/L Carbon Dioxide 21 L (23-29) mEq/L BUN 29 H (8-23) mg/dL Creatinine 1.31 H (0.60-1.20) mg/dL Glucose 107 H (70-105) mg/dL Calcium 8.2 L (8.6-10.3) mg/dL Adrenal panel 02/08/19 Range/Units 04:11 Sodium 141 (136-145) mEq/L Potassium 4.1 (3.5-5.1) mEq/L Chloride 110 H (98-107) mEq/L Carbon Dioxide 21 L (23-29) mEq/L BUN 29 H (8-23) mg/dL Creatinine 1.31 H (0.60-1.20) mg/dL Glucose 107 H (70-105) mg/dL Calcium 8.2 L (8.6-10.3) mg/dL - VTE Documentation of Mechanical Device: Intermittent pneumatic compression device Consult Discharge Plan - Plan Instructions: Colectomy (DC) Referrals: Paula Enciso CNP [Primary Care Provider] -
[2019-02-08] MEDS: Piperacillin/Tazobactam 3.375 GM in 0.9 % Sodium Chloride Mini Bag 100 ML IVPB SCH ×2 (10:47→18:29)
--- NOTE | 2019-02-08 10:52 | Internal Med Progress Note ---
Hospitalist Progress Note - Encounter Date of Encounter: 02/08/19 Time of Encounter: 10:50 - Subjective Interval History: Patient seen and examined this morning at bedside. No acute overnight events. Denies new complaints. Is passing gas but has not had BM yet. Denies any nausea or vomiting. Denies any chest pain or difficulty breathing. - Exam Vitals: Temp Pulse Resp BP Pulse Ox 98.2 F 93 16 185/72 97 02/08/19 08:00 02/08/19 08:00 02/08/19 08:00 02/08/19 10:39 02/08/19 08:00 Exam: General: In no acute distress. Respiratory exam: no accessory muscle use. Mild crackles at base b/l. Cardiovascular exam: RRR, +S1, +S2. no murmur, gallop, rubs. GI/Abdominal exam: mild generalized tenderness, mildline surgical dressing in place, Non-distended, normal bowel sounds, soft. chirinos in place Extremities exam: trace pedal edema, pulses palpable in b/l lower extremities. no calf tenderness. mild UE swelling in hands. Neurological exam: CN II-XII intact, AO X3, no focal deficits. Skin exam: No skin rash - Assessment and Plan (1) Near syncope Current Visit: Yes Status: Acute (2) COPD exacerbation Current Visit: Yes Status: Acute (3) DVT prophylaxis Current Visit: Yes Status: Acute (4) Hypertension Current Visit: Yes Status: Chronic (5) Anemia Current Visit: Yes Status: Chronic (6) History of CVA (cerebrovascular accident) Current Visit: Yes Status: Chronic (7) Bladder wall thickening Current Visit: Yes Status: Acute (8) Colonic mass Current Visit: Yes Status: Acute (9) Acute on chronic kidney failure Current Visit: Yes Status: Acute - Summary of Assessment and Plan Summary of Assessment and Plan: Assessment Acute Colonic mass-adenocarcinoma acute on chronic blood loss anemia RAMONA on cKD3 COPD exacerbation-resolved near syncope Chronic HTN COPD h/o CVA Plan - s/p EGD/colonoscopy 02/04 with Malignant proximal ascending colon mass. s/p Rt hemicolectomy on 02/05/19. CEA 39.3, no evidence of distant metastasis on CT thorax/abdo/pelvis. path report with adenocarcinoma, awaiting full report. Plavix remain on hold. Will consult hematology oncology. - Surgery following. Diet progressed. Has not had BM yet. awaiting resumption of bowel function. Blood in stool thought likely to be from anastomosis or prior bleeding. Monitor Hb. Started on zosyn per surgery given leukocytois and post colon surgery. consulte PT/OT. appreciate surgery input. - Ramona possibly parental given signs of hemoconcentration. also had hypotensive episode post-operatively. Improved with IVF. almost back to baseline. will give 500 of LR at 50 cc. Has good urine output. continue to monitor. strict I/O. avoid nephrotoxins. - anemia is likely related to blood loss from colonic mass. Has had 3 PRBC in total. monitor hb for now. c/w iron infusioin. - COPD exacerbation resolved. - bladder wall thickening with mild surrounding inflammatory changes and a focus of air. Urinalysis however is unimpressive and patient asymptomatic. had held antibiotics before but started given post opt and with leukocytosis. - BP now elevated. will resume home antihypertensive. - has h/o CVA. Plavix on hold, continue statin. Will likely resume in 1-2 days once bleeding stops. - epcd for dvt ppx Internal Medicine: Result - Labs CBC & Chem 7: 02/08/19 04:11 02/08/19 04:11 Labs: Short CBC 02/08/19 Range/Units 04:11 WBC 13.7 H (4.3-11.1) K/mcL Hgb 9.7 L (11.5-15.4) g/dL Hct 31.4 L (35.3-44.9) % Plt Count 205 (140-400) K/mcL BMP 02/08/19 04:11 Sodium 141 Potassium 4.1 Chloride 110 H Carbon Dioxide 21 L BUN 29 H Creatinine 1.31 H Glucose 107 H Calcium 8.2 L Urine 02/07/19 Range/Units 15:28 Urine Color Yellow (Yellow) Urine Clarity Clear (Clear) Urine pH 6.0 (5.0-8.0) pH Units Ur Specific [place] 1.008 L (1.010-1.025) Urine Protein Negative (Neg-Trace) mg/dL Urine Glucose (UA) Normal (Normal) mg/dL - ABG Interpretation ABG results: PT/INR, D-dimer PT 13.2 Seconds (9.4-12.1) H 02/02/19 03:21 D-Dimer 506 ng/mLFEU (0-500) H 02/02/19 03:21 - VTE Documentation of Mechanical Device: Intermittent pneumatic compression device Consult Discharge Plan - Plan Instructions: Colectomy (DC) Referrals: Paula Enciso, FISCAL MANAGER [Primary Care Provider] - (4) Hypertension Qualifiers: Hypertension type: essential hypertension Qualified Code(s): I10 - Essential (primary) hypertension (5) Anemia Qualifiers: Anemia type: iron deficiency Iron deficiency anemia type: chronic blood loss Qualified Code(s): D50.0 - Iron deficiency anemia secondary to blood loss (chronic) (9) Acute on chronic kidney failure Qualifiers: Acute renal failure type: unspecified Chronic kidney disease stage: stage 3 (moderate) Qualified Code(s): N17.9 - Acute kidney failure, unspecified; N18.3 - Chronic kidney disease, stage 3 (moderate)
[2019-02-08] MEDS ORDERED: Ringers Solution, Lactated 1,000 ML IVC SCH (11:15)
[2019-02-08] MEDS: hydrALAZINE 25 MG TABLET PO SCH (11:59)
[2019-02-08] MEDS ORDERED: Ringers Solution, Lactated 500 ML IVC SCH (15:30)
--- NOTE | 2019-02-08 17:50 | Oncology Inp Consult Note ---
Date of Encounter: 02/08/19 Time of Encounter: 17:49 Assessment and Plan (1) Acute on chronic kidney failure Status: Acute Assessment and plan: Chronic kidney disease stage III creatinine improved to 1.3 from 2 Qualifiers: Acute renal failure type: unspecified Chronic kidney disease stage: stage 3 (moderate) Qualified Code(s): N17.9 - Acute kidney failure, unspecified; N18.3 - Chronic kidney disease, stage 3 (moderate) (2) Colonic mass Status: Acute Assessment and plan: Ascending colon adenocarcinoma. May need contrast CT to evaluate liver better once kidney function improved. CEA has come down to 25 on 02/09/2019 and may repeat that again. Await final pathology report. Treatment recommendation after pathology report (3) Anemia Status: Chronic Assessment and plan: Iron deficiency is playing a role. B12 folate levels normal. Current hemoglobin around 10 Qualifiers: Anemia type: iron deficiency Iron deficiency anemia type: chronic blood loss Qualified Code(s): D50.0 - Iron deficiency anemia secondary to blood loss (chronic) - Data of Consult Patient: new to practice Requesting Physician: Essence Canales MD Primary Care Provider: Paula Enciso CNP - Consult Narrative Reason for consult: Right colon carcinoma History of present illness: Ms. Ann is a 78 year old female with a past medical history of remote CVA, hypertension, hyperlipidemia, COPD on 2 L home oxygen who initially presented to [facility] due to shortness of breath, chest pain and near syncope. Her hemoglobin dropped from baseline of 12-6.8. Improved with transfusion. She had two-week history of melena preceding admission Colonoscopy 02/03/2019 showed adenocarcinoma in the ascending colon. Sigmoid and descending colon tubular adenoma. EGD showed antral-type mucosa with calvin mical gastropathy. No H. pylori CEA elevated at 39 02/05/2019. CT abdomen and pelvis without contrast showed luminal abnormality in the ascending colon. No mesentric nodularity and noncontrast liver no focal lesions. Underwent right hemicolectomy 02/05/2019 Dr. Thomas. Final pathology pending Her MCV was normal prior transfusion. Iron saturation low. Past Med Surg Social Fam HX - Past Medical History Medical history: COPD, CVA, hyperlipidemia, renal disease, thyroid disease Psychiatric history: no psych history - Social History Smoking Status: Former smoker Smokeless Tobacco Status: No Alcohol use: none Drug use: none Medications and Allergies Albuterol Sulfate [Ventolin Hfa] 2 puff PO Q4-6H PRN 02/02/19 [History] Atorvastatin [Lipitor] 40 mg PO DAILY 02/02/19 [History] Clopidogrel Bisulfate [Plavix] 75 mg PO DAILY 02/02/19 [History] Fluticasone Propionate Nasal [Flonase] 50 mcg NS BID 02/02/19 [History] Folic Acid 1 mg PO DAILY 02/02/19 [History] Furosemide [Lasix] 40 mg PO DAILY 02/02/19 [History] Gabapentin [Neurontin] 600 mg PO TID 02/02/19 [History] Hydralazine HCl 50 mg PO DAILY 02/02/19 [History] Levothyroxine Sodium [Synthroid] 200 mcg PO QAM 02/02/19 [History] Metoprolol Tartrate 50 mg PO DAILY 02/02/19 [History] Omeprazole [PriLOSEC] 40 mg PO DAILY 02/02/19 [History] Potassium Chloride [K-Tab ER] 20 meq PO DAILY 02/02/19 [History] Pyridoxine (B-6) [Vitamin B-6] 50 mg PO DAILY 02/02/19 [History] Ranitidine HCl [Heartburn Relief] 150 mg PO BID 02/02/19 [History] Sertraline [Zoloft] 50 mg PO DAILY 02/02/19 [History] traZODone [TraZODone] 50 mg PO HS 02/02/19 [History] Allergy/AdvReac Type Severity Reaction Status Date / Time cefdinir [From Omnicef] Allergy Anxiety Verified 02/02/19 18:18 Review of systems: 12 point review of systems obtained. All negative except Recovering from surgery. Abdominal pain better. Able to tolerate liquid feedings. No headache. No chest pain. Mild shortness of breath Oncology - Exam - Constitutional Exam: GENERAL: Alert and oriented, well appearing. Mental Status: Affect appropriate for circumstances HEENT: Sclerae anicteric. No mucositis or thrush. No other oral or pharyngeal lesions or erythema. Skin: No rashes or petechiae. No evidence of skin malignancy Lymph nodes: No cervical, supraclavicular, axillary, or inguinal adenopathy. Lungs: Clear to auscultation and percussion bilaterally. Cardiovascular: Regular rate and rhythm. No gallops, murmurs, or rubs. Abdomen: Recovering from recent surgery . Dressing on the abdominal wound Extremities: No edema. No calf swelling or tenderness. No joint deformity. Neurologic: Alert, cranial nerves II-XII intact; normal gait; no focal weakness or sensory abnormalities. Consult Discharge Plan - Plan Instructions: Colectomy (DC) Additional Instructions: General Surgical Discharge Instructions 1. No pushing, pulling, or lifting greater than 15 lbs for 6 weeks. 2. You may remove your dressings and shower beginning today, but no tub baths, soaking, or swimming for 2 weeks. 3. No driving until otherwise directed by rehab or PCP. 4. Apply ice to the abdomen 20 minutes every hour that your week. Take 1000 mg acetaminophen every 6 hours. If this does not relieve discomfort, you may take the as needed oxycodone. Eat a small snack with pain medication as this will help reduce the risk of nausea. Take narcotics as directed. Do not take more narcotics then directed and do not share your narcotics with any other person. Do not drink alcohol while on narcotics. You can take the Zofran/ondansetron if needed for nausea or with a dose of narcotics to prevent nausea. 5. Take stool softeners (Colace) or a water based laxative (Miralax) while taking narcotics. You may hold for loose stools. 6. Report any fevers greater than 100.5F, increase abdominal discomfort, drainage that looks like pus, increased redness or pain at the surgical site, or any vomiting. 7. Report any pain in the calves, shortness of breath, or rapid heartbeat. 8. Follow-up in the office as directed. 9. If you were prescribed antibiotics, do not stop them without talking to your provider. Follow-up with Dr. Gruber for acute postoperative Caare. After that, you will see Dr. Rodriguez Referrals: Von Donaldson [Partnered Physician] - 02/23/19 8:40 am Paula Enciso CNP [Primary Care Provider] - Inpatient Charges Provider: Dr. Tab Escudero Consult - Inpatient: [id number]
[2019-02-08] MEDS: Famotidine 20 MG TABLET PO SCH (22:47)
[2019-02-09] MEDS: Piperacillin/Tazobactam 3.375 GM in 0.9 % Sodium Chloride Mini Bag 100 ML IVPB SCH ×3 (02:58→18:28)
[2019-02-09 06:47] LABS: Basophils % 0.1 %; Eosinophils # 0.3 K/mcL (0.0-0.6); Eosinophils % 2.6 %; Hematocrit 30.2 % (35.3-44.9); Hemoglobin 9.7 g/dL (11.5-15.4); Immature Granulocytes % 0.8 % (0-4); Lymphocytes # 0.5 K/mcL (0.6-4.6); Lymphocytes % 4.6 %; Mean Corpuscular HGB Conc 32.1 g/dL (31.6-35.5); Mean Corpuscular Hemoglobin 28.5 pg (28.0-33.3); Mean Corpuscular Volume 88.8 fL (83.0-100.0); Mean Platelet Volume 10.3 fL (9.4-12.4); Monocytes # 0.8 K/mcL (0.0-1.3); Monocytes % 6.9 %; Neutrophils # 9.9 K/mcL (1.6-8.9); Platelet Count 187 K/mcL (140-400); Red Cell Distribution Width 19.1 % (11.5-14.5); White Blood Count 11.7 K/mcL (4.3-11.1)
[2019-02-09 07:06] LABS: Calcium 8.1 mg/dL (8.6-10.3); Potassium 3.4 mEq/L (3.5-5.1)
[2019-02-09 07:54] LABS: Folate > 22.3 ng/mL (3.0-16.0); Vitamin B12 317 pg/mL (250-1100)
[2019-02-09] MEDS: Pyridoxine (B-6) 50 MG TABLET PO SCH (08:31)
[2019-02-09] MEDS: Gabapentin 300 MG CAPSULE PO SCH ×3 (08:31→22:27)
[2019-02-09] MEDS: hydrALAZINE 25 MG TABLET PO SCH (08:31)
[2019-02-09] MEDS: Folic Acid 1 MG TABLET PO SCH (08:32)
[2019-02-09] MEDS: Pantoprazole 40 MG VIAL IVP SCH (08:32)
--- NOTE | 2019-02-09 09:41 | AcuteCareSurgery Progress Note ---
<JayceDaryb Marcio - Last Filed: 02/09/19 09:39> Date of Encounter: 02/09/19 Time of Encounter: 08:00 - Assessment and Plan (1) Colonic mass Current Visit: Yes Status: Acute Date of procedure: 02/05/19 Pre-op diagnosis: Ascending colon cancer Post-op diagnosis: same Procedure: Right hemicolectomy Anesthesia: GETA Surgeon: Gianni Thomas POD #4 as above (pathology remains pending). s/p colonoscopy per Dr. Lucia - adenocarcinoma. She is recovering as expected from her surgical procedure. She is having bowel function and her exam is negative. We will advance her to FLD with dietary supplement and she can advance diet as tolerated. PT/OT recommend SF and surgery strongly encouraged patient to adhere to recommendations. Surgery avoided recommendations of NSAIDs given continued anemia (no evidence for acute postoperative bleed noted). Acute Care surgery will follow from a distance. She will need general surgery follow-up at d/c. Surgery will follow from a distance. Please call if any further questions or needs arise. Subjective Patient reports: no new complaints, pain is less, tolerating liquids well, voiding w/o difficulty, flatus, bowel movement, afebrile Objective Vital Signs - Last 8 Hours Temp Pulse Resp BP Pulse Ox 02/09/19 07:51 97.8 F 71 18 172/75 94 02/09/19 05:01 99 F 73 14 159/66 92 Intake and Output 02/08/19 02/09/19 02/09/19 23:59 07:59 15:59 Intake Total 820 / 2380 60 / 60 Output Total 2800 / 2800 Balance 820 / 580 -2740 / -2740 Intake: IV Fluids 100 / 200 Zosyn 3.375 GM In 0.9 % Sodium 100 / 200 Chloride (Mini-Bag +) 100 ML @ 25 mls/hr IVPB Q8H FORMERLY [facility], [facility]–1983 Rx#: [id number] Oral 720 / 2180 60 / 60 Output: Urine 0 / 0 Catheter 2800 / 2800 Other: Meal Dinner Percent of Meal Consumed 100% Weight 71.8 kg Patient Weight 02/09/19 23:59 Weight 71.8 kg - General physical appearance no distress, no pain - ENT atraumatic, normocephalic - Neck Neck exam: trachea midline - Respiratory normal expansion, normal respiratory effort - Abdomen Abdomen: Present: bowel sounds present, soft, tender (expected postoperative.) Hernia: none - Integumentary no rash - Neurologic normal sensation - Musculoskeletal normal posture - Labs 02/09/19 06:25 02/09/19 06:25 Diabetes panel 02/09/19 Range/Units 06:25 Sodium 142 (136-145) mEq/L Potassium 3.4 L (3.5-5.1) mEq/L Chloride 110 H (98-107) mEq/L Carbon Dioxide 29 (23-29) mEq/L BUN 14 (8-23) mg/dL Creatinine 1.08 (0.60-1.20) mg/dL Glucose 129 H (70-105) mg/dL Calcium 8.1 L (8.6-10.3) mg/dL Calcium panel 02/09/19 Range/Units 06:25 Calcium 8.1 L (8.6-10.3) mg/dL Pituitary panel 02/09/19 Range/Units 06:25 Sodium 142 (136-145) mEq/L Potassium 3.4 L (3.5-5.1) mEq/L Chloride 110 H (98-107) mEq/L Carbon Dioxide 29 (23-29) mEq/L BUN 14 (8-23) mg/dL Creatinine 1.08 (0.60-1.20) mg/dL Glucose 129 H (70-105) mg/dL Calcium 8.1 L (8.6-10.3) mg/dL Adrenal panel 02/09/19 Range/Units 06:25 Sodium 142 (136-145) mEq/L Potassium 3.4 L (3.5-5.1) mEq/L Chloride 110 H (98-107) mEq/L Carbon Dioxide 29 (23-29) mEq/L BUN 14 (8-23) mg/dL Creatinine 1.08 (0.60-1.20) mg/dL Glucose 129 H (70-105) mg/dL Calcium 8.1 L (8.6-10.3) mg/dL - VTE Documentation of Mechanical Device: Intermittent pneumatic compression device Consult Discharge Plan - Plan Instructions: Colectomy (DC) Additional Instructions: General Surgical Discharge Instructions 1. No pushing, pulling, or lifting greater than 15 lbs for 6 weeks. 2. You may remove your dressings and shower beginning today, but no tub baths, soaking, or swimming for 2 weeks. 3. No driving until otherwise directed by rehab or PCP. 4. Apply ice to the abdomen 20 minutes every hour that your week. Take 1000 mg acetaminophen every 6 hours. If this does not relieve discomfort, you may take the as needed oxycodone. Eat a small snack with pain medication as this will help reduce the risk of nausea. Take narcotics as directed. Do not take more narcotics then directed and do not share your narcotics with any other person. Do not drink alcohol while on narcotics. You can take the Zofran/ondansetron if needed for nausea or with a dose of narcotics to prevent nausea. 5. Take stool softeners (Colace) or a water based laxative (Miralax) while taking narcotics. You may hold for loose stools. 6. Report any fevers greater than 100.5F, increase abdominal discomfort, drainage that looks like pus, increased redness or pain at the surgical site, or any vomiting. 7. Report any pain in the calves, shortness of breath, or rapid heartbeat. 8. Follow-up in the office as directed. 9. If you were prescribed antibiotics, do not stop them without talking to your provider. Follow-up with Dr. Gruber for acute postoperative Caare. After that, you will see Dr. Rodriguez Referrals: Paula Enciso, PRINCIPAL CYBER ENGINEER [Primary Care Provider] - Von Donaldson [Partnered Physician] - 02/23/19 8:40 am <Gianni Thomas - Last Filed: 02/09/19 15:16> Date of Encounter: 02/09/19 - Assessment and Plan (1) Colonic mass Current Visit: Yes Status: Acute Objective Vital Signs - Last 8 Hours Temp Pulse Resp BP Pulse Ox 02/09/19 11:48 97.1 F L 70 16 178/59 94 02/09/19 07:51 97.8 F 71 18 172/75 94 Intake and Output 02/08/19 02/09/19 02/09/19 23:59 07:59 15:59 Intake Total 820 / 2380 160 / 880 720 / 880 Output Total 2800 / 3600 800 / 3600 Balance 820 / 580 -2640 / -2720 -80 / -2720 Intake: IV Fluids 100 / 200 100 / 100 Zosyn 3.375 GM In 0.9 % Sodium 100 / 200 100 / 100 Chloride (Mini-Bag +) 100 ML @ 25 mls/hr IVPB Q8H FORMERLY [facility], [facility] Rx#: [id number] Oral 720 / 2180 60 / 780 720 / 780 Output: Urine 0 / 0 Catheter 2800 / 3600 800 / 3600 Other: Meal Dinner Lunch Percent of Meal Consumed 100% 100% Stool Size Large Stool Consistency liquid Stool Color Brown # Bowel Movements 1 Weight 71.8 kg Patient Weight 02/09/19 23:59 Weight 71.8 kg - Labs 02/09/19 06:25 02/09/19 06:25 Diabetes panel 02/09/19 Range/Units 06:25 Sodium 142 (136-145) mEq/L Potassium 3.4 L (3.5-5.1) mEq/L Chloride 110 H (98-107) mEq/L Carbon Dioxide 29 (23-29) mEq/L BUN 14 (8-23) mg/dL Creatinine 1.08 (0.60-1.20) mg/dL Glucose 129 H (70-105) mg/dL Calcium 8.1 L (8.6-10.3) mg/dL Calcium panel 02/09/19 Range/Units 06:25 Calcium 8.1 L (8.6-10.3) mg/dL Pituitary panel 02/09/19 Range/Units 06:25 Sodium 142 (136-145) mEq/L Potassium 3.4 L (3.5-5.1) mEq/L Chloride 110 H (98-107) mEq/L Carbon Dioxide 29 (23-29) mEq/L BUN 14 (8-23) mg/dL Creatinine 1.08 (0.60-1.20) mg/dL Glucose 129 H (70-105) mg/dL Calcium 8.1 L (8.6-10.3) mg/dL Adrenal panel 02/09/19 Range/Units 06:25 Sodium 142 (136-145) mEq/L Potassium 3.4 L (3.5-5.1) mEq/L Chloride 110 H (98-107) mEq/L Carbon Dioxide 29 (23-29) mEq/L BUN 14 (8-23) mg/dL Creatinine 1.08 (0.60-1.20) mg/dL Glucose 129 H (70-105) mg/dL Calcium 8.1 L (8.6-10.3) mg/dL - Attending Attestation I have personally performed a face to face evaluation on this patient. I have reviewed and agree with the care plan. History and Exam by me shows: The patient is seen and evaluated on morning rounds with the acute care surgery team. She has bowel sounds today. She remains week after surgery. We will advance her diet. She may be discharged from the hospital as soon as she develops bowel activity and starts having bowel movements.
[2019-02-09] MEDS ORDERED: *HR* OxyCODONE/APAP 5/325 TABLET PO PRN (09:56)
--- NOTE | 2019-02-09 17:28 | Discharge Summary ---
- NOTES TO OUTPATIENT PROVIDER Notes to Outpatient Provider: Patient will need followup with oncology for futther management of adenocarcinoma of colon. Lasix and potassium has been held for now, consider resume when appropriate. Patient will need CT abdomen with contrast if renal function stable to evaluate for metastatis and better liver visualization. Date of Encounter: 02/10/19 Time of Encounter: 10:28 - Discharge Diagnosis (1) Near syncope Priority: Primary Status: Acute (2) COPD exacerbation Priority: Secondary Status: Acute (3) DVT prophylaxis Priority: Secondary Status: Acute (4) Hypertension Priority: Secondary Status: Chronic Qualifiers: Hypertension type: essential hypertension Qualified Code(s): I10 - Essential (primary) hypertension (5) Anemia Priority: Primary Status: Chronic Qualifiers: Anemia type: iron deficiency Iron deficiency anemia type: chronic blood loss Qualified Code(s): D50.0 - Iron deficiency anemia secondary to blood loss (chronic) (6) History of CVA (cerebrovascular accident) Priority: Secondary Status: Chronic (7) Bladder wall thickening Priority: Secondary Status: Acute (8) Colonic mass Priority: Primary Status: Acute (9) Acute on chronic kidney failure Priority: Secondary Status: Acute Qualifiers: Acute renal failure type: unspecified Chronic kidney disease stage: stage 3 (moderate) Qualified Code(s): N17.9 - Acute kidney failure, unspecified; N18.3 - Chronic kidney disease, stage 3 (moderate) (10) Diastolic CHF Priority: Secondary Status: Acute Qualifiers: Heart failure chronicity: chronic Qualified Code(s): I50.32 - Chronic diastolic (congestive) heart failure Hospital course: Ms. Ann is a 78 year old female with PMHx of CVA, HTN, HLD, COPD who was tranferred for sob, chest pain and near syncope. Initially patient was thought to be reported to have afib but only sinus tachycardia was observed. Patient was found to be anemic and had GI evaluation with EGD/Conloscopy which showed ascending colon mass and she had elevated CEA. There was no evidence of metastasis on CT imaging. Surgery was consulted and plavix was kept on hold. Patient had Rt Hemicolectomy on 02/05/19 . She had received total 3 blood transfusion. Patient did develop DONNA after surgery likely prerenal which corrected with IVF fluids. There was some concern of findings of UTI on CT however patient otherwise did not have any other symptoms. Initially antibiotics were held. Patient was started on antibiotics by surgery due to mild white count and post-opt nature. Oncology consult was obtain for possible adenocarcinoma. Patient will need contrast CT once renal function improves per oncology to better image liver for metastasis. Patient was cleared from surgical standpoint once bowel function resumed. Patient agreed to SNF placement on discharge for rehab ad PT recommended. Currently placement pending. Surgery is okay to resume plavix and did not recommend further antibiotics. Patient will be discharged once placement available. Discharge discussed with: patient, nurse, performance improvement consultant - Time Spent with Patient Total time spent providing and/or coordinating discharge services: Time spent: Greater than 30 minutes - Discharge Medications Prescriptions: Continued Sertraline [Zoloft] 50 mg PO DAILY Ranitidine HCl [Heartburn Relief] 150 mg PO BID Clopidogrel Bisulfate [Plavix] 75 mg PO DAILY Metoprolol Tartrate 50 mg PO DAILY Atorvastatin [Lipitor] 40 mg PO DAILY Gabapentin [Neurontin] 600 mg PO TID Folic Acid 1 mg PO DAILY Pyridoxine (B-6) [Vitamin B-6] 50 mg PO DAILY Omeprazole [PriLOSEC] 40 mg PO DAILY Albuterol Sulfate [Ventolin Hfa] 2 puff PO Q4-6H PRN PRN Reason: Shortness Of Breath Fluticasone Propionate Nasal [Flonase] 50 mcg NS BID Hydralazine HCl 50 mg PO DAILY Levothyroxine Sodium [Synthroid] 200 mcg PO QAM traZODone [TraZODone] 50 mg PO HS Discontinued Potassium Chloride [K-Tab ER] 20 meq PO DAILY Furosemide [Lasix] 40 mg PO DAILY Home Medications: Albuterol Sulfate [Ventolin Hfa] 2 puff PO Q4-6H PRN 02/02/19 [History] Atorvastatin [Lipitor] 40 mg PO DAILY 02/02/19 [History] Clopidogrel Bisulfate [Plavix] 75 mg PO DAILY 02/02/19 [History] Fluticasone Propionate Nasal [Flonase] 50 mcg NS BID 02/02/19 [History] Folic Acid 1 mg PO DAILY 02/02/19 [History] Gabapentin [Neurontin] 600 mg PO TID 02/02/19 [History] Hydralazine HCl 50 mg PO DAILY 02/02/19 [History] Levothyroxine Sodium [Synthroid] 200 mcg PO QAM 02/02/19 [History] Metoprolol Tartrate 50 mg PO DAILY 02/02/19 [History] Omeprazole [PriLOSEC] 40 mg PO DAILY 02/02/19 [History] Pyridoxine (B-6) [Vitamin B-6] 50 mg PO DAILY 02/02/19 [History] Ranitidine HCl [Heartburn Relief] 150 mg PO BID 02/02/19 [History] Sertraline [Zoloft] 50 mg PO DAILY 02/02/19 [History] traZODone [TraZODone] 50 mg PO HS 02/02/19 [History] Allergies/Adverse Reactions: Allergy/AdvReac Type Severity Reaction Status Date / Time cefdinir [From Omnicef] Allergy Anxiety Verified 02/02/19 18:18 Date of admission: 02/03/19 09:56 Primary care physician: Paula Enciso CNP Consults: 02/01/19 23:42 Consult to Nurse Navigator [CONS] Routine Comment: 02/01/19 23:56 Consult to Operating Cost Clerk [CONS] Routine Reason for SW Consult: patient states that she has Home health at home but is unaware of the name of the services patient also have oxygen at home but is unaware of the company will need follow up upon D/C 02/02/19 15:02 Consult to Gastroenterology [CONS] Routine Consulting Provider: Tg Irizarry Reason for Consult: anemia Call Completed: Yes 02/04/19 14:32 Consult to Surgery [CONS] Routine Consulting Provider: Acute Care Surgery Reason for Consult: prox ascending colon mass Call Completed: Yes 02/08/19 09:49 Consult to Physical Therapy [CONS] Routine Comment: Evaluate, develop and implement POC Reason for Consult: post-op deconditioning Does patient have active BEDREST order?: No Is patient medically & hemodynamically stable?: Yes Patient assessed for mobility or mobilized this visit?: No 02/08/19 09:50 Consult to Occupational Therapy [CONS] Routine Comment: Evaluate, develop and implement POC Reason for Consult: post-op deconditioning Does patient have active BEDREST order?: No Is patient medically & hemodynamically stable?: Yes Patient assessed for mobility or mobilized this visit?: No 02/08/19 09:51 Consult to Case Management [CONS] Routine Comment: DC planning 02/08/19 10:58 Consult to Oncology Hematology [CONS] Routine Consulting Provider: Rohit Escudero Reason for Consult: colon adenocarcinoma Call Completed: Yes Discharging clinician: Essence Canales - Constitutional Vitals: Temp Pulse Resp BP Pulse Ox 97.9 F 76 14 184/67 93 02/09/19 16:24 02/09/19 16:24 02/09/19 16:24 02/09/19 16:24 02/09/19 16:24 Exam: General: In no acute distress. Respiratory exam: no accessory muscle use. Mild crackles at base b/l. Cardiovascular exam: RRR, +S1, +S2. no murmur, gallop, rubs. GI/Abdominal exam: non tendern, mildline surgical dressing in place, Non- distended, normal bowel sounds, soft. Extremities exam: trace pedal edema, pulses palpable in b/l lower extremities. no calf tenderness. mild UE swelling in hands. Neurological exam: CN II-XII intact, AO X3, no focal deficits. Skin exam: No skin rash - Patient Status Disposition: Transfer SNF Condition: Fair - Discharge Instructions Instructions: Colectomy (DC) Follow Up With: Von Donaldson [Partnered Physician] - 02/23/19 8:40 am Paula Enciso CNP [Primary Care Provider] - Rohit Escudero MD [Partnered Physician] - Additional Instructions: General Surgical Discharge Instructions 1. No pushing, pulling, or lifting greater than 15 lbs for 6 weeks. 2. You may remove your dressings and shower beginning today, but no tub baths, soaking, or swimming for 2 weeks. 3. No driving until otherwise directed by rehab or PCP. 4. Apply ice to the abdomen 20 minutes every hour that your week. Take 1000 mg acetaminophen every 6 hours. If this does not relieve discomfort, you may take the as needed oxycodone. Eat a small snack with pain medication as this will help reduce the risk of nausea. Take narcotics as directed. Do not take more narcotics then directed and do not share your narcotics with any other person. Do not drink alcohol while on narcotics. You can take the Zofran/ondansetron if needed for nausea or with a dose of narcotics to prevent nausea. 5. Take stool softeners (Colace) or a water based laxative (Miralax) while taking narcotics. You may hold for loose stools. 6. Report any fevers greater than 100.5F, increase abdominal discomfort, drainage that looks like pus, increased redness or pain at the surgical site, or any vomiting. 7. Report any pain in the calves, shortness of breath, or rapid heartbeat. 8. Follow-up in the office as directed. 9. If you were prescribed antibiotics, do not stop them without talking to your provider. Follow-up with Dr. Gruber for acute postoperative Caare. After that, you will see Dr. Rodriguez - Diet and Activity Activity: as per physical therapy - VTE Documentation of Mechanical Device: Intermittent pneumatic compression device
[2019-02-09] MEDS: Famotidine 20 MG TABLET PO SCH (22:28)
[2019-02-10] MEDS: Piperacillin/Tazobactam 3.375 GM in 0.9 % Sodium Chloride Mini Bag 100 ML IVPB SCH ×2 (02:27→09:58)
[2019-02-10] MEDS ORDERED: Ondansetron 4 MG/2 ML VIAL IVP PRN (02:42)
[2019-02-10 06:12] LABS: BUN/Creatinine Ratio 8 (6-26); Blood Urea Nitrogen 8 mg/dL (8-23); Calcium 8.6 mg/dL (8.6-10.3); Carbon Dioxide 31 mEq/L (23-29); Chloride 102 mEq/L (98-107); Glucose 147 mg/dL (70-105); Osmolality,Calculated 295 (280-300); Potassium 3.5 mEq/L (3.5-5.1); Sodium 142 mEq/L (136-145); eGFR For African Americans > 60 (> 60); eGFR For Non-African Americans 56 (> 60)
--- NOTE | 2019-02-10 08:19 | AcuteCareSurgery Progress Note ---
Date of Encounter: 02/10/19 Time of Encounter: 08:17 - Assessment and Plan (1) Colonic mass Current Visit: Yes Status: Acute s/p Right colectomy POD#5. Await full return of bowel function. On full liquids. Continue with current plan. We will continue to monitor for nausea and vomiting symptoms. Subjective Patient reports: other (Patient has had some nausea. No BM. Patient had nausea and vomiting last night.) Objective Vital Signs - Last 8 Hours Temp Pulse Resp BP Pulse Ox 02/10/19 06:55 98.1 F 74 14 141/61 92 02/10/19 06:20 152/64 02/10/19 05:36 94 02/10/19 04:41 98.7 F 76 16 184/66 94 Intake and Output 02/09/19 02/10/19 02/10/19 23:59 07:59 15:59 Intake Total 100 / 1080 0 / 0 Output Total 1500 / 5100 700 / 700 Balance -1400 / -4020 -700 / -700 Intake: IV Fluids 100 / 300 Zosyn 3.375 GM In 0.9 % Sodium 100 / 300 Chloride (Mini-Bag +) 100 ML @ 25 mls/hr IVPB Q8H [facility] Rx#: [id number] Oral 0 / 780 0 / 0 Output: Urine 0 / 0 Catheter 1500 / 5100 700 / 700 Other: Meal Dinner Percent of Meal Consumed 0% Weight 67.1 kg Patient Weight 02/10/19 23:59 Weight 67.1 kg - General physical appearance well nourished, no distress - Abdomen Abdomen: Present: bowel sounds present, soft, tender (Mild incisional pain ) - Labs 02/09/19 06:25 02/10/19 04:58 Diabetes panel 02/10/19 Range/Units 04:58 Sodium 142 (136-145) mEq/L Potassium 3.5 (3.5-5.1) mEq/L Chloride 102 (98-107) mEq/L Carbon Dioxide 31 H (23-29) mEq/L BUN 8 (8-23) mg/dL Creatinine 0.96 (0.60-1.20) mg/dL Glucose 147 H (70-105) mg/dL Calcium 8.6 (8.6-10.3) mg/dL Calcium panel 02/10/19 Range/Units 04:58 Calcium 8.6 (8.6-10.3) mg/dL Pituitary panel 02/10/19 Range/Units 04:58 Sodium 142 (136-145) mEq/L Potassium 3.5 (3.5-5.1) mEq/L Chloride 102 (98-107) mEq/L Carbon Dioxide 31 H (23-29) mEq/L BUN 8 (8-23) mg/dL Creatinine 0.96 (0.60-1.20) mg/dL Glucose 147 H (70-105) mg/dL Calcium 8.6 (8.6-10.3) mg/dL Adrenal panel 02/10/19 Range/Units 04:58 Sodium 142 (136-145) mEq/L Potassium 3.5 (3.5-5.1) mEq/L Chloride 102 (98-107) mEq/L Carbon Dioxide 31 H (23-29) mEq/L BUN 8 (8-23) mg/dL Creatinine 0.96 (0.60-1.20) mg/dL Glucose 147 H (70-105) mg/dL Calcium 8.6 (8.6-10.3) mg/dL - VTE Documentation of Mechanical Device: Intermittent pneumatic compression device Consult Discharge Plan - Plan Instructions: Colectomy (DC) Additional Instructions: General Surgical Discharge Instructions 1. No pushing, pulling, or lifting greater than 15 lbs for 6 weeks. 2. You may remove your dressings and shower beginning today, but no tub baths, soaking, or swimming for 2 weeks. 3. No driving until otherwise directed by rehab or PCP. 4. Apply ice to the abdomen 20 minutes every hour that your week. Take 1000 mg acetaminophen every 6 hours. If this does not relieve discomfort, you may take the as needed oxycodone. Eat a small snack with pain medication as this will help reduce the risk of nausea. Take narcotics as directed. Do not take more narcotics then directed and do not share your narcotics with any other person. Do not drink alcohol while on narcotics. You can take the Zofran/ondansetron if needed for nausea or with a dose of narcotics to prevent nausea. 5. Take stool softeners (Colace) or a water based laxative (Miralax) while taking narcotics. You may hold for loose stools. 6. Report any fevers greater than 100.5F, increase abdominal discomfort, drainage that looks like pus, increased redness or pain at the surgical site, or any vomiting. 7. Report any pain in the calves, shortness of breath, or rapid heartbeat. 8. Follow-up in the office as directed. 9. If you were prescribed antibiotics, do not stop them without talking to your provider. Follow-up with Dr. Gruber for acute postoperative Caare. After that, you will see Dr. Rodriguez Referrals: Rohit Escudero MD [Partnered Physician] - Von Donaldson [Partnered Physician] - 02/23/19 8:40 am Paula Enciso CNP [Primary Care Provider] -
--- NOTE | 2019-02-10 08:34 | Oncology Inp Progress Note ---
Date of Encounter: 02/10/19 Time of Encounter: 18:00 (1) Acute on chronic kidney failure Current Visit: Yes Status: Acute Assessment and plan: Chronic kidney disease stage III creatinine improved to 1.3 from 2. Further improved to 0.96 now Qualifiers: Acute renal failure type: unspecified Chronic kidney disease stage: stage 3 (moderate) Qualified Code(s): N17.9 - Acute kidney failure, unspecified; N18.3 - Chronic kidney disease, stage 3 (moderate) (2) Colonic mass Current Visit: Yes Status: Acute Assessment and plan: Ascending colon adenocarcinoma. Pathology report from 02/05/2019 showed PT 2, PN 1 with 1 of 18 lymph nodes involved. Grade 2. Lymphovascular and perineural invasion percent. Staging. PT 2, PN 1, M0 stage III a low risk. I gave her a printed copy of the pathology report NCCN guidelines reviewed. She would benefit from 3 months of Capeox. If she has complications from oxaliplatin may stop it earlier and just finished the treatment with Xeloda. CEA came down from 49 before surgery to 25 after surgery. May repeat that in 4 weeks or so. Persistent elevated CEA would be of concern. If necessary would consider CT abdomen and pelvis and CT chest with IV contrast as an outpatient (3) Anemia Current Visit: Yes Status: Chronic Assessment and plan: Iron deficiency is playing a role. B12 folate levels normal. Current hemoglobin around 10. Rest of CBC unremarkable. Qualifiers: Anemia type: iron deficiency Iron deficiency anemia type: chronic blood loss Qualified Code(s): D50.0 - Iron deficiency anemia secondary to blood loss (chronic) Oncology: Subj Interval history: Continue to recover from recent abdominal surgery. More alert and oriented. Able to tolerate liquids. Denied chest pain or shortness of breath. No headaches - Constitutional Exam: GENERAL: Alert and oriented, well appearing. Mental Status: Affect appropriate for circumstances HEENT: Sclerae anicteric. No mucositis or thrush. No other oral or pharyngeal lesions or erythema. Skin: No rashes or petechiae. No evidence of skin malignancy Lymph nodes: No cervical, supraclavicular, axillary, or inguinal adenopathy. Lungs: Clear to auscultation and percussion bilaterally. Cardiovascular: Regular rate and rhythm. No gallops, murmurs, or rubs. Abdomen: Midline incision with a dressing. Mild tenderness Extremities: No edema. No calf swelling or tenderness. No joint deformity. Neurologic: Alert, cranial nerves II-XII intact; normal gait; no focal weakness or sensory abnormalities. Oncology: Obj Data - Labs CBC & Chem 7: 02/09/19 06:25 02/10/19 04:58 Consult Discharge Plan - Plan Instructions: Colectomy (DC) Additional Instructions: General Surgical Discharge Instructions 1. No pushing, pulling, or lifting greater than 15 lbs for 6 weeks. 2. You may remove your dressings and shower beginning today, but no tub baths, soaking, or swimming for 2 weeks. 3. No driving until otherwise directed by rehab or PCP. 4. Apply ice to the abdomen 20 minutes every hour that your week. Take 1000 mg acetaminophen every 6 hours. If this does not relieve discomfort, you may take the as needed oxycodone. Eat a small snack with pain medication as this will help reduce the risk of nausea. Take narcotics as directed. Do not take more narcotics then directed and do not share your narcotics with any other person. Do not drink alcohol while on narcotics. You can take the Zofran/ondansetron if needed for nausea or with a dose of narcotics to prevent nausea. 5. Take stool softeners (Colace) or a water based laxative (Miralax) while taking narcotics. You may hold for loose stools. 6. Report any fevers greater than 100.5F, increase abdominal discomfort, drainage that looks like pus, increased redness or pain at the surgical site, or any vomiting. 7. Report any pain in the calves, shortness of breath, or rapid heartbeat. 8. Follow-up in the office as directed. 9. If you were prescribed antibiotics, do not stop them without talking to your provider. Follow-up with Dr. Gruber for acute postoperative Caare. After that, you will see Dr. Rodriguez Referrals: Rohit Escudero MD [Partnered Physician] - Von Donaldson [Partnered Physician] - 02/23/19 8:40 am Paula Enciso CNP [Primary Care Provider] - Inpatient Charges Provider: Dr. Tab Escudero Follow up - Inpatient: [id number]
[2019-02-10] MEDS: hydrALAZINE 25 MG TABLET PO SCH (08:40)
[2019-02-10] MEDS: Folic Acid 1 MG TABLET PO SCH (08:41)
[2019-02-10] MEDS: Pyridoxine (B-6) 50 MG TABLET PO SCH (08:41)
[2019-02-10] MEDS: Gabapentin 300 MG CAPSULE PO SCH ×3 (08:42→21:12)
[2019-02-10] MEDS: Pantoprazole 40 MG VIAL IVP SCH (08:43)
[2019-02-10] MEDS: Sodium Ferric Gluconat/Sucrose 125 MG in 0.9 % Sodium Chloride 100 ML IVPB SCH (09:14)
--- NOTE | 2019-02-10 09:22 | Internal Med Progress Note ---
Hospitalist Progress Note - Encounter Date of Encounter: 02/10/19 Time of Encounter: 09:22 - Subjective Interval History: Patient seen and examined this morning in the center. No acute overnight events. Patient had many episodes of vomiting overnight. She did get Percocet. Last BM yesterday without any blood. No BM today. - Exam Vitals: Temp Pulse Resp BP Pulse Ox 98.1 F 74 14 141/61 92 02/10/19 06:55 02/10/19 06:55 02/10/19 06:55 02/10/19 06:55 02/10/19 06:55 Exam: General: In no acute distress. Respiratory exam: no accessory muscle use. Mild crackles at base b/l. Cardiovascular exam: RRR, +S1, +S2. no murmur, gallop, rubs. GI/Abdominal exam: non tender, mildline surgical dressing in place, Non- distended, normal bowel sounds, soft. Extremities exam: trace pedal edema, pulses palpable in b/l lower extremities. no calf tenderness. mild UE swelling in hands. Neurological exam: CN II-XII intact, AO X3, no focal deficits. Skin exam: No skin rash - Assessment and Plan (1) Near syncope Current Visit: Yes Status: Acute (2) COPD exacerbation Current Visit: Yes Status: Acute (3) DVT prophylaxis Current Visit: Yes Status: Acute (4) Hypertension Current Visit: Yes Status: Chronic (5) Anemia Current Visit: Yes Status: Chronic (6) History of CVA (cerebrovascular accident) Current Visit: Yes Status: Chronic (7) Bladder wall thickening Current Visit: Yes Status: Acute (8) Colonic mass Current Visit: Yes Status: Acute (9) Acute on chronic kidney failure Current Visit: Yes Status: Acute (10) Diastolic CHF Current Visit: Yes Status: Acute - Summary of Assessment and Plan Summary of Assessment and Plan: Assessment Acute Colonic mass-adenocarcinoma acute on chronic blood loss anemia DONNA on cKD3 COPD exacerbation-resolved near syncope Rt hemocolectomy Chronic HTN COPD h/o CVA Plan - Surgery following. Given nausea and vomiting Surgery wanted to observe for one more day before discharging. Hold discharge for now. - s/p EGD/colonoscopy 02/04 with Malignant proximal ascending colon mass. s/p Rt hemicolectomy on 02/05/19. CEA 39.3, no evidence of distant metastasis on CT thorax/abdo/pelvis. path report with adenocarcinoma. Plan to start patient on capeox per hematology oncology. CEA to be repeated in [address] abdomen pelvis as outpatient with contrast if renal function stable. - Donna resolved. strict I/O. avoid nephrotoxins. - anemia is likely related to blood loss from colonic mass. Has had 3 PRBC in total. monitor hb for now. stop iron infusioin. - COPD exacerbation resolved. - bladder wall thickening with mild surrounding inflammatory changes and a focus of air. Urinalysis however is unimpressive and patient asymptomatic. Did start antibiotics for post opt and with leukocytosis. Will stop today. - BP stable. - has h/o CVA. will hold Plavix for now. - epcd for dvt ppx Internal Medicine: Result - Labs CBC & Chem 7: 02/09/19 06:25 02/10/19 04:58 Labs: BMP 02/10/19 04:58 Sodium 142 Potassium 3.5 Chloride 102 Carbon Dioxide 31 H BUN 8 Creatinine 0.96 Glucose 147 H Calcium 8.6 - ABG Interpretation ABG results: PT/INR, D-dimer PT 13.2 Seconds (9.4-12.1) H 02/02/19 03:21 D-Dimer 506 ng/mLFEU (0-500) H 02/02/19 03:21 - VTE Documentation of Mechanical Device: Intermittent pneumatic compression device Consult Discharge Plan - Plan Instructions: Heart Failure (DC), Atrial Fibrillation (DC), Rectal Bleeding (DC), Urinary Tract Infection in Women (DC), Pain Management After Surgery (DC), Colectomy (DC), Chronic Obstructive Pulmonary Disease (DC), Surgical Site Infections (GEN), Chronic Hypertension (DC), Anemia (GEN) Additional Instructions: General Surgical Discharge Instructions 1. No pushing, pulling, or lifting greater than 15 lbs for 6 weeks. 2. You may remove your dressings and shower beginning today, but no tub baths, soaking, or swimming for 2 weeks. 3. No driving until otherwise directed by rehab or PCP. 4. Apply ice to the abdomen 20 minutes every hour that your week. Take 1000 mg acetaminophen every 6 hours. If this does not relieve discomfort, you may take the as needed oxycodone. Eat a small snack with pain medication as this will help reduce the risk of nausea. Take narcotics as directed. Do not take more narcotics then directed and do not share your narcotics with any other person. Do not drink alcohol while on narcotics. You can take the Zofran/ondansetron if needed for nausea or with a dose of narcotics to prevent nausea. 5. Take stool softeners (Colace) or a water based laxative (Miralax) while taking narcotics. You may hold for loose stools. 6. Report any fevers greater than 100.5F, increase abdominal discomfort, drainage that looks like pus, increased redness or pain at the surgical site, or any vomiting. 7. Report any pain in the calves, shortness of breath, or rapid heartbeat. 8. Follow-up in the office as directed. 9. If you were prescribed antibiotics, do not stop them without talking to your provider. Follow-up with Dr. Gruber for acute postoperative Caare. After that, you will see Dr. Rodriguez Referrals: Rohit Escudero MD [Partnered Physician] - Von Donaldson [Partnered Physician] - 02/23/19 8:40 am Paula Enciso CNP [Primary Care Provider] - (4) Hypertension Qualifiers: Hypertension type: essential hypertension Qualified Code(s): I10 - Essential (primary) hypertension (5) Anemia Qualifiers: Anemia type: iron deficiency Iron deficiency anemia type: chronic blood loss Qualified Code(s): D50.0 - Iron deficiency anemia secondary to blood loss (chronic) (9) Acute on chronic kidney failure Qualifiers: Acute renal failure type: unspecified Chronic kidney disease stage: stage 3 (moderate) Qualified Code(s): N17.9 - Acute kidney failure, unspecified; N18.3 - Chronic kidney disease, stage 3 (moderate) (10) Diastolic CHF Qualifiers: Heart failure chronicity: chronic Qualified Code(s): I50.32 - Chronic diastolic (congestive) heart failure
[2019-02-10] MEDS ORDERED: Ondansetron ODT 4 MG TAB.RAPDIS SL PRN (14:45)
[2019-02-10] MEDS: Famotidine 20 MG TABLET PO SCH (21:11)
[2019-02-11 02:24] LABS: Basophils % 0.1 %; Eosinophils # 0.6 K/mcL (0.0-0.6); Eosinophils % 4.4 %; Hematocrit 31.9 % (35.3-44.9); Hemoglobin 10.1 g/dL (11.5-15.4); Immature Granulocytes % 0.6 % (0-4); Lymphocytes # 0.8 K/mcL (0.6-4.6); Lymphocytes % 6.3 %; Mean Corpuscular HGB Conc 31.7 g/dL (31.6-35.5); Mean Corpuscular Hemoglobin 28.7 pg (28.0-33.3); Mean Corpuscular Volume 90.6 fL (83.0-100.0); Mean Platelet Volume 10.7 fL (9.4-12.4); Monocytes % 8.1 %; Platelet Count 194 K/mcL (140-400); Red Blood Count 3.52 M/mcL (3.82-4.97); Red Cell Distribution Width 19.4 % (11.5-14.5); Segmented Neutrophils % 80.5 %; White Blood Count 12.5 K/mcL (4.3-11.1)
[2019-02-11 02:45] LABS: Potassium 3.7 mEq/L (3.5-5.1)
--- NOTE | 2019-02-11 07:49 | AcuteCareSurgery Progress Note ---
<JayceDarby Buckley - Last Filed: 02/11/19 07:44> Date of Encounter: 02/11/19 Time of Encounter: 07:44 - Assessment and Plan (1) Colonic mass Current Visit: Yes Status: Acute Date of procedure: 02/05/19 Pre-op diagnosis: Ascending colon cancer Post-op diagnosis: same Procedure: Right hemicolectomy Anesthesia: GETA Surgeon: Gianni Thomas POD #6 as above (final pathology noted moderately differentiated adenocarcinoma, one of 18 lymph nodes positive for metastatic carcinoma, proximal and distal surgical resections negative for tumor, pTNM: pT2 pN1a). s/p colonoscopy per Dr. Luica - adenocarcinoma. N/v Has resolved. She can advance diet as tolerated. She is ok from a surgical standpoint for d/c. Surgery will sign off. Subjective Patient reports: no new complaints, feels better, voiding w/o difficulty, flatus, bowel movement Narrative: Denies n/v. States she feels much better than yesterday and is looking forward to d/c. Objective Vital Signs - Last 8 Hours Temp Pulse Resp BP Pulse Ox 02/11/19 07:38 98.4 F 68 15 175/76 93 02/11/19 06:02 98 F 87 14 167/76 92 02/11/19 00:52 98.9 F 78 17 161/68 95 02/11/19 00:24 91 Intake and Output 02/10/19 02/10/19 02/11/19 15:59 23:59 07:59 Intake Total 1040 / 1380 240 / 1380 Output Total 125 / 1025 200 / 1025 200 / 200 Balance 915 / 355 40 / 355 -200 / -200 Intake: IV Fluids 160 / 260 Zosyn 3.375 GM In 0.9 % Sodium 50 / 150 Chloride (Mini-Bag +) 100 ML @ 25 mls/hr IVPB Q8H JAYESH Rx#: [id number] Ferrlecit 125 MG In 0.9 % 110 / 110 Sodium Chloride 100 ML @ 110 mls/hr IVPB 3XW JAYESH Rx#: [id number] Oral 880 / 1120 240 / 1120 Output: Urine 200 / 200 200 / 200 Catheter 125 / 825 Other: Meal Lunch Dinner Percent of Meal Consumed 25% 50% Stool Size Small Stool Consistency liquid # Voids 1 # Bowel Movements 1 - General physical appearance well nourished, no distress, no pain - ENT atraumatic, normocephalic - Abdomen Abdomen: Present: bowel sounds present, soft, tender (expected postoperative) - Incision Incision: Present: clean and dry, intact (some ecchymosis noted, likely hematoma) - Integumentary no rash - Musculoskeletal normal posture - Psychiatric oriented to time, oriented to person, oriented to place - Labs 02/11/19 01:52 02/11/19 01:52 Diabetes panel 02/11/19 Range/Units 01:52 Sodium 140 (136-145) mEq/L Potassium 3.7 (3.5-5.1) mEq/L Chloride 101 (98-107) mEq/L Carbon Dioxide 33 H (23-29) mEq/L BUN 10 (8-23) mg/dL Creatinine 1.08 (0.60-1.20) mg/dL Glucose 178 H (70-105) mg/dL Calcium 9.0 (8.6-10.3) mg/dL Calcium panel 02/11/19 Range/Units 01:52 Calcium 9.0 (8.6-10.3) mg/dL Pituitary panel 02/11/19 Range/Units 01:52 Sodium 140 (136-145) mEq/L Potassium 3.7 (3.5-5.1) mEq/L Chloride 101 (98-107) mEq/L Carbon Dioxide 33 H (23-29) mEq/L BUN 10 (8-23) mg/dL Creatinine 1.08 (0.60-1.20) mg/dL Glucose 178 H (70-105) mg/dL Calcium 9.0 (8.6-10.3) mg/dL Adrenal panel 02/11/19 Range/Units 01:52 Sodium 140 (136-145) mEq/L Potassium 3.7 (3.5-5.1) mEq/L Chloride 101 (98-107) mEq/L Carbon Dioxide 33 H (23-29) mEq/L BUN 10 (8-23) mg/dL Creatinine 1.08 (0.60-1.20) mg/dL Glucose 178 H (70-105) mg/dL Calcium 9.0 (8.6-10.3) mg/dL - VTE Documentation of Mechanical Device: Intermittent pneumatic compression device Consult Discharge Plan - Plan Instructions: Heart Failure (DC), Atrial Fibrillation (DC), Rectal Bleeding (DC), Urinary Tract Infection in Women (DC), Pain Management After Surgery (DC), Colectomy (DC), Chronic Obstructive Pulmonary Disease (DC), Surgical Site Infections (GEN), Chronic Hypertension (DC), Anemia (GEN) Additional Instructions: General Surgical Discharge Instructions 1. No pushing, pulling, or lifting greater than 15 lbs for 6 weeks. 2. You may remove your dressings and shower beginning today, but no tub baths, soaking, or swimming for 2 weeks. 3. No driving until otherwise directed by rehab or PCP. 4. Apply ice to the abdomen 20 minutes every hour that your week. Take 1000 mg acetaminophen every 6 hours. If this does not relieve discomfort, you may take the as needed oxycodone. Eat a small snack with pain medication as this will help reduce the risk of nausea. Take narcotics as directed. Do not take more narcotics then directed and do not share your narcotics with any other person. Do not drink alcohol while on narcotics. You can take the Zofran/ondansetron if needed for nausea or with a dose of narcotics to prevent nausea. 5. Take stool softeners (Colace) or a water based laxative (Miralax) while taking narcotics. You may hold for loose stools. 6. Report any fevers greater than 100.5F, increase abdominal discomfort, drainage that looks like pus, increased redness or pain at the surgical site, or any vomiting. 7. Report any pain in the calves, shortness of breath, or rapid heartbeat. 8. Follow-up in the office as directed. 9. If you were prescribed antibiotics, do not stop them without talking to your provider. Follow-up with Dr. Gruber for acute postoperative Caare. After that, you will see Dr. Rodriguez Referrals: Rohit Escudero MD [Partnered Physician] - Von Donaldson [Partnered Physician] - 02/23/19 8:40 am Paula Enciso CNP [Primary Care Provider] - <Gianni Thomas - Last Filed: 02/11/19 09:39> Date of Encounter: 02/11/19 - Assessment and Plan (1) Colonic mass Current Visit: Yes Status: Acute Objective Vital Signs - Last 8 Hours Temp Pulse Resp BP Pulse Ox 02/11/19 07:38 98.4 F 68 15 175/76 93 02/11/19 06:02 98 F 87 14 167/76 92 Intake and Output 02/10/19 02/11/19 02/11/19 23:59 07:59 15:59 Intake Total 240 / 1380 240 / 240 Output Total 200 / 1025 200 / 200 Balance 40 / 355 -200 / 40 240 / 40 Intake: Oral 240 / 1120 240 / 240 Output: Urine 200 / 200 200 / 200 Other: Meal Dinner Percent of Meal Consumed 50% Stool Size Small Stool Consistency liquid # Voids 1 # Bowel Movements 1 - Labs 02/11/19 01:52 02/11/19 01:52 Diabetes panel 02/11/19 Range/Units 01:52 Sodium 140 (136-145) mEq/L Potassium 3.7 (3.5-5.1) mEq/L Chloride 101 (98-107) mEq/L Carbon Dioxide 33 H (23-29) mEq/L BUN 10 (8-23) mg/dL Creatinine 1.08 (0.60-1.20) mg/dL Glucose 178 H (70-105) mg/dL Calcium 9.0 (8.6-10.3) mg/dL Calcium panel 02/11/19 Range/Units 01:52 Calcium 9.0 (8.6-10.3) mg/dL Pituitary panel 02/11/19 Range/Units 01:52 Sodium 140 (136-145) mEq/L Potassium 3.7 (3.5-5.1) mEq/L Chloride 101 (98-107) mEq/L Carbon Dioxide 33 H (23-29) mEq/L BUN 10 (8-23) mg/dL Creatinine 1.08 (0.60-1.20) mg/dL Glucose 178 H (70-105) mg/dL Calcium 9.0 (8.6-10.3) mg/dL Adrenal panel 02/11/19 Range/Units 01:52 Sodium 140 (136-145) mEq/L Potassium 3.7 (3.5-5.1) mEq/L Chloride 101 (98-107) mEq/L Carbon Dioxide 33 H (23-29) mEq/L BUN 10 (8-23) mg/dL Creatinine 1.08 (0.60-1.20) mg/dL Glucose 178 H (70-105) mg/dL Calcium 9.0 (8.6-10.3) mg/dL - Attending Attestation I have personally performed a face to face evaluation on this patient. I have reviewed and agree with the care plan. History and Exam by me shows: The patient is seen and evaluated on morning rounds with the acute care surgery team. She should be ready for rehabilitation today. The colon cancer was a T2 N1 a. She will require follow-up with hematology oncology during the convalescent period for evaluation of adjuvant therapy Gianni Thomas MD FACS
[2019-02-11] MEDS ORDERED: amLODIPine 5 MG TABLET PO SCH (10:46)
--- NOTE | 2019-02-11 10:51 | Internal Med Progress Note ---
Hospitalist Progress Note - Encounter Date of Encounter: 02/11/19 Time of Encounter: 10:45 - Subjective Interval History: Patient seen and examined this morning at bedside. No acute overnight events. Denies any nausea vomiting or diarrhea. Minimal abdominal discomfort. No fever or chills noted. Denies any chest pain or shortness of breath. - Exam Vitals: Temp Pulse Resp BP Pulse Ox 98.4 F 68 15 175/76 93 02/11/19 07:38 02/11/19 07:38 02/11/19 07:38 02/11/19 07:38 02/11/19 07:38 Exam: General: In no acute distress. Respiratory exam: no accessory muscle use. Mild crackles at base b/l. Cardiovascular exam: RRR, +S1, +S2. no murmur, gallop, rubs. GI/Abdominal exam: non tender, mildline surgical dressing in place, Non- distended, normal bowel sounds, soft. Extremities exam: trace pedal edema, pulses palpable in b/l lower extremities. no calf tenderness. mild UE swelling in hands. Neurological exam: CN II-XII intact, AO X3, no focal deficits. Skin exam: No skin rash - Assessment and Plan (1) Near syncope Current Visit: Yes Status: Acute (2) COPD exacerbation Current Visit: Yes Status: Acute (3) DVT prophylaxis Current Visit: Yes Status: Acute (4) Hypertension Current Visit: Yes Status: Chronic (5) Anemia Current Visit: Yes Status: Chronic (6) History of CVA (cerebrovascular accident) Current Visit: Yes Status: Chronic (7) Bladder wall thickening Current Visit: Yes Status: Acute (8) Colonic mass Current Visit: Yes Status: Acute (9) Acute on chronic kidney failure Current Visit: Yes Status: Acute (10) Diastolic CHF Current Visit: Yes Status: Acute - Summary of Assessment and Plan Summary of Assessment and Plan: Assessment Acute Colonic mass- mod differentiated adenocarcinoma acute on chronic blood loss anemia DONNA on cKD3 COPD exacerbation-resolved near syncope Rt hemocolectomy Chronic HTN COPD h/o CVA Plan - nausea and vomiting. Surgery ok for patient to be discharged. - s/p EGD/colonoscopy 02/04 with Malignant proximal ascending colon mass. s/p Rt hemicolectomy on 02/05/19. Has adenocarcinoma. Plan to start patient on capeox per hematology oncology. CEA to be repeated in [address] abdomen pelvis as outpatient with contrast if renal function stable. - Donna resolved. strict I/O. avoid nephrotoxins. Payton removed - anemia is likely related to blood loss from colonic mass. Has had 3 PRBC in total. monitor hb for now. stop iron infusion. Will discharge with iron supplement - COPD exacerbation resolved. - bladder wall thickening with mild surrounding inflammatory changes and a focus of air. Urinalysis however is unimpressive and patient asymptomatic. Did start antibiotics for post opt and with leukocytosis. Will stop today. - BP slightly elevated. Will add amlodipine on home regimen. - has h/o CVA. will hold Plavix for now. - epcd for dvt ppx Internal Medicine: Result - Labs CBC & Chem 7: 02/11/19 01:52 02/11/19 01:52 Labs: Short CBC 02/11/19 Range/Units 01:52 WBC 12.5 H (4.3-11.1) K/mcL Hgb 10.1 L (11.5-15.4) g/dL Hct 31.9 L (35.3-44.9) % Plt Count 194 (140-400) K/mcL Neutrophils # 10.0 H (1.6-8.9) K/mcL BMP 02/11/19 01:52 Sodium 140 Potassium 3.7 Chloride 101 Carbon Dioxide 33 H BUN 10 Creatinine 1.08 Glucose 178 H Calcium 9.0 - ABG Interpretation ABG results: PT/INR, D-dimer PT 13.2 Seconds (9.4-12.1) H 02/02/19 03:21 D-Dimer 506 ng/mLFEU (0-500) H 02/02/19 03:21 - VTE Documentation of Mechanical Device: Intermittent pneumatic compression device Consult Discharge Plan - Plan Instructions: Heart Failure (DC), Atrial Fibrillation (DC), Rectal Bleeding (DC), Urinary Tract Infection in Women (DC), Pain Management After Surgery (DC), Colectomy (DC), Chronic Obstructive Pulmonary Disease (DC), Surgical Site Infections (GEN), Chronic Hypertension (DC), Anemia (GEN) Additional Instructions: General Surgical Discharge Instructions 1. No pushing, pulling, or lifting greater than 15 lbs for 6 weeks. 2. You may remove your dressings and shower beginning today, but no tub baths, soaking, or swimming for 2 weeks. 3. No driving until otherwise directed by rehab or PCP. 4. Apply ice to the abdomen 20 minutes every hour that your week. Take 1000 mg acetaminophen every 6 hours. If this does not relieve discomfort, you may take the as needed oxycodone. Eat a small snack with pain medication as this will help reduce the risk of nausea. Take narcotics as directed. Do not take more narcotics then directed and do not share your narcotics with any other person. Do not drink alcohol while on narcotics. You can take the Zofran/ondansetron if needed for nausea or with a dose of narcotics to prevent nausea. 5. Take stool softeners (Colace) or a water based laxative (Miralax) while taking narcotics. You may hold for loose stools. 6. Report any fevers greater than 100.5F, increase abdominal discomfort, drainage that looks like pus, increased redness or pain at the surgical site, or any vomiting. 7. Report any pain in the calves, shortness of breath, or rapid heartbeat. 8. Follow-up in the office as directed. 9. If you were prescribed antibiotics, do not stop them without talking to your provider. Follow-up with Dr. Gruber for acute postoperative Caare. After that, you will see Dr. Rodriguez Referrals: Rohit Escudero MD [Partnered Physician] - Von Donaldson [Partnered Physician] - 02/23/19 8:40 am Paula Enciso CNP [Primary Care Provider] - (4) Hypertension Qualifiers: Hypertension type: essential hypertension Qualified Code(s): I10 - Essential (primary) hypertension (5) Anemia Qualifiers: Anemia type: iron deficiency Iron deficiency anemia type: chronic blood loss Qualified Code(s): D50.0 - Iron deficiency anemia secondary to blood loss ( chronic) (9) Acute on chronic kidney failure Qualifiers: Acute renal failure type: unspecified Chronic kidney disease stage: stage 3 (moderate) Qualified Code(s): N17.9 - Acute kidney failure, unspecified; N18.3 - Chronic kidney disease, stage 3 (moderate) (10) Diastolic CHF Qualifiers: Heart failure chronicity: chronic Qualified Code(s): I50.32 - Chronic di astolic (congestive) heart failure
[2019-02-11] MEDS: hydrALAZINE 25 MG TABLET PO SCH (11:08)
[2019-02-11] MEDS: Folic Acid 1 MG TABLET PO SCH (11:09)
[2019-02-11] MEDS: Gabapentin 300 MG CAPSULE PO SCH (11:09)
[2019-02-11] MEDS: Pyridoxine (B-6) 50 MG TABLET PO SCH (11:09)
[2019-02-11 20:00] VITALS: BP 146/98
== END 2019-02-11 19:47 | DRG 330 ==
LOC: 2NENU → SUATTDRO 23:33 → 2NENU 02-10 08:41
PROVIDERS: ADMIT Internal Medicine; ATTEND Internal Medicine
PROC: ENDOEBX (2019-02-04 13:00)

== ENCOUNTER 2019-02-15 14:25 | Observation (INO) ==
--- NOTE | 2019-02-15 20:04 | Internal Med History&Physical ---
Date of Encounter: 02/15/19 Time of Encounter: 19:35 Internal Medicine - H&P: HPI Chief complaint: GI bleed History of present illness: Ms. Ann is a 78 year old female with PMHx of CVA, HTN, HLD, COPD on 2 L home oxygen, CKD, HFpEF who was recently discharged 5 days ago for workup of anemia and findings of a colonic mass on CT status post EGD with findings of an ascending colonic adenocarcinoma status post right hemicolectomy on 02/05/19 for ascending adenocarcinoma of the colon. Patient received 3 units of blood transfusions and was discharged to SNF at [facility] with plan was for outpatient follow-up with oncology for further management of adenocarcinoma of the colon. Patient is currently on Plavix which was resumed after discharge. Patient returns today from rehabilitation after she had a large bloody bowel movement earlier this morning. Hemoglobin dropped from 9.6-7.3. Patient was received 1 unit of packed red blood cells and a CT scan of the abdomen was performed which was unremarkable. Patient reported he had a second large bloody bowel movement shortly thereafter and decision was made to transfer patient back to [facility]. Upon my assessment patient was hemodynamically stable, alert oriented 3 with no complaints of any abdominal pain at this time nor any reported earlier during the GI bleeds. Denies any nausea, vomiting, chest pain, fever, chills or diarrhea. Past Med Surg Social Fam HX - Past Medical History Medical history: COPD, CVA, hyperlipidemia, renal disease, thyroid disease Psychiatric history: no psych history - Past Surgical History Surgical History: cholecystectomy, colectomy - Social History Smoking Status: Former smoker Smokeless Tobacco Status: No Alcohol use: none Drug use: none - Family History Mother Hx Family Cancer: Yes Father Hx Family Cancer: Yes Internal Medicine - H&P: Meds Albuterol Sulfate [Ventolin Hfa] 2 puff PO Q4HR PRN 02/02/19 [History] Atorvastatin [Lipitor] 40 mg PO DAILY 02/02/19 [History] Clopidogrel Bisulfate [Plavix] 75 mg PO DAILY 02/02/19 [History] Fluticasone Propionate Nasal [Flonase] 50 mcg NS BID 02/02/19 [History] Folic Acid 1 mg PO DAILY 02/02/19 [History] Gabapentin [Neurontin] 600 mg PO TID 02/02/19 [History] Hydralazine HCl 50 mg PO BID 02/02/19 [History] Levothyroxine Sodium [Synthroid] 150 mcg PO QAM 02/02/19 [History] Metoprolol Tartrate 50 mg PO BID 02/02/19 [History] Omeprazole [PriLOSEC] 40 mg PO DAILY 02/02/19 [History] Pyridoxine (B-6) [Vitamin B-6] 50 mg PO DAILY 02/02/19 [History] Ranitidine HCl [Heartburn Relief] 150 mg PO BID 02/02/19 [History] Sertraline [Zoloft] 50 mg PO DAILY 02/02/19 [History] traZODone [TraZODone] 50 mg PO HS 02/02/19 [History] Ferrous Sulfate 325 mg PO BIDWM 30 Days #60 tablet 02/11/19 [Rx] amLODIPine [Norvasc] 5 mg PO DAILY 30 Days #30 tablet 02/11/19 [Rx] Allergy/AdvReac Type Severity Reaction Status Date / Time cefdinir [From Omnicef] Allergy Anxiety Verified 02/02/19 18:18 All Systems PM: A 10-system review of systems was performed and is negative for pertinent findings except as documented above in the HPI. - Constitutional Vitals: Temp Pulse Resp BP Pulse Ox 98.2 F 74 15 160/74 99 02/15/19 18:46 02/15/19 18:46 02/15/19 18:46 02/15/19 18:46 02/15/19 19:02 Exam: General: Alert and oriented Skin:Normal color, no rash, no lesions. HEENT:EOM, pupils equal, round and reactive. Cardiovascular:Normal S1 & S2, no rubs, murmurs or gallops. No JVD. Pulse regular. Lungs:Normal breath sounds, no wheezes or crackles. Abdomen:Soft, non-tender, no rigidity. Extremities:No deformity, no edema or tenderness, no joint swelling or clubbing. Neurological:Normal cognition and motor skills. Pulses:Carotid and radial pulses normal +2. Rest of the physical exam is non contributory Internal Med - H&P Results - Labs CBC & Chem 7: 02/16/19 04:17 02/16/19 04:17 - Assessment and Plan (1) GI bleed Current Visit: Yes Status: Acute Assessment and plan: Patient presenting with 2 episodes of painless bright red blood per rectum in the setting of recent right hemicolectomy for adenocarcinoma the ascending colon on 02/05/2019. Sigmoid diverticulosis also observed on most recent colonoscopy. Hemoglobin dropped from 9.6-7.3. Currently hemodynamically stable. Patient denies any nausea, vomiting, diarrhea or abdominal pain. Suspect likely lower GI bleed. Patient's Plavix was resumed shortly after last discharge. -Most recent hemoglobin was 7.3 earlier this morning. Patient reportedly recei giselle 1 unit of packed red blood cells. We will obtain stat CBC -Type and screen and transfuse as needed -Hold Plavix for now -Supportive care -We will keep patient NPO -Case discussed with Dr. Tung Feliz with acute care surgery who will consult on patient tonight for possible bowel prep and colonoscopy in the morning. Qualifiers: GI bleed type/associated pathology: unspecified gastrointestinal hemorrhage type Qualified Code(s): K92.2 - Gastrointestinal hemorrhage, unspecified (2) CKD (chronic kidney disease) stage 3, GFR 30-59 ml/min Current Visit: No Status: Chronic (3) Hypertension Current Visit: No Status: Chronic Assessment and plan: Blood pressure currently in the 160s systolic. -We will monitor for now and hold antihypertensives until patient consistently stable. Qualifiers: Hypertension type: essential hypertension Qualified Code(s): I10 - Essential (primary) hypertension (4) COPD (chronic obstructive pulmonary disease) Current Visit: Yes Status: Acute Assessment and plan: History of COPD on 2 L nasal cannula. Patient breathing comfortably. No evidence of acute exacerbation. -We will resume home inhalers. Qualifiers: Qualified Code(s): J44.9 - Chronic obstructive pulmonary disease, unspecified (5) DVT prophylaxis Current Visit: No Status: Acute Assessment and plan: Intermittent pneumatic compression devices - Time Spent With Patient Total time spent is greater than 50% in coordination of care (as documented) at patient's floor/unit and/or counseling patient:
[2019-02-15 21:04] LABS: Basophils % 0.4 %; Eosinophils # 0.2 K/mcL (0.0-0.6); Eosinophils % 2.4 %; Hematocrit 32.1 % (35.3-44.9); Hemoglobin 10.5 g/dL (11.5-15.4); Immature Granulocytes % 0.7 % (0-4); Lymphocytes # 0.7 K/mcL (0.6-4.6); Mean Corpuscular HGB Conc 32.7 g/dL (31.6-35.5); Mean Corpuscular Hemoglobin 30.3 pg (28.0-33.3); Mean Corpuscular Volume 92.5 fL (83.0-100.0); Mean Platelet Volume 10.8 fL (9.4-12.4); Monocytes # 0.9 K/mcL (0.0-1.3); Monocytes % 9.4 %; Neutrophils # 7.9 K/mcL (1.6-8.9); Platelet Count 136 K/mcL (140-400); Red Blood Count 3.47 M/mcL (3.82-4.97); Red Cell Distribution Width 17.2 % (11.5-14.5); Segmented Neutrophils % 80.1 %; White Blood Count 9.9 K/mcL (4.3-11.1)
[2019-02-15 21:14] LABS: Prothrombin Time 10.8 Seconds (9.4-12.1)
[2019-02-15 21:17] LABS: Activated Partial Thrombo Time 30.2 Seconds (26.0-36.0)
--- NOTE | 2019-02-15 21:19 | AcuteCare Surgery Consult Note ---
Date of Encounter: 02/15/19 Time of Encounter: 21:00 Assessment and Plan (1) Rectal bleeding Current Visit: Yes Status: Acute Recommend colonoscopy. Indications for colonoscopy are discussed in detail. Procedure, risk and benefits of colonscopy are discussed. Pt understands risks and possible complications. Possible complications include but, are not limited to bleeding, infection or perforation. Pt understands and wishes to proceed as recommended. Consent is obtained. Inpatient colonoscopy is scheduled. Prep today and scope tomorrow. (2) COPD (chronic obstructive pulmonary disease) Current Visit: Yes Status: Acute Qualifiers: Qualified Code(s): J44.9 - Chronic obstructive pulmonary disease, unspecified (3) Anemia Current Visit: No Status: Chronic Qualifiers: Anemia type: iron deficiency Iron deficiency anemia type: chronic blood loss Qualified Code(s): D50.0 - Iron deficiency anemia secondary to blood loss (chronic) (4) CKD (chronic kidney disease) stage 3, GFR 30-59 ml/min Current Visit: No Status: Chronic History of Present Illness Consult date: 02/15/19 Requesting physician: Jacqui Rebollar History of present illness: This 78 y/o patient is admitted to [facility] for rectal bleeding. She is 2 weeks pos t-op right hemicolectomy secondary to colon cancer. She has had 2 episodes of large amount of BRBPR. She denies abdominal pain, She denies nausea or vomiting. She denies fevers. No reported LOC. Pt reports ongoing weakness since initial hospitalization. Past Med Surg Social Fam HX - Past Medical History Medical history: COPD, CVA, hyperlipidemia, renal disease, thyroid disease Psychiatric history: no psych history - Past Surgical History Surgical History: cholecystectomy, colectomy - Social History Smoking Status: Former smoker Smokeless Tobacco Status: No Alcohol use: none Drug use: none - Family History Mother Hx Family Cancer: Yes Father Hx Family Cancer: Yes Medications and Allergies Albuterol Sulfate [Ventolin Hfa] 2 puff PO Q4-6H PRN 02/02/19 [History] Atorvastatin [Lipitor] 40 mg PO DAILY 02/02/19 [History] Clopidogrel Bisulfate [Plavix] 75 mg PO DAILY 02/02/19 [History] Fluticasone Propionate Nasal [Flonase] 50 mcg NS BID 02/02/19 [History] Folic Acid 1 mg PO DAILY 02/02/19 [History] Gabapentin [Neurontin] 600 mg PO TID 02/02/19 [History] Hydralazine HCl 50 mg PO DAILY 02/02/19 [History] Levothyroxine Sodium [Synthroid] 200 mcg PO QAM 02/02/19 [History] Metoprolol Tartrate 50 mg PO DAILY 02/02/19 [History] Omeprazole [PriLOSEC] 40 mg PO DAILY 02/02/19 [History] Pyridoxine (B-6) [Vitamin B-6] 50 mg PO DAILY 02/02/19 [History] Ranitidine HCl [Heartburn Relief] 150 mg PO BID 02/02/19 [History] Sertraline [Zoloft] 50 mg PO DAILY 02/02/19 [History] traZODone [TraZODone] 50 mg PO HS 02/02/19 [History] Ferrous Sulfate 325 mg PO BIDWM 30 Days #60 tablet 02/11/19 [Rx] amLODIPine [Norvasc] 5 mg PO DAILY 30 Days #30 tablet 02/11/19 [Rx] Allergy/AdvReac Type Severity Reaction Status Date / Time cefdinir [From Omnicef] Allergy Anxiety Verified 02/02/19 18:18 Review of Systems All systems PM: The remainder of the systems were reviewed and are negative - Constitutional fatigue, weakness, no anorexia, no chills, no fever(s) - EENT Nose, mouth and throat: no dizziness, no dry mouth, no dysphagia, no nasal congestion, no nasal discharge, no sinus pain, no sinus pressure, no sore throat - Cardiovascular no chest pain, no diaphoresis, no dyspnea, no edema - Respiratory no cough, no dyspnea, no wheezing - Gastrointestinal hematochezia, no abdominal pain, no bloating, no constipation, no diarrhea, no hematemesis, no nausea, no vomiting - Genitourinary Genitourinary: no dysuria, no flank pain, no urinary frequency, no urinary urgency - Musculoskeletal no back pain, no joint swelling, no limited range of motion, no neck pain - Integumentary no dry skin, no pruritus, no rash, no wounds, no jaundice - Neurological dizziness, weakness, no confusion, no focal weakness - Psychiatric no anxiety, no depression - Endocrine fatigue - Hematologic/Lymphatic no easy bleeding, no easy bruising General Surgery Exam Initial Vital Signs Temp Pulse Resp BP Pulse Ox 98.2 F 74 15 160/74 99 02/15/19 18:46 02/15/19 18:46 02/15/19 18:46 02/15/19 18:46 02/15/19 18:46 - General physical appearance no distress, no pain. negative: jaundice - Eyes PERRL, normal ocular movement. negative: icteric - ENT no congestion, dry mucosa. negative: nasal discharge - Neck no masses, trachea midline, no lymphadectomy, no venous distension - Respiratory normal respiratory effort, clear to auscultation - Cardiovascular Cardiovascular exam: Present: RRR. Absent: JVD - Abdomen Abdomen general surgery: Present: bowel sounds present, soft, non tender - Genitourinary Present: normal external genitalia - Integumentary Integumentary general surgery: Present: warm and dry - Neurologic Present: CN 2-12 grossly intact, normal coordination - Musculoskeletal Present: normal posture - Psychiatric Psychiatric general surgery: Present: A&Ox3, appropriate Exam Initial Vital Signs Temp Pulse Resp BP Pulse Ox 98.2 F 74 15 160/74 99 02/15/19 18:46 02/15/19 18:46 02/15/19 18:46 02/15/19 18:46 02/15/19 18:46 Results - Labs 02/15/19 20:50 Abnormal lab results RBC 3.47 M/mcL (3.82-4.97) L 02/15/19 20:50 Hgb 10.5 g/dL (11.5-15.4) L 02/15/19 20:50 Hct 32.1 % (35.3-44.9) L 02/15/19 20:50 RDW 17.2 % (11.5-14.5) H 02/15/19 20:50 Plt Count 136 K/mcL (140-400) L 02/15/19 20:50 All other labs normal. - Imaging CT scan - abdomen: report reviewed (no acute findings)
[2019-02-15 21:25] LABS: Albumin 3.2 g/dL (3.5-5.7); Albumin/Globulin Ratio 1.5 (1.1-2.2); Bilirubin,Total 1.7 mg/dL (0.3-1.0); Calcium 8.8 mg/dL (8.6-10.3); Globulin 2.1 g/dL (2.4-3.5); Potassium 3.6 mEq/L (3.5-5.1); Total Protein 5.3 g/dL (6.4-8.9)
[2019-02-16 05:13] LABS: Hematocrit 33.1 % (35.3-44.9); Hemoglobin 10.7 g/dL (11.5-15.4); Mean Corpuscular HGB Conc 32.3 g/dL (31.6-35.5); Mean Corpuscular Hemoglobin 29.6 pg (28.0-33.3); Mean Corpuscular Volume 91.7 fL (83.0-100.0); Platelet Count 150 K/mcL (140-400); Red Blood Count 3.61 M/mcL (3.82-4.97); Red Cell Distribution Width 17.5 % (11.5-14.5); White Blood Count 9.2 K/mcL (4.3-11.1)
[2019-02-16 05:31] LABS: BUN/Creatinine Ratio 13 (6-26); Blood Urea Nitrogen 14 mg/dL (8-23); Calcium 8.5 mg/dL (8.6-10.3); Carbon Dioxide 29 mEq/L (23-29); Chloride 100 mEq/L (98-107); Glucose 156 mg/dL (70-105); Osmolality,Calculated 294 (280-300); Potassium 3.4 mEq/L (3.5-5.1); Sodium 140 mEq/L (136-145); eGFR For African Americans > 60 (> 60); eGFR For Non-African Americans 51 (> 60)
[2019-02-16] MEDS ORDERED: Potassium Chloride 40 MEQ, Lidocaine 1% 2 ML in D5% in Water 500 ML IVPB ONE (07:39)
[2019-02-16] MEDS: Pyridoxine (B-6) 50 MG TABLET PO SCH (08:55)
[2019-02-16] MEDS ORDERED: hydrALAZINE 25 MG TABLET PO SCH (09:00)
[2019-02-16] MEDS: amLODIPine 5 MG TABLET PO SCH (09:02)
[2019-02-16] MEDS: Folic Acid 1 MG TABLET PO SCH (09:02)
[2019-02-16] MEDS: Gabapentin 300 MG CAPSULE PO SCH ×3 (09:03→21:00)
[2019-02-16] MEDS ORDERED: Acetaminophen 325 MG TABLET PO PRN (09:33)
[2019-02-16] MEDS ORDERED: Propofol 500 MG/50 ML INFUS..BTL ONE (09:59)
[2019-02-16] MEDS ORDERED: Lidocaine -MPF 2% 2 ML VIAL ONE (09:59)
--- NOTE | 2019-02-16 10:37 | Anesthesia Evaluation PreOp ---
Date of Encounter: 02/16/19 Time of Encounter: 10:34 - Past History Planned Operation: Colonoscopy Cardiac History: CHF, HTN, Hyperlipidemia, Other (mild mitral stenosis -- Mitral Valve * Moderately calcified mitral valve leaflets. * Moderate mitral annular calcification * Moderate mitral regurgitation. * Mild mitral stenosis. * Mean transmitral gradient is 7 mmHg at HR 84 bpm. and severe pulmonary HTN by echo 02/02/2019) Pulmonary History: Former smoker (quit 35 years ago), COPD (on home O2 2L continuously) PACKAGING SALES REPRESENTATIVE History: CVA (residual right sided weakness) Other Medical History: Renal (stage 3 CKD), Thyroid, GERD Anesthesia History: No Prior Anesthetic Complications, Past Anesthesia Alcohol Use: none Drug use: none Medications and Allergies Albuterol Sulfate [Ventolin Hfa] 2 puff PO Q4HR PRN 02/02/19 [History] Atorvastatin [Lipitor] 40 mg PO HS 02/02/19 [History] Fluticasone Propionate Nasal [Flonase] 50 mcg NS BID 02/02/19 [History] Gabapentin [Neurontin] 600 mg PO TID 02/02/19 [History] Omeprazole [PriLOSEC] 40 mg PO DAILY 02/02/19 [History] Pyridoxine (B-6) [Vitamin B-6] 50 mg PO DAILY 02/02/19 [History] Ranitidine HCl [Heartburn Relief] 150 mg PO BID 02/02/19 [History] Sertraline [Zoloft] 50 mg PO DAILY 02/02/19 [History] traZODone [TraZODone] 50 mg PO HS 02/02/19 [History] Levothyroxine Sodium [Euthyrox] 150 mcg PO DAILY 02/16/19 [History] Allergy/AdvReac Type Severity Reaction Status Date / Time cefdinir [From Omnicef] Allergy Anxiety Verified 02/02/19 18:18 - Meds/Allergy Pre-op Review Medications Reviewed: Yes Allergies Reviewed: Yes Beta Blockers on Current Med List: Yes If Beta Blockers taken, Date/Time (Last Dose taken): 02/16/2019 at 0855 Anesthesia Results - Labs 02/16/19 04:17 02/16/19 04:17 - Imaging EKG: report reviewed (02/02/[address] & T-WAVE ABNORMALITY) Additional studies: 02/02/2019 Echo Impressions: LVEF 60-65%. Mild concentric left ventricular hypertrophy. Severe left ventricular diastolic dysfunction. Normal right ventricular structure and function. Severely dilated left atrium. Mild aortic regurgitation. Moderate mitral regurgitation. Mild mitral stenosis. Mild-moderate tricuspid regurgitation. Severe pulmonary hypertension. 02/02/[address] IMPRESSION: Bilateral pleural effusions with associated atelectasis. An element of volume overload is suspected given the presence of smooth interlobular septal thickening. Heterogeneous thyroid. Consider nonemergent thyroid ultrasound for complete characterization. Anesthesia Exam Vital Signs/O2 Sat, Most Current Temp Pulse Resp BP Pulse Ox 97.8 F 73 15 169/60 96 02/16/19 07:08 02/16/19 07:08 02/16/19 07:08 02/16/19 07:08 02/16/19 07:08 Height: 5'2''/1.57m Weight: 135 lbs/61.3 kg NPO (# of Hours): 8 Pain Scale: 0 Pain Scale Used: Numeric (1 - 10) - HEENT Pupil (Motor): EOMI Mallampati: III Teeth: Edentulous Denture Type: Upper: Complete, Lower: Complete Oral Opening: Greater than 3 - PACKAGING SALES REPRESENTATIVE LOC: Oriented PACKAGING SALES REPRESENTATIVE Motor: Normal LUE, Normal LLE, Normal Face, Deficit RUE, Deficit RLE PACKAGING SALES REPRESENTATIVE Sensory: Normal: RUE, LUE, RLE, LLE, Face - Cardiac Rhythm: Regular Murmur: None - Pulmonary Breath Sounds: bilateral Clear Respiratory Effort: Symmetrical Anesthesia Assess/Plan ASA Score: 4 Level of consciousness: Cooperative, Oriented, Tranquil Anesthetic Plan: MAC Monitoring Plan: Standard Monitors
[2019-02-16] MEDS ORDERED: *HR* PHENYLEPHRINE 1,000 MCG/10 ML SYRINGE IVP ONE (10:46)
--- NOTE | 2019-02-16 11:07 | Internal Med Progress Note ---
Hospitalist Progress Note - Encounter Date of Encounter: 02/16/19 Time of Encounter: 09:30 - Subjective Interval History: H&P reviewed. 78-year-old female with history of recent R hemicolectomy for adenoCA, COPD, CVA, CKD, who was admitted overnight due to bright red blood per rectum. Hb at the outside facility was 7.3 which improved to 10.5 at the time of transfer with 1U pRBC. Patient otherwise denies any chest pain, shortness of breath, lightheadedness, palpitation, or abdominal pain. - Exam Vitals: Temp Pulse Resp BP Pulse Ox 97.8 F 76 16 169/60 100 02/16/19 10:59 02/16/19 10:59 02/16/19 10:59 02/16/19 10:59 02/16/19 10:59 Exam: General: Alert and oriented, not in acute distress. Cardiovascular:Normal S1 & S2, No JVD. Pulse regular. Lungs: Clear to auscultation Abdomen:Soft, non-tender, no rigidity. Extremities:No deformity or swelling Neurological:Normal cognition and motor skills. Non-focal - Assessment and Plan (1) GI bleed Current Visit: Yes Status: Acute Assessment and Plan: following recent R hemicolectomy for cecal mass that turned out to be adenoCA Hb 7.3 at the outside facility, 10.5 after 1U pRBC continue to trend H&H appreciate surgery input, for colonoscopy today (2) CKD (chronic kidney disease) stage 3, GFR 30-59 ml/min Current Visit: No Status: Chronic Assessment and Plan: Creatinine at her baseline, avoid nephrotoxins (3) Hypertension Current Visit: No Status: Chronic Assessment and Plan: Resume home meds (4) COPD (chronic obstructive pulmonary disease) Current Visit: Yes Status: Chronic Assessment and Plan: Not in exacerbation, resume home inhalers (5) History of CVA (cerebrovascular accident) Current Visit: No Status: Chronic Assessment and Plan: holding plavix, reusme statin (6) DVT prophylaxis Current Visit: No Status: Acute Assessment and Plan: EPCD - Time Spent with Patient Total time spent is greater than 50% in coordination of care (as documented) at patient's floor/unit and/or counseling patient: 25 - 35 minutes Plan of Care Discussed with: patient Internal Medicine: Result - Labs CBC & Chem 7: 02/16/19 04:17 02/16/19 04:17 Labs: Short CBC 02/15/19 02/16/19 Range/Units 20:50 04:17 WBC 9.9 9.2 (4.3-11.1) K/mcL Hgb 10.5 L 10.7 L (11.5-15.4) g/dL Hct 32.1 L 33.1 L (35.3-44.9) % Plt Count 136 L 150 (140-400) K/mcL Neutrophils # 7.9 (1.6-8.9) K/mcL BMP 02/15/19 02/16/19 20:44 04:17 Sodium 141 140 Potassium 3.6 3.4 L Chloride 98 100 Carbon Dioxide 35 H 29 BUN 15 14 Creatinine 1.10 1.04 Glucose 89 156 H Calcium 8.8 8.5 L Liver Function 02/15/19 Range/Units 20:44 Total Bilirubin 1.7 H (0.3-1.0) mg/dL AST 23 (13-39) Units/L ALT 13 (7-52) Units/L Alkaline Phosphatase 33 L (34-104) Units/L Albumin 3.2 L (3.5-5.7) g/dL - ABG Interpretation ABG results: PT/INR, D-dimer PT 10.8 Seconds (9.4-12.1) 02/15/19 20:44 Consult Discharge Plan - Plan Referrals: NONE,PCP [Primary Care Provider] - (1) GI bleed Qualifiers: GI bleed type/associated pathology: unspecified gastrointestinal hemorrhage type Qualified Code(s): K92.2 - Gastrointestinal hemorrhage, unspecified (3) Hypertension Qualifiers: Hypertension type: essential hypertension Qualified Code(s): I10 - Essential (primary) hypertension (4) COPD (chronic obstructive pulmonary disease) Qualifiers: COPD type: unspecified COPD Qualified Code(s): J44.9 - Chronic obstructive pulmonary disease, unspecified
[2019-02-16] MEDS ORDERED: Simethicone 40 MG/0.6 ML MLS IR ONE (11:26)
--- NOTE | 2019-02-16 12:10 | Acute Care Surgery Event Note ---
Date of Encounter: 02/16/19 Time of Encounter: 12:00 Pt underwent colonoscopy for rectal bleeding; two weeks post-op right hemicolectomy for colon cancer. Colonoscopy reveals a friable anastomosis that looked as if it had bled recently. Area is successfully cauterized. Pt may resume regular diet. Ensure stable H&H and no further BRBPR and DC home per primary service. Thank you for letting us participate in this case. Surgery signing off.
[2019-02-16 15:22] LABS: Hematocrit 35.4 % (35.3-44.9); Hemoglobin 11.3 g/dL (11.5-15.4)
[2019-02-16] MEDS: traZODone 50 MG TABLET PO SCH (21:00)
[2019-02-16] MEDS: Fluticasone Propionate Nasal 50 MCG/SPRAY BOTTLE NS SCH (21:02)
[2019-02-17 05:01] LABS: Hemoglobin 9.9 g/dL (11.5-15.4); Mean Corpuscular HGB Conc 31.9 g/dL (31.6-35.5); Mean Corpuscular Hemoglobin 30.4 pg (28.0-33.3); Mean Corpuscular Volume 95.1 fL (83.0-100.0); Mean Platelet Volume 10.6 fL (9.4-12.4); Platelet Count 146 K/mcL (140-400); Red Blood Count 3.26 M/mcL (3.82-4.97); Red Cell Distribution Width 17.3 % (11.5-14.5); White Blood Count 8.9 K/mcL (4.3-11.1)
[2019-02-17 05:18] LABS: BUN/Creatinine Ratio 12 (6-26); Blood Urea Nitrogen 12 mg/dL (8-23); Calcium 8.4 mg/dL (8.6-10.3); Carbon Dioxide 34 mEq/L (23-29); Chloride 102 mEq/L (98-107); Glucose 165 mg/dL (70-105); Osmolality,Calculated 295 (280-300); Potassium 3.9 mEq/L (3.5-5.1); Sodium 141 mEq/L (136-145); eGFR For African Americans > 60 (> 60); eGFR For Non-African Americans 51 (> 60)
[2019-02-17] MEDS: amLODIPine 5 MG TABLET PO SCH (09:25)
[2019-02-17] MEDS: Folic Acid 1 MG TABLET PO SCH (09:26)
[2019-02-17] MEDS: Pyridoxine (B-6) 50 MG TABLET PO SCH (09:26)
[2019-02-17] MEDS: Gabapentin 300 MG CAPSULE PO SCH ×3 (09:26→22:21)
[2019-02-17] MEDS: Fluticasone Propionate Nasal 50 MCG/SPRAY BOTTLE NS SCH ×2 (09:29→22:21)
--- NOTE | 2019-02-17 09:33 | Internal Med Progress Note ---
Hospitalist Progress Note - Encounter Date of Encounter: 02/17/19 Time of Encounter: 09:31 - Subjective Interval History: I have seen and evaluated the patient at bedside. Patient denies chest pain, shortness of breath, nausea or vomiting. reported she has not have a BM. denies abdominal pain. - Exam Vitals: Temp Pulse Resp BP Pulse Ox 98.0 F 79 18 145/62 99 02/17/19 07:35 02/17/19 07:35 02/17/19 07:35 02/17/19 07:35 02/17/19 07:35 Exam: Vitals: Reviewed General: Alert and oriented x4. In no distress Skin: Normal color, no rash, no lesions. HEENT: EOM, pupils equal, round and reactive. Cardiovascular: RRR, normal S1 & S2, no rubs, murmurs or gallops. Lungs: CTA b/l, no wheezes or crackles. Abdomen: Soft, non-tender, no rigidity. Extremities: No deformity, no edema or tenderness, no joint swelling or clubbing. Neurological: No focal neurological abnormalities. Rest of the physical exam is non contributory - Assessment and Plan (1) GI bleed Current Visit: Yes Status: Resolved Assessment and Plan: Hx of recent R hemicolectomy for cecal mass that turned out to be adeno CA Patient s/p tranfusion of 1U pRBC at an outside facility S/P colonoscopy: Granularity of the colonic anastomosis. Treated with monopolar probe. Mucosal ulceration. Treated with monopolar problem. Hemorroids found in the perianal exam. Plan - H&H with slight drop today when compared with yesterday. will continue to trend H&H for the next 24 hours. c/w ferrous sulfate. (2) CKD (chronic kidney disease) stage 3, GFR 30-59 ml/min Current Visit: No Status: Chronic Assessment and Plan: kidney function at baseline. will continue to monitor. (3) Hypertension Current Visit: No Status: Chronic Assessment and Plan: Blood pressures well controlled. Patient is on metoprolol, and amlodipine. (4) COPD (chronic obstructive pulmonary disease) Current Visit: Yes Status: Chronic Assessment and Plan: Chest pain is clear to auscultation. c/w bronchodilators every 4 hours when necessary. incentive spirometry (5) History of CVA (cerebrovascular accident) Current Visit: No Status: Chronic (6) Hyperlipidemia Current Visit: Yes Status: Chronic Assessment and Plan: On atorvastatin. (7) Hypothyroidism Current Visit: Yes Status: Chronic Assessment and Plan: Continue levothyroxine, home dose. (8) Adenocarcinoma, colon Current Visit: Yes Status: Acute Assessment and Plan: Recommended to continue outpatient follow-up with hematology oncology. DVT Prophylaxis: Intermittent pneumatic compression for DVT prophylaxis. No mechanical DVT prophylaxis due to history of recent GI bleed, requiring blood transfusion. - Summary of Assessment and Plan Summary of Assessment and Plan: Patient to remain in the hospital for the next 24 hours to continue monitoring H&H. - Time Spent with Patient Total time spent is greater than 50% in coordination of care (as documented) at patient's floor/unit and/or counseling patient: Greater than 35 minutes (40) Plan of Care Discussed with: patient (and the nurse.) Internal Medicine: Result - Labs CBC & Chem 7: 02/17/19 04:41 02/17/19 04:41 Labs: Short CBC 02/16/19 02/17/19 Range/Units 13:59 04:41 WBC 8.9 (4.3-11.1) K/mcL Hgb 11.3 L 9.9 L (11.5-15.4) g/dL Hct 35.4 31.0 L (35.3-44.9) % Plt Count 146 (140-400) K/mcL BMP 02/17/19 04:41 Sodium 141 Potassium 3.9 Chloride 102 Carbon Dioxide 34 H BUN 12 Creatinine 1.04 Glucose 165 H Calcium 8.4 L - ABG Interpretation ABG results: PT/INR, D-dimer PT 10.8 Seconds (9.4-12.1) 02/15/19 20:44 Consult Discharge Plan - Plan Referrals: NONE,PCP [Primary Care Provider] - (1) GI bleed Qualifiers: GI bleed type/associated pathology: unspecified gastrointestinal hemorrhage type Qualified Code(s): K92.2 - Gastrointestinal hemorrhage, unspecified (3) Hypertension Qualifiers: Hypertension type: essential hypertension Qualified Code(s): I10 - Essential (primary) hypertension (4) COPD (chronic obstructive pulmonary disease) Qualifiers: COPD type: unspecified COPD Qualified Code(s): J44.9 - Chronic obstructive pulmonary disease, unspecified (6) Hyperlipidemia Qualifiers: Hyperlipidemia type: unspecified Qualified Code(s): E78.5 - Hyperlipidemia, unspecified (7) Hypothyroidism Qualifiers: Hypothyroidism type: unspecified Qualified Code(s): E03.9 - Hypothyroidism, unspecified
[2019-02-17 11:32] LABS: Basophils % 0.3 %; Eosinophils # 0.3 K/mcL (0.0-0.6); Eosinophils % 2.9 %; Immature Granulocytes % 0.6 % (0-4); Lymphocytes # 0.7 K/mcL (0.6-4.6); Lymphocytes % 7.2 %; Mean Corpuscular HGB Conc 31.1 g/dL (31.6-35.5); Mean Corpuscular Hemoglobin 29.6 pg (28.0-33.3); Mean Corpuscular Volume 95.1 fL (83.0-100.0); Mean Platelet Volume 11.1 fL (9.4-12.4); Monocytes # 0.7 K/mcL (0.0-1.3); Monocytes % 7.7 %; Neutrophils # 7.4 K/mcL (1.6-8.9); Platelet Count 159 K/mcL (140-400); Red Blood Count 3.89 M/mcL (3.82-4.97); Red Cell Distribution Width 17.5 % (11.5-14.5); Segmented Neutrophils % 81.3 %; White Blood Count 9.1 K/mcL (4.3-11.1)
[2019-02-17 11:43] LABS: Hemoglobin 11.5 g/dL (11.5-15.4)
[2019-02-17 17:48] LABS: Basophils % 0.4 %; Eosinophils # 0.3 K/mcL (0.0-0.6); Eosinophils % 2.5 %; Hematocrit 32.5 % (35.3-44.9); Hemoglobin 10.6 g/dL (11.5-15.4); Immature Granulocytes % 0.5 % (0-4); Lymphocytes # 0.8 K/mcL (0.6-4.6); Lymphocytes % 7.9 %; Mean Corpuscular HGB Conc 32.6 g/dL (31.6-35.5); Mean Corpuscular Hemoglobin 30.3 pg (28.0-33.3); Mean Corpuscular Volume 92.9 fL (83.0-100.0); Mean Platelet Volume 10.8 fL (9.4-12.4); Monocytes # 0.8 K/mcL (0.0-1.3); Monocytes % 8.3 %; Neutrophils # 8.1 K/mcL (1.6-8.9); Platelet Count 157 K/mcL (140-400); Red Cell Distribution Width 17.3 % (11.5-14.5); Segmented Neutrophils % 80.4 %; White Blood Count 10.1 K/mcL (4.3-11.1)
[2019-02-17] MEDS: traZODone 50 MG TABLET PO SCH (22:21)
[2019-02-18 05:55] LABS: Basophils % 0.3 %; Eosinophils # 0.2 K/mcL (0.0-0.6); Eosinophils % 3.3 %; Hemoglobin 9.1 g/dL (11.5-15.4); Immature Granulocytes % 0.3 % (0-4); Lymphocytes # 0.7 K/mcL (0.6-4.6); Lymphocytes % 9.8 %; Mean Corpuscular HGB Conc 31.4 g/dL (31.6-35.5); Mean Corpuscular Hemoglobin 29.9 pg (28.0-33.3); Mean Corpuscular Volume 95.4 fL (83.0-100.0); Mean Platelet Volume 10.5 fL (9.4-12.4); Monocytes # 0.6 K/mcL (0.0-1.3); Monocytes % 8.3 %; Neutrophils # 5.2 K/mcL (1.6-8.9); Platelet Count 133 K/mcL (140-400); Red Blood Count 3.04 M/mcL (3.82-4.97); Red Cell Distribution Width 17.1 % (11.5-14.5); White Blood Count 6.7 K/mcL (4.3-11.1)
[2019-02-18 06:57] LABS: BUN/Creatinine Ratio 19 (6-26); Blood Urea Nitrogen 18 mg/dL (8-23); Calcium 8.7 mg/dL (8.6-10.3); Carbon Dioxide 32 mEq/L (23-29); Chloride 102 mEq/L (98-107); Glucose 146 mg/dL (70-105); Magnesium 1.9 mg/dL (1.6-2.6); Osmolality,Calculated 297 (280-300); Phosphorous 3.6 mg/dL (2.7-4.5); Sodium 141 mEq/L (136-145); eGFR For African Americans > 60 (> 60); eGFR For Non-African Americans 58 (> 60)
[2019-02-18] MEDS: Gabapentin 300 MG CAPSULE PO SCH ×3 (09:21→22:58)
[2019-02-18] MEDS: Fluticasone Propionate Nasal 50 MCG/SPRAY BOTTLE NS SCH ×2 (09:22→22:58)
[2019-02-18] MEDS: Pyridoxine (B-6) 50 MG TABLET PO SCH (09:22)
[2019-02-18] MEDS: Folic Acid 1 MG TABLET PO SCH (09:22)
[2019-02-18] MEDS: amLODIPine 5 MG TABLET PO SCH (09:22)
--- NOTE | 2019-02-18 14:56 | Internal Med Progress Note ---
Hospitalist Progress Note - Encounter Date of Encounter: 02/18/19 Time of Encounter: 14:55 - Subjective Interval History: I have seen and evaluated the patient at bedside. patient denies urinary symptoms, denies abdominal pain, nausea or vomiting. denies chest pain. - Exam Vitals: Temp Pulse Resp BP Pulse Ox 98.2 F 80 15 112/57 98 02/18/19 07:31 02/18/19 07:31 02/18/19 07:31 02/18/19 07:31 02/18/19 07:31 Exam: Vitals: Reviewed General: Alert and oriented x4. In no distress Cardiovascular: RRR, normal S1 & S2, no rubs, murmurs or gallops. Lungs: CTA b/l, no wheezes or crackles. Abdomen: Soft, non-tender, no rigidity. mid umbilical healing surgical scar Extremities: No edema. Neurological: No focal neurological abnormalities. Rest of the physical exam is non contributory - Assessment and Plan (1) Anemia Current Visit: No Status: Chronic Assessment and Plan: Hx of recent R hemicolectomy for cecal mass that turned out to be adeno CA. Pa tient s/p tranfusion of 1U pRBC at an outside facility S/P colonoscopy: Granularity of the colonic anastomosis. Treated with monopolar probe. Mucosal ulceration. Treated with monopolar problem. Hemorroids found in the perianal exam. Plan H&H stable but slightly drop. patient on PPis and sucralfate will continue to trend H&H and transfuse per procotol. ferrous sulfate 325mg/PO BID (2) GI bleed Current Visit: Yes Status: Resolved (3) CKD (chronic kidney disease) stage 3, GFR 30-59 ml/min Current Visit: No Status: Chronic Assessment and Plan: Kidney function at baseline. avoid nephrotoxic medication. (4) Hypertension Current Visit: No Status: Chronic Assessment and Plan: Blood pressures well controlled on amlodipine 5 mg by mouth daily. will monitor and adjust medications accordingly. (5) COPD (chronic obstructive pulmonary disease) Current Visit: Yes Status: Chronic Assessment and Plan: chest is clear to auscultation. c/w bronchodilators Q4RT PRN incentive spirometry (6) History of CVA (cerebrovascular accident) Current Visit: No Status: Chronic (7) Hyperlipidemia Current Visit: Yes Status: Chronic Assessment and Plan: c/w atorvastatin 40mg/PO daily. (8) Hypothyroidism Current Visit: Yes Status: Chronic Assessment and Plan: Continue levothyroxine 150 mcg/po daily. (9) Adenocarcinoma, colon Current Visit: Yes Status: Acute Assessment and Plan: Recommended to continue outpatient follow-up with hematology oncology. (10) UTI (urinary tract infection) Current Visit: No Status: Ruled-out Assessment and Plan: patient with asymptomatic Bacteriuria. Urine culture from an outside facility positive for a VRE organism. patient symptomatic, afebrile, hemodinamically stable and without changes in mental status. discussed with ID who recommended to monitor clinically, no need to treat as patient is asymptomatic. DVT Prophylaxis: Intermittent pneumatic compression for dvt prophylaxis. no chemical dvt prophylaxis due to GI bleed on presentation. - Summary of Assessment and Plan Summary of Assessment and Plan: Patient to remain in the hospital due to recent GI bleed, H7H slight drop. pen ding precert for placement. - Time Spent with Patient Total time spent is greater than 50% in coordination of care (as documented) at patient's floor/unit and/or counseling patient: Greater than 35 minutes (40) Plan of Care Discussed with: patient (and the nurse.) Internal Medicine: Result - Labs CBC & Chem 7: 02/18/19 05:33 02/18/19 05:33 Labs: Short CBC 02/17/19 02/18/19 Range/Units 17:37 05:33 WBC 10.1 6.7 (4.3-11.1) K/mcL Hgb 10.6 L 9.1 L D (11.5-15.4) g/dL Hct 32.5 L 29.0 L (35.3-44.9) % Plt Count 157 133 L (140-400) K/mcL Neutrophils # 8.1 5.2 (1.6-8.9) K/mcL BMP 02/18/19 05:33 Sodium 141 Potassium 4.0 Chloride 102 Carbon Dioxide 32 H BUN 18 Creatinine 0.94 Glucose 146 H Calcium 8.7 - ABG Interpretation ABG results: PT/INR, D-dimer PT 10.8 Seconds (9.4-12.1) 02/15/19 20:44 Consult Discharge Plan - Plan Instructions: Chronic Obstructive Pulmonary Disease (DC) Referrals: NONE,PCP [Primary Care Provider] - (1) Anemia Qualifiers: Anemia type: iron deficiency Iron deficiency anemia type: chronic blood loss Qualified Code(s): D50.0 - Iron deficiency anemia secondary to blood loss (chronic) (2) GI bleed Qualifiers: GI bleed type/associated pathology: unspecified gastrointestinal hemorrhage type Qualified Code(s): K92.2 - Gastrointestinal hemorrhage, unspecified (4) Hypertension Qualifiers: Hypertension type: essential hypertension Qualified Code(s): I10 - Essential (primary) hypertension (5) COPD (chronic obstructive pulmonary disease) Qualifiers: COPD type: unspecified COPD Qualified Code(s): J44.9 - Chronic obstructive pulmonary disease, unspecified (7) Hyperlipidemia Qualifiers: Hyperlipidemia type: unspecified Qualified Code(s): E78.5 - Hyperlipidemia, unspecified (8) Hypothyroidism Qualifiers: Hypothyroidism type: unspecified Qualified Code(s): E03.9 - Hypothyroidism, unspecified (10) UTI (urinary tract infection) Qualifiers: Urinary tract infection type: site unspecified Hematuria presence: without hematuria Qualified Code(s): N39.0 - Urinary tract infection, site not specified
[2019-02-18] MEDS: traZODone 50 MG TABLET PO SCH (22:58)
[2019-02-19 06:05] LABS: Basophils % 0.5 %; Eosinophils # 0.3 K/mcL (0.0-0.6); Eosinophils % 4.1 %; Hematocrit 29.8 % (35.3-44.9); Hemoglobin 9.2 g/dL (11.5-15.4); Immature Granulocytes % 0.6 % (0-4); Lymphocytes # 0.6 K/mcL (0.6-4.6); Mean Corpuscular HGB Conc 30.9 g/dL (31.6-35.5); Mean Corpuscular Hemoglobin 29.8 pg (28.0-33.3); Mean Corpuscular Volume 96.4 fL (83.0-100.0); Mean Platelet Volume 10.5 fL (9.4-12.4); Monocytes # 0.5 K/mcL (0.0-1.3); Monocytes % 7.8 %; Neutrophils # 4.8 K/mcL (1.6-8.9); Platelet Count 149 K/mcL (140-400); Red Blood Count 3.09 M/mcL (3.82-4.97); White Blood Count 6.3 K/mcL (4.3-11.1)
[2019-02-19] MEDS: Folic Acid 1 MG TABLET PO SCH (11:48)
[2019-02-19] MEDS: Pyridoxine (B-6) 50 MG TABLET PO SCH (11:48)
[2019-02-19] MEDS: Gabapentin 300 MG CAPSULE PO SCH ×3 (11:48→22:36)
[2019-02-19] MEDS: amLODIPine 5 MG TABLET PO SCH (11:48)
[2019-02-19] MEDS: Fluticasone Propionate Nasal 50 MCG/SPRAY BOTTLE NS SCH ×2 (11:49→22:36)
--- NOTE | 2019-02-19 11:52 | Internal Med Progress Note ---
Hospitalist Progress Note - Encounter Date of Encounter: 02/19/19 Time of Encounter: 11:49 - Subjective Interval History: I have seen and evaluated the patient at beside. Patient reported feeling well today, but reported she has not had a BM while she's been in the hospital. denies chest pain, nausea or vomiting. - Exam Vitals: Temp Pulse Resp BP Pulse Ox 98.5 F 80 14 129/61 99 02/19/19 07:11 02/19/19 07:11 02/19/19 07:11 02/19/19 07:11 02/19/19 07:11 Exam: Vitals: Reviewed General: Alert and oriented x4. In no distress Cardiovascular: RRR, normal S1 & S2, no rubs, murmurs or gallops. Lungs: CTA b/l, no wheezes or crackles. Abdomen: Soft, non-tender, no rigidity. mid umbilical healing surgical scar. hypoactive bowel sounds in all 4 quadrants. Extremities: No edema. Neurological: No focal neurological abnormalities. Rest of the physical exam is non contributory - Assessment and Plan (1) Anemia Current Visit: No Status: Chronic Assessment and Plan: Hx of recent R hemicolectomy for cecal mass that turned out to be adeno CA. Patient s/p tranfusion of 1U pRBC at an outside facility S/P colonoscopy: Granularity of the colonic anastomosis. Treated with monopolar probe. Mucosal ulceration. Treated with monopolar problem. Hemorroids found in the perianal exam. Plan - H&H stable for the past 24-48 hours, no active site of bleeding. - c/w PPis and sucralfate - on ferrous sulfate 325mg/PO BID - will trend H7h and transfuse per protocol. (2) CKD (chronic kidney disease) stage 3, GFR 30-59 ml/min Current Visit: No Status: Chronic Assessment and Plan: Kidney function at baseline. continue to avoid nephrotoxic medication. (3) Hypertension Current Visit: No Status: Chronic Assessment and Plan: Blood pressures well controlled. Plan - c/w amlodipine 5 mg by mouth daily. (4) COPD (chronic obstructive pulmonary disease) Current Visit: Yes Status: Chronic Assessment and Plan: chest is clear to auscultation. on bronchodilators Q4RT PRN. incentive spirometry (5) History of CVA (cerebrovascular accident) Current Visit: No Status: Chronic Assessment and Plan: on atorvastatin. (6) Hyperlipidemia Current Visit: Yes Status: Chronic Assessment and Plan: On atorvastatin 40mg/PO daily. (7) Hypothyroidism Current Visit: Yes Status: Chronic Assessment and Plan: On levothyroxine 150 mcg/po daily. (8) Adenocarcinoma, colon Current Visit: Yes Status: Chronic Assessment and Plan: Recommended to continue outpatient follow-up with hematology oncology. (9) UTI (urinary tract infection) Current Visit: No Status: Ruled-out Assessment and Plan: patient with asymptomatic Bacteriuria. Urine culture from an outside facility positive for a VRE organism. patient symptomatic, afebrile, hemodinamically stable and without changes in mental status. discussed with ID who recommended to monitor clinically, no need to treat as patient is asymptomatic. (10) GI bleed Current Visit: Yes Status: Resolved DVT Prophylaxis: intermittent pneumatic compression for dvt prophylaxis. - Summary of Assessment and Plan Summary of Assessment and Plan: Patient to remain in the hospital pending precert for placement. - Time Spent with Patient Total time spent is greater than 50% in coordination of care (as documented) at patient's floor/unit and/or counseling patient: Greater than 35 minutes (40) Plan of Care Discussed with: patient (and the nurse.) Internal Medicine: Result - Labs CBC & Chem 7: 02/19/19 05:28 02/18/19 05:33 Labs: Short CBC 02/19/19 Range/Units 05:28 WBC 6.3 (4.3-11.1) K/mcL Hgb 9.2 L (11.5-15.4) g/dL Hct 29.8 L (35.3-44.9) % Plt Count 149 (140-400) K/mcL Neutrophils # 4.8 (1.6-8.9) K/mcL - ABG Interpretation ABG results: PT/INR, D-dimer PT 10.8 Seconds (9.4-12.1) 02/15/19 20:44 Consult Discharge Plan - Plan Instructions: Chronic Obstructive Pulmonary Disease (DC) Additional Instructions: please make follow up with cancer center upon discharge Referrals: Rohit Escudero MD [Partnered Physician] - (1) Anemia Qualifiers: Anemia type: iron deficiency Iron deficiency anemia type: chronic blood loss Qualified Code(s): D50.0 - Iron deficiency anemia secondary to blood loss (chronic) (3) Hypertension Qualifiers: Hypertension type: essential hypertension Qualified Code(s): I10 - Essential (primary) hypertension (4) COPD (chronic obstructive pulmonary disease) Qualifiers: COPD type: unspecified COPD Qualified Code(s): J44.9 - Chronic obstructive pulmonary disease, unspecified (6) Hyperlipidemia Qualifiers: Hyperlipidemia type: unspecified Qualified Code(s): E78.5 - Hyperlipidemia, unspecified (7) Hypothyroidism Qualifiers: Hypothyroidism type: unspecified Qualified Code(s): E03.9 - Hypothyroidism, unspecified (9) UTI (urinary tract infection) Qualifiers: Urinary tract infection type: site unspecified Hematuria presence: without hematuria Qualified Code(s): N39.0 - Urinary tract infection, site not specified (10) GI bleed Qualifiers: GI bleed type/associated pathology: unspecified gastrointestinal hemorrhage type Qualified Code(s): K92.2 - Gastrointestinal hemorrhage, unspecified
[2019-02-19] MEDS: traZODone 50 MG TABLET PO SCH (22:36)
[2019-02-20] MEDS: Pyridoxine (B-6) 50 MG TABLET PO SCH (08:49)
[2019-02-20] MEDS: amLODIPine 5 MG TABLET PO SCH (08:49)
[2019-02-20] MEDS: Folic Acid 1 MG TABLET PO SCH (08:49)
[2019-02-20] MEDS: Gabapentin 300 MG CAPSULE PO SCH ×3 (08:50→20:39)
--- NOTE | 2019-02-20 09:47 | Discharge Summary ---
Date of Encounter: 02/20/19 Time of Encounter: 09:43 - Discharge Diagnosis (1) Anemia Priority: Primary Status: Chronic Qualifiers: Anemia type: iron deficiency Iron deficiency anemia type: chronic blood loss Qualified Code(s): D50.0 - Iron deficiency anemia secondary to blood loss (chronic) (2) CKD (chronic kidney disease) stage 3, GFR 30-59 ml/min Priority: Secondary Status: Chronic (3) Hypertension Priority: Secondary Status: Chronic Qualifiers: Hypertension type: essential hypertension Qualified Code(s): I10 - Essential (primary) hypertension (4) COPD (chronic obstructive pulmonary disease) Priority: Secondary Status: Chronic Qualifiers: COPD type: unspecified COPD Qualified Code(s): J44.9 - Chronic obstructive pulmonary disease, unspecified (5) History of CVA (cerebrovascular accident) Priority: Secondary Status: Chronic (6) Hyperlipidemia Priority: Secondary Status: Chronic Qualifiers: Hyperlipidemia type: unspecified Qualified Code(s): E78.5 - Hyperlipidemia, unspecified (7) Hypothyroidism Priority: Secondary Status: Chronic Qualifiers: Hypothyroidism type: unspecified Qualified Code(s): E03.9 - Hypothyroidism, unspecified (8) Adenocarcinoma, colon Priority: Secondary Status: Chronic (9) UTI (urinary tract infection) Priority: Secondary Status: Ruled-out Qualifiers: Urinary tract infection type: site unspecified Hematuria presence: without hematuria Qualified Code(s): N39.0 - Urinary tract infection, site not specified (10) GI bleed Priority: Secondary Status: Resolved Qualifiers: GI bleed type/associated pathology: unspecified gastrointestinal hemorrhage type Qualified Code(s): K92.2 - Gastrointestinal hemorrhage, unspecified Hospital course: Ms. Ann is a 78 year old female PMHx of CVA, HTN, HLD, COPD on 2 L home oxygen, CKD, HFpEF who was recently discharged 5 days ago for workup of anemia and findings of a colonic mass on CT status post EGD with findings of an ascending colonic adenocarcinoma status post right hemicolectomy on 02/05/19 for ascending adenocarcinoma of the colon. Patient received 3 units of blood transfusions and was discharged to [facility] at [facility] with plan was for outpatient follow-up with oncology for further management of adenocarcinoma of the colon. Patient was admitted to the hospital from a rehabilitation facility following a large bloody bowel movement. Patient admitted to the hospital due to GI bleed. Hemoglobin dropped from 9.6-7.3. Patient was received 1 unit of packed red blood cells and a CT scan of the abdomen was performed which was unremarkable. Surgery consulted and patient underwent colonoscopy: Mucosal ulceration, treated with monopolar probe. Hemoglobin right spot on the perianal exam. H&H has remained stable. Patient is clinically stable to be discharged to [facility]. Recommended to follow-up with oncology as an outpatient. A urine culture was faxed from an outside facility which grew VRE. Patient asymptomatic. Discussed with ID who recommended against treating the patient for asymptomatic bacteriuria. - Time Spent with Patient Total time spent providing and/or coordinating discharge services: Time spent: Greater than 30 minutes (35) - Discharge Medications Prescriptions: New Ferrous Sulfate 325 mg PO BIDWM 30 Days #60 tablet Continued Sertraline [Zoloft] 50 mg PO DAILY Ranitidine HCl [Heartburn Relief] 150 mg PO BID Atorvastatin [Lipitor] 40 mg PO HS Gabapentin [Neurontin] 600 mg PO TID Pyridoxine (B-6) [Vitamin B-6] 50 mg PO DAILY Omeprazole [PriLOSEC] 40 mg PO DAILY Albuterol Sulfate [Ventolin Hfa] 2 puff PO Q4HR PRN PRN Reason: shortness of breath Fluticasone Propionate Nasal [Flonase] 50 mcg NS BID traZODone [TraZODone] 50 mg PO HS Levothyroxine Sodium [Euthyrox] 150 mcg PO DAILY Home Medications: Albuterol Sulfate [Ventolin Hfa] 2 puff PO Q4HR PRN 02/02/19 [History] Atorvastatin [Lipitor] 40 mg PO HS 02/02/19 [History] Fluticasone Propionate Nasal [Flonase] 50 mcg NS BID 02/02/19 [History] Gabapentin [Neurontin] 600 mg PO TID 02/02/19 [History] Omeprazole [PriLOSEC] 40 mg PO DAILY 02/02/19 [History] Pyridoxine (B-6) [Vitamin B-6] 50 mg PO DAILY 02/02/19 [History] Ranitidine HCl [Heartburn Relief] 150 mg PO BID 02/02/19 [History] Sertraline [Zoloft] 50 mg PO DAILY 02/02/19 [History] traZODone [TraZODone] 50 mg PO HS 02/02/19 [History] Levothyroxine Sodium [Euthyrox] 150 mcg PO DAILY 02/16/19 [History] Ferrous Sulfate 325 mg PO BIDWM 30 Days #60 tablet 02/20/19 [Rx] Allergies/Adverse Reactions: Allergy/AdvReac Type Severity Reaction Status Date / Time cefdinir [From Omnicef] Allergy Anxiety Verified 02/02/19 18:18 Date of admission: 02/15/19 18:33 Primary care physician: PCP NONE Consults: 02/15/19 19:33 Consult to Nutrition [CONS] Routine Comment: Consulting Provider: NUTRITION Reason for Dietary Consult: MST Score Consult to Aml Analyst [CONS] Routine Reason for SW Consult: Family wishes to get time lock expert nursing and Aid assitance at home. 02/16/19 15:15 Consult to Occupational Therapy [CONS] Routine Comment: Evaluate, develop and implement POC Reason for Consult: will need for insurance auth to return to [facility] Does patient have active BEDREST order?: No Is patient medically & hemodynamically stable?: Yes Consult to Physical Therapy [CONS] Routine Comment: Evaluate, develop and implement POC Reason for Consult: Will need for insurance auth to return to [facility] Does patient have active BEDREST order?: No Is patient medically & hemodynamically stable?: Yes Patient assessed for mobility or mobilized this visit?: No - Constitutional Vitals: Temp Pulse Resp BP Pulse Ox 97.9 F 85 16 120/50 97 02/20/19 07:05 02/20/19 07:05 02/20/19 07:05 02/20/19 07:05 02/20/19 07:05 Exam: Vitals: Reviewed General: Alert and oriented x4. In no distress Cardiovascular: RRR, normal S1 & S2, no rubs, murmurs or gallops. Lungs: CTA b/l, no wheezes or crackles. Abdomen: Soft, non-tender, no rigidity. mid umbilical healing surgical scar. hypoactive bowel sounds in all 4 quadrants. Extremities: No edema. Neurological: No focal neurological abnormalities. Rest of the physical exam is non contributory - Patient Status Disposition: Transfer SNF Condition: Fair Functional capacity at discharge: independent ambulation Overall status at discharge: patient is progressing back to baseline - Discharge Instructions Instructions: Chronic Obstructive Pulmonary Disease (DC) Follow Up With: Rohit Escudero MD [Partnered Physician] - Additional Instructions: please make follow up with cancer center upon discharge - Diet and Activity Activity: as per physical therapy Diet: low salt diet
--- NOTE | 2019-02-20 09:53 | Physician Discharge Referral ---
ExtendedCare Referral Info Transfer To: [facility] - Diagnosis (1) Anemia Priority: Primary Status: Chronic (2) CKD (chronic kidney disease) stage 3, GFR 30-59 ml/min Priority: Secondary Status: Chronic (3) Hypertension Priority: Secondary Status: Chronic (4) COPD (chronic obstructive pulmonary disease) Priority: Secondary Status: Chronic (5) History of CVA (cerebrovascular accident) Priority: Secondary Status: Chronic (6) Hyperlipidemia Priority: Secondary Status: Chronic (7) Hypothyroidism Priority: Secondary Status: Chronic (8) Adenocarcinoma, colon Priority: Secondary Status: Chronic (9) UTI (urinary tract infection) Priority: Secondary Status: Ruled-out (10) GI bleed Priority: Secondary Status: Resolved Prognosis: Fair Aware of Diagnosis: Patient Aware of Prognosis: Patient - Transfer Medications Prescriptions: Ferrous Sulfate 325 mg PO BIDWM 30 Days #60 tablet Transmission Status: Pending to [address] Medications: Albuterol Sulfate [Ventolin Hfa] 2 puff PO Q4HR PRN 02/02/19 [History] Atorvastatin [Lipitor] 40 mg PO HS 02/02/19 [History] Fluticasone Propionate Nasal [Flonase] 50 mcg NS BID 02/02/19 [History] Gabapentin [Neurontin] 600 mg PO TID 02/02/19 [History] Omeprazole [PriLOSEC] 40 mg PO DAILY 02/02/19 [History] Pyridoxine (B-6) [Vitamin B-6] 50 mg PO DAILY 02/02/19 [History] Ranitidine HCl [Heartburn Relief] 150 mg PO BID 02/02/19 [History] Sertraline [Zoloft] 50 mg PO DAILY 02/02/19 [History] traZODone [TraZODone] 50 mg PO HS 02/02/19 [History] Levothyroxine Sodium [Euthyrox] 150 mcg PO DAILY 02/16/19 [History] Ferrous Sulfate 325 mg PO BIDWM 30 Days #60 tablet 02/20/19 [Rx] Allergies/Adverse Reactions: Allergy/AdvReac Type Severity Reaction Status Date / Time cefdinir [From Omnicef] Allergy Anxiety Verified 02/02/19 18:18 - Respiratory Orders Oxygen / L per min (2 litters) Smoking Cessation: Smoking cessation has been advised. For more information, call the [place] Tobacco Quit Line at 0-386-CKNX-NOW. - Advance Directives Code Status: Full Code - Mobility Orders Ambulate - Rehabiliation Orders Rehab Potential: Fair Rehab Orders: Evaluation for Physical Therapy, Evaluation for Occupational Therapy - Diet Orders Regular CERTIFICATION: I certify that the transfer of the above named patient to an Extended Care Facility is necessary for the continuing treatment of the diagnosis listed. The above information is true and accurate reflection of patient's current condition. Confidential - Redisclosure prohibited without a patient's written consent.
[2019-02-20] MEDS: Fluticasone Propionate Nasal 50 MCG/SPRAY BOTTLE NS SCH ×2 (12:11→20:40)
[2019-02-20] MEDS: traZODone 50 MG TABLET PO SCH (20:39)
[2019-02-21] MEDS: Fluticasone Propionate Nasal 50 MCG/SPRAY BOTTLE NS SCH ×2 (09:11→21:52)
[2019-02-21] MEDS: amLODIPine 5 MG TABLET PO SCH (09:12)
[2019-02-21] MEDS: Pyridoxine (B-6) 50 MG TABLET PO SCH (09:12)
[2019-02-21] MEDS: Folic Acid 1 MG TABLET PO SCH (09:12)
[2019-02-21] MEDS: Gabapentin 300 MG CAPSULE PO SCH ×3 (09:13→20:24)
--- NOTE | 2019-02-21 12:59 | Event Note ---
Date of Encounter: 02/21/19 Time of Encounter: 12:54 I have seen and evaluated the patient at bedside. patient reported doing well, has moved her bowel, not bloody stool reported. denies chest pain, nausea or vomiting. Physical exam: Vitals: Reviewed Vitals: Reviewed General: Alert and oriented x4. In no distress Cardiovascular: RRR, normal S1 & S2, no rubs, murmurs or gallops. Lungs: CTA b/l, no wheezes or crackles. Abdomen: Soft, non-tender, no rigidity. mid umbilical healing surgical scar. NABS in all 4 quadrants. Extremities: No edema. Neurological: No focal neurological abnormalities. Rest of the physical exam is non contributory Assessment: 1. GI bleed (resolved) 2. Anemia 3. COPD 4. Hypothyroidism 5. HLD 6. Hx CVA 7. HTN 8. Adenocarcinoma of colon 9. VTE prophylaxis Plan continue current management. patient pending placement to ECF.
[2019-02-21] MEDS: traZODone 50 MG TABLET PO SCH (20:24)
[2019-02-22 06:56] VITALS: BP 132/60
[2019-02-22] MEDS: Gabapentin 300 MG CAPSULE PO SCH (09:27)
[2019-02-22] MEDS: Folic Acid 1 MG TABLET PO SCH (09:28)
[2019-02-22] MEDS: Pyridoxine (B-6) 50 MG TABLET PO SCH (09:28)
[2019-02-22] MEDS: amLODIPine 5 MG TABLET PO SCH (09:28)
[2019-02-22] MEDS: Fluticasone Propionate Nasal 50 MCG/SPRAY BOTTLE NS SCH (09:30)
--- NOTE | 2019-02-22 12:09 | Internal Med Progress Note ---
Hospitalist Progress Note - Encounter Date of Encounter: 02/22/19 Time of Encounter: 12:05 - Subjective Interval History: I have seen and evaluated the patient at bedside. patient reported feeling well. denies chest pain, nausea, vomiting or abdominal pain. - Exam Vitals: Temp Pulse Resp BP Pulse Ox 97.8 F 93 18 132/60 98 02/22/19 06:53 02/22/19 06:53 02/22/19 06:53 02/22/19 06:53 02/22/19 06:53 Exam: Vitals: Reviewed General: Alert and oriented x4. In no distress Cardiovascular: RRR, normal S1 & S2, no rubs, murmurs or gallops. Lungs: CTA b/l, no wheezes or crackles. Abdomen: Soft, non-tender, no rigidity. mid umbilical healing surgical scar. NABS in all 4 quadrants. Extremities: No edema. Neurological: No focal neurological abnormalities. Rest of the physical exam is non contributory - Assessment and Plan (1) Anemia Current Visit: No Status: Chronic Assessment and Plan: no active signs of bleeding. H&H stable. will c/w PPIs and antiemetics. (2) CKD (chronic kidney disease) stage 3, GFR 30-59 ml/min Current Visit: No Status: Chronic Assessment and Plan: Kidney function at baseline. continue to avoid nephrotoxic medications. (3) Hypertension Current Visit: No Status: Chronic Assessment and Plan: Blood pressures well controlled on amlodipine 5 mg by mouth daily, and metoprolol 50 mg by mouth daily. (4) COPD (chronic obstructive pulmonary disease) Current Visit: Yes Status: Chronic Assessment and Plan: Chest clear to auscultation. Continue oxygen by nasal cannula, titrate for O2 sat duration more than 92%. On bronchodilators. (5) History of CVA (cerebrovascular accident) Current Visit: No Status: Chronic Assessment and Plan: Patient not on antiplatelet due to history of recent GI bleed. (6) Hyperlipidemia Current Visit: Yes Status: Chronic Assessment and Plan: Atorvastatin 40 mg by mouth daily. (7) Hypothyroidism Current Visit: Yes Status: Chronic Assessment and Plan: On levothyroxine 150 mcg/PO daily. (8) Adenocarcinoma, colon Current Visit: Yes Status: Chronic (9) UTI (urinary tract infection) Current Visit: No Status: Ruled-out (10) GI bleed Current Visit: Yes Status: Resolved DVT Prophylaxis: intermittent pneumatic compression for dvt prophylaxis. - Summary of Assessment and Plan Summary of Assessment and Plan: Patient discharged, pending placement to ECF. - Time Spent with Patient Total time spent is greater than 50% in coordination of care (as documented) at patient's floor/unit and/or counseling patient: Greater than 35 minutes (40) Plan of Care Discussed with: patient (and the nurse.) Internal Medicine: Result - Labs CBC & Chem 7: 02/19/19 05:28 02/18/19 05:33 - ABG Interpretation ABG results: PT/INR, D-dimer PT 10.8 Seconds (9.4-12.1) 02/15/19 20:44 - Impressions Impressions [facility]UB X-Ray 02/19/19 15:31 IMPRESSION: Surgical sandi from recent surgery. Small amount of stool in the colon. No gross obstruction. D/ / 02/19/2019 15:49:23 Jessica Bishop MD / Philomena Schwab Interpreting Provider: Jessica Bishop MD Consult Discharge Plan - Plan Instructions: Chronic Obstructive Pulmonary Disease (DC) Additional Instructions: please make follow up with cancer center upon discharge Referrals: Rohit Escudero MD [Partnered Physician] - Prescriptions: Ferrous Sulfate 325 mg PO BIDWM 30 Days #60 tablet Transmission Status: Received by [facility] (1) Anemia Qualifiers: Anemia type: iron deficiency Iron deficiency anemia type: chronic blood loss Qualified Code(s): D50.0 - Iron deficiency anemia secondary to blood loss (chronic) (3) Hypertension Qualifiers: Hypertension type: essential hypertension Qualified Code(s): I10 - Essential (primary) hypertension (4) COPD (chronic obstructive pulmonary disease) Qualifiers: COPD type: unspecified COPD Qualified Code(s): J44.9 - Chronic obstructive pulmonary disease, unspecified (6) Hyperlipidemia Qualifiers: Hyperlipidemia type: unspecified Qualified Code(s): E78.5 - Hyperlipidemia, unspecified (7) Hypothyroidism Qualifiers: Hypothyroidism type: unspecified Qualified Code(s): E03.9 - Hypothyroidism, unspecified (9) UTI (urinary tract infection) Qualifiers: Urinary tract infection type: site unspecified Hematuria presence: without hematuria Qualified Code(s): N39.0 - Urinary tract infection, site not specified (10) GI bleed Qualifiers: GI bleed type/associated pathology: unspecified gastrointestinal hemorrhage type Qualified Code(s): K92.2 - Gastrointestinal hemorrhage, unspecified
[2019-02-22 12:18] LABS: Basophils % 0.6 %; Eosinophils # 0.3 K/mcL (0.0-0.6); Eosinophils % 3.8 %; Hematocrit 33.9 % (35.3-44.9); Hemoglobin 10.4 g/dL (11.5-15.4); Immature Granulocytes % 0.3 % (0-4); Lymphocytes # 0.6 K/mcL (0.6-4.6); Lymphocytes % 9.2 %; Mean Corpuscular HGB Conc 30.7 g/dL (31.6-35.5); Mean Corpuscular Hemoglobin 30.2 pg (28.0-33.3); Mean Corpuscular Volume 98.5 fL (83.0-100.0); Mean Platelet Volume 10.7 fL (9.4-12.4); Monocytes # 0.5 K/mcL (0.0-1.3); Monocytes % 7.2 %; Neutrophils # 5.3 K/mcL (1.6-8.9); Platelet Count 187 K/mcL (140-400); Red Blood Count 3.44 M/mcL (3.82-4.97); Red Cell Distribution Width 15.9 % (11.5-14.5); Segmented Neutrophils % 78.9 %; White Blood Count 6.7 K/mcL (4.3-11.1)
== END 2019-02-22 17:21 ==
LOC: 2NENU → SUATTDRO 18:33
PROVIDERS: ADMIT Internal Medicine; ATTEND Internal Medicine
PROC: ENDOCBX (2019-02-16 19:15)

== ENCOUNTER 2019-03-20 14:43 | Inpatient (IN) ==
[2019-03-20] MEDS ORDERED: *HR* HYDROcodone/Acet 5/325 mg TABLET PO PRN (17:24)
[2019-03-20] MEDS ORDERED: Naloxone 0.4 MG/ML INJ IVP PRN (17:24)
[2019-03-20] MEDS: Amiodarone Premix 360 MG/200 ML BAG IVC SCH (17:25)
[2019-03-20] MEDS ORDERED: Levalbuterol Neb 0.63 MG/3 ML IH PRN (17:38)
[2019-03-20 18:06] LABS: Basophils # 0.1 K/mcL (0.0-0.2); Basophils % 0.7 %; Eosinophils # 0.3 K/mcL (0.0-0.6); Hematocrit 37.4 % (35.3-44.9); Hemoglobin 12.1 g/dL (11.5-15.4); Immature Granulocytes % 0.1 % (0-4); Lymphocytes % 14.2 %; Mean Corpuscular HGB Conc 32.4 g/dL (31.6-35.5); Mean Corpuscular Hemoglobin 30.5 pg (28.0-33.3); Mean Corpuscular Volume 94.2 fL (83.0-100.0); Mean Platelet Volume 10.5 fL (9.4-12.4); Monocytes # 0.7 K/mcL (0.0-1.3); Monocytes % 9.4 %; Platelet Count 185 K/mcL (140-400); Red Blood Count 3.97 M/mcL (3.82-4.97); Red Cell Distribution Width 15.5 % (11.5-14.5); Segmented Neutrophils % 71.6 %
[2019-03-20 18:19] LABS: INR 1.1; Prothrombin Time 12.1 Seconds (9.4-12.1)
[2019-03-20 18:22] LABS: Activated Partial Thrombo Time 30.8 Seconds (26.0-36.0)
[2019-03-20 18:23] LABS: Albumin 3.4 g/dL (3.5-5.7); Albumin/Globulin Ratio 1.3 (1.1-2.2); Bilirubin,Total 0.4 mg/dL (0.3-1.0); Calcium 9.8 mg/dL (8.6-10.3); Globulin 2.6 g/dL (2.4-3.5); Magnesium 2.1 mg/dL (1.6-2.6); Phosphorous 3.8 mg/dL (2.7-4.5); Potassium 4.7 mEq/L (3.5-5.1)
[2019-03-20] MEDS: Metoprolol XL (24 HR) Succ 25 MG TAB.ER.24H PO SCH (18:39)
[2019-03-20] MEDS: traZODone 50 MG TABLET PO SCH (21:00)
[2019-03-20] MEDS ORDERED: *HR* Enoxaparin 60 MG/0.6 ML SYRINGE SQ SCH (21:00)
[2019-03-21 00:20] LABS: Basophils # 0.1 K/mcL (0.0-0.2); Basophils % 0.8 %; Eosinophils # 0.4 K/mcL (0.0-0.6); Eosinophils % 4.8 %; Hematocrit 35.9 % (35.3-44.9); Hemoglobin 11.6 g/dL (11.5-15.4); Immature Granulocytes % 0.3 % (0-4); Lymphocytes % 13.9 %; Mean Corpuscular HGB Conc 32.3 g/dL (31.6-35.5); Mean Corpuscular Hemoglobin 30.5 pg (28.0-33.3); Mean Corpuscular Volume 94.5 fL (83.0-100.0); Mean Platelet Volume 10.6 fL (9.4-12.4); Monocytes # 0.6 K/mcL (0.0-1.3); Monocytes % 7.7 %; Neutrophils # 5.4 K/mcL (1.6-8.9); Platelet Count 170 K/mcL (140-400); Red Cell Distribution Width 15.5 % (11.5-14.5); Segmented Neutrophils % 72.5 %; White Blood Count 7.4 K/mcL (4.3-11.1)
[2019-03-21 00:44] LABS: Calcium 9.3 mg/dL (8.6-10.3); Magnesium 2.1 mg/dL (1.6-2.6); Phosphorous 4.5 mg/dL (2.7-4.5); Potassium 4.4 mEq/L (3.5-5.1)
[2019-03-21] MEDS: Amiodarone Premix 360 MG/200 ML BAG IVC SCH (00:57)
[2019-03-21] MEDS: Pyridoxine (B-6) 50 MG TABLET PO SCH (08:53)
[2019-03-21] MEDS: Metoprolol XL (24 HR) Succ 25 MG TAB.ER.24H PO SCH (08:53)
[2019-03-21] MEDS ORDERED: Furosemide 40 MG/4 ML VIAL IVP SCH (09:00)
[2019-03-21] MEDS ORDERED: Furosemide 20 MG/2 ML VIAL IVP SCH (09:00)
[2019-03-21] MEDS: traZODone 50 MG TABLET PO SCH (20:37)
[2019-03-21] MEDS: Apixaban 5 MG TABLET PO SCH (20:37)
[2019-03-22 02:06] LABS: Basophils % 0.7 %; Eosinophils # 0.4 K/mcL (0.0-0.6); Eosinophils % 6.2 %; Hematocrit 35.4 % (35.3-44.9); Hemoglobin 11.3 g/dL (11.5-15.4); Immature Granulocytes % 0.3 % (0-4); Lymphocytes # 0.7 K/mcL (0.6-4.6); Lymphocytes % 11.1 %; Mean Corpuscular HGB Conc 31.9 g/dL (31.6-35.5); Mean Corpuscular Volume 93.9 fL (83.0-100.0); Mean Platelet Volume 11.1 fL (9.4-12.4); Monocytes # 0.6 K/mcL (0.0-1.3); Monocytes % 9.3 %; Neutrophils # 4.3 K/mcL (1.6-8.9); Platelet Count 174 K/mcL (140-400); Red Blood Count 3.77 M/mcL (3.82-4.97); Red Cell Distribution Width 15.2 % (11.5-14.5); Segmented Neutrophils % 72.4 %; White Blood Count 5.9 K/mcL (4.3-11.1)
[2019-03-22 02:25] LABS: Calcium 9.6 mg/dL (8.6-10.3); Magnesium 2.2 mg/dL (1.6-2.6); Phosphorous 5.6 mg/dL (2.7-4.5); Potassium 3.8 mEq/L (3.5-5.1)
[2019-03-22] MEDS: Apixaban 5 MG TABLET PO SCH ×2 (09:22→20:43)
[2019-03-22] MEDS: Metoprolol XL (24 HR) Succ 25 MG TAB.ER.24H PO SCH (09:23)
[2019-03-22] MEDS: Pyridoxine (B-6) 50 MG TABLET PO SCH (09:23)
[2019-03-22] MEDS: Amoxicillin/Clavulanate 500 MG TABLET PO SCH (17:10)
[2019-03-22] MEDS: traZODone 50 MG TABLET PO SCH (20:43)
[2019-03-23 05:55] LABS: Basophils % 0.6 %; Eosinophils # 0.3 K/mcL (0.0-0.6); Eosinophils % 5.9 %; Hematocrit 34.3 % (35.3-44.9); Hemoglobin 10.8 g/dL (11.5-15.4); Immature Granulocytes % 0.2 % (0-4); Lymphocytes # 0.7 K/mcL (0.6-4.6); Lymphocytes % 14.5 %; Mean Corpuscular HGB Conc 31.5 g/dL (31.6-35.5); Mean Corpuscular Hemoglobin 30.2 pg (28.0-33.3); Mean Corpuscular Volume 95.8 fL (83.0-100.0); Mean Platelet Volume 10.7 fL (9.4-12.4); Monocytes # 0.5 K/mcL (0.0-1.3); Monocytes % 10.6 %; Neutrophils # 3.4 K/mcL (1.6-8.9); Platelet Count 153 K/mcL (140-400); Red Blood Count 3.58 M/mcL (3.82-4.97); Red Cell Distribution Width 14.5 % (11.5-14.5); Segmented Neutrophils % 68.2 %; White Blood Count 4.9 K/mcL (4.3-11.1)
[2019-03-23 06:13] LABS: Calcium 9.3 mg/dL (8.6-10.3); Magnesium 2.1 mg/dL (1.6-2.6); Phosphorous 4.6 mg/dL (2.7-4.5); Potassium 3.9 mEq/L (3.5-5.1)
[2019-03-23] MEDS: Pyridoxine (B-6) 50 MG TABLET PO SCH (08:05)
[2019-03-23] MEDS: Metoprolol XL (24 HR) Succ 25 MG TAB.ER.24H PO SCH (08:05)
[2019-03-23] MEDS: Amoxicillin/Clavulanate 500 MG TABLET PO SCH (08:05)
[2019-03-23] MEDS: Apixaban 5 MG TABLET PO SCH (08:06)
[2019-03-23 11:21] VITALS: BP 168/78
== END 2019-03-23 13:00 | disposition home health service (06) | DRG 308 ==
LOC: 2NNU 17:03
PROVIDERS: ADMIT Internal Medicine; ATTEND Internal Medicine

== ENCOUNTER 2020-12-12 22:18 | Inpatient (IN) ==
[2020-12-13] MEDS ORDERED: Naloxone 0.4 MG/ML INJ IVP PRN (01:38)
[2020-12-13] MEDS ORDERED: Ondansetron 4 MG/2 ML VIAL IVP PRN (01:38)
[2020-12-13] MEDS ORDERED: Perflutren Lipid Microsphere 1.3 ML in 0.9 % Sodium Chloride 8.7 ML IVP PRN (02:22)
[2020-12-13] MEDS: Azithromycin 250 MG TABLET PO SCH (02:56)
[2020-12-13 03:49] LABS: Basophils # 0.1 K/mcL (0.0-0.2); Basophils % 0.4 %; Hematocrit 40.4 % (35.3-44.9); Hemoglobin 12.5 g/dL (11.5-15.4); Lymphocytes # 1.1 K/mcL (0.6-4.6); Lymphocytes % 4.7 %; Mean Corpuscular HGB Conc 30.9 g/dL (31.6-35.5); Mean Corpuscular Hemoglobin 27.7 pg (28.0-33.3); Mean Corpuscular Volume 89.6 fL (83.0-100.0); Mean Platelet Volume 10.9 fL (9.4-12.4); Monocytes # 2.1 K/mcL (0.0-1.3); Monocytes % 8.8 %; Neutrophils # 20.4 K/mcL (1.6-8.9); Platelet Count 287 K/mcL (140-400); Red Blood Count 4.51 M/mcL (3.82-4.97); Red Cell Distribution Width 15.8 % (11.5-14.5); Segmented Neutrophils % 85.1 %; White Blood Count 23.9 K/mcL (4.3-11.1)
[2020-12-13 03:50] LABS: Estimated Average Glucose 148 mg/dl; Hemoglobin A1C 6.8 %
[2020-12-13 03:56] LABS: INR 2.2; Prothrombin Time 25.2 Seconds (9.4-12.1)
[2020-12-13 03:59] LABS: Activated Partial Thrombo Time 35.3 Seconds (26.0-36.0)
[2020-12-13 04:00] LABS: Bilirubin,Urine Negative (Negative); Blood,Urine Negative (Negative); Clarity,Urine Clear (Clear); Color,Urine Yellow (Yellow); Glucose,Urine (UA) Normal (Normal); Hyaline Casts,Urine Moderate per lpf (None Seen); Ketones,Urine Negative (Negative); Leukocyte Esterase,Urine Trace (Negative); Mucus,Urine Few per lpf (None-Few); Nitrite,Urine Negative (Negative); Protein,Urine Trace mg/dL (Neg-Trace); RBC,Urine 0-3 per hpf (0-3); Specific Gravity,Urine 1.025 (1.010-1.025); Squamous Epithelial Cell,Urine Few per hpf (None-Few); Urobilinogen,Urine Normal (Normal)
[2020-12-13 04:34] LABS: Thyroid Stimulating Hormone 23.879 mcIU/mL (0.340-5.600); Troponin I < 0.03 ng/mL (< 0.04)
[2020-12-13 04:44] LABS: Alanine Aminotransferase 11 Units/L (7-52); Albumin 3.6 g/dL (3.5-5.7); Albumin/Globulin Ratio 1.2 (1.1-2.2); Alkaline Phosphatase 63 Units/L (34-104); Aspartate Amino Transferase 19 Units/L (13-39); BUN/Creatinine Ratio 12 (6-26); Bilirubin,Total 0.8 mg/dL (0.3-1.0); Blood Urea Nitrogen 15 mg/dL (8-23); Calcium 8.7 mg/dL (8.6-10.3); Carbon Dioxide 20 mEq/L (23-29); Chloride 98 mEq/L (98-107); Globulin 2.9 g/dL (2.4-3.5); Glucose 220 mg/dL (70-105); Magnesium 1.8 mg/dL (1.6-2.6); Osmolality,Calculated 282 (280-300); Phosphorous 2.7 mg/dL (2.7-4.5); Potassium 4.2 mEq/L (3.5-5.1); Sodium 132 mEq/L (136-145); Total Protein 6.5 g/dL (6.4-8.9); eGFR For African Americans 48 (> 60); eGFR For Non-African Americans 39 (> 60)
[2020-12-13] MEDS: Amiodarone Premix 360 MG/200 ML BAG IVC SCH ×2 (05:24→17:04)
[2020-12-13] MEDS ORDERED: D5% in Water 1,000 ML IVC PRN (06:36)
[2020-12-13] MEDS ORDERED: Dextrose Gel 15 GM/37.5 ML TUBE PO PRN ×2 (06:36)
[2020-12-13] MEDS ORDERED: *HR* Dextrose 50 % in Water (Vial) 50 ML VIAL IVP PRN (06:36)
[2020-12-13] MEDS ORDERED: Amiodarone Premix 360 MG/200 ML BAG IVC SCH (08:22)
[2020-12-13] MEDS: cefTRIAXone 1,000 MG in Water for inj. (sterile) 10 ML IVP SCH (08:43)
[2020-12-13] MEDS ORDERED: Apixaban 5 MG TABLET PO SCH (09:00)
[2020-12-13] MEDS ORDERED: Insulin LISPRO 300 UNITS/3 ML VIAL SUBQ SCH ×2 (12:00→21:00)
[2020-12-13] MEDS: Insulin LISPRO 300 UNITS/3 ML VIAL SUBQ SCH (16:12)
[2020-12-13] MEDS ORDERED: Furosemide 40 MG/4 ML VIAL IVP SCH (18:13)
[2020-12-13] MEDS ORDERED: *HR* Metoprolol 5 MG/5 ML VIAL IVP PRN (18:18)
[2020-12-14 05:50] LABS: Basophils % 0.2 %; Hemoglobin 12.3 g/dL (11.5-15.4); Immature Granulocytes % 0.9 % (0-4); Lymphocytes % 4.1 %; Mean Corpuscular HGB Conc 31.5 g/dL (31.6-35.5); Mean Corpuscular Hemoglobin 27.8 pg (28.0-33.3); Mean Platelet Volume 10.4 fL (9.4-12.4); Monocytes # 1.7 K/mcL (0.0-1.3); Monocytes % 7.2 %; Neutrophils # 20.7 K/mcL (1.6-8.9); Platelet Count 322 K/mcL (140-400); Red Blood Count 4.43 M/mcL (3.82-4.97); Red Cell Distribution Width 15.8 % (11.5-14.5); Segmented Neutrophils % 87.6 %; White Blood Count 23.6 K/mcL (4.3-11.1)
[2020-12-14 07:37] LABS: Calcium 9.8 mg/dL (8.6-10.3); Potassium 4.5 mEq/L (3.5-5.1)
[2020-12-14] MEDS: Insulin LISPRO 300 UNITS/3 ML VIAL SUBQ SCH ×4 (08:12→19:36)
[2020-12-14] MEDS: cefTRIAXone 1,000 MG in Water for inj. (sterile) 10 ML IVP SCH (08:15)
[2020-12-14] MEDS ORDERED: *HR* OxyCODONE Immed Rel 5 MG TABLET PO PRN (09:05)
[2020-12-14] MEDS ORDERED: *HR* FentaNYL (PF) 100 MCG/2 ML VIAL IVP PRN (09:05)
[2020-12-14] MEDS ORDERED: Ondansetron 4 MG/2 ML VIAL IVP PRN ×2 (09:05→10:27)
[2020-12-14] MEDS ORDERED: Albuterol 2.5 MG/3 ML NEBULIZER IH PRN (09:05)
[2020-12-14] MEDS ORDERED: *HR* FentaNYL (PF) 250 MCG/5 ML VIAL ONE (09:08)
[2020-12-14] MEDS ORDERED: *HR* Midazolam HCl 5 MG/5 ML VIAL IVP ONE (09:08)
[2020-12-14] MEDS ORDERED: *HR* Rocuronium Bromide 50 MG/5 ML VIAL ONE (09:08)
[2020-12-14] MEDS ORDERED: *HR* Propofol 200 MG/20 ML VIAL IVP ONE (09:08)
[2020-12-14] MEDS ORDERED: Ondansetron 4 MG/2 ML VIAL ONE (09:10)
[2020-12-14] MEDS ORDERED: Lidocaine 1% 20 ML MDV ONE (09:13)
[2020-12-14] MEDS ORDERED: Naloxone 0.4 MG/ML INJ ONE ×2 (10:11→10:14)
[2020-12-14] MEDS ORDERED: Dextrose Gel 15 GM/37.5 ML TUBE PO PRN ×2 (10:27)
[2020-12-14] MEDS ORDERED: Naloxone 0.4 MG/ML INJ IVP PRN (10:27)
[2020-12-14] MEDS ORDERED: D5% in Water 1,000 ML IVC PRN (10:27)
[2020-12-14] MEDS ORDERED: *HR* Dextrose 50 % in Water (Vial) 50 ML VIAL IVP PRN (10:27)
[2020-12-14] MEDS: Azithromycin 250 MG TABLET PO SCH (10:58)
[2020-12-14] MEDS ORDERED: Benzonatate 100 MG CAPSULE PO PRN (14:54)
[2020-12-14] MEDS: *HR* HYDROcodone/Acet 5/325 mg TABLET PO PRN (17:15)
[2020-12-15] MEDS: *HR* HYDROcodone/Acet 5/325 mg TABLET PO PRN ×2 (07:26→18:29)
[2020-12-15] MEDS: Azithromycin 250 MG TABLET PO SCH (07:26)
[2020-12-15] MEDS: Insulin LISPRO 300 UNITS/3 ML VIAL SUBQ SCH ×4 (07:27→21:32)
[2020-12-15] MEDS: cefTRIAXone 1,000 MG in Water for inj. (sterile) 10 ML IVP SCH (07:27)
[2020-12-15 08:42] LABS: Basophils % 0.1 %; Hematocrit 36.4 % (35.3-44.9); Hemoglobin 11.3 g/dL (11.5-15.4); Immature Granulocytes % 0.7 % (0-4); Lymphocytes # 0.6 K/mcL (0.6-4.6); Lymphocytes % 3.2 %; Mean Corpuscular Hemoglobin 27.3 pg (28.0-33.3); Mean Corpuscular Volume 87.9 fL (83.0-100.0); Mean Platelet Volume 10.9 fL (9.4-12.4); Monocytes # 1.2 K/mcL (0.0-1.3); Monocytes % 6.4 %; Neutrophils # 16.8 K/mcL (1.6-8.9); Platelet Count 343 K/mcL (140-400); Red Blood Count 4.14 M/mcL (3.82-4.97); Red Cell Distribution Width 15.5 % (11.5-14.5); Segmented Neutrophils % 89.6 %; White Blood Count 18.7 K/mcL (4.3-11.1)
[2020-12-15 09:07] LABS: Potassium 4.7 mEq/L (3.5-5.1)
[2020-12-15] MEDS: Furosemide 40 MG/4 ML VIAL IVP SCH (15:20)
[2020-12-16 03:07] LABS: Basophils % 0.2 %; Eosinophils % 0.2 %; Hematocrit 36.9 % (35.3-44.9); Hemoglobin 11.1 g/dL (11.5-15.4); Immature Granulocytes % 0.8 % (0-4); Lymphocytes # 0.8 K/mcL (0.6-4.6); Lymphocytes % 6.4 %; Mean Corpuscular HGB Conc 30.1 g/dL (31.6-35.5); Mean Corpuscular Hemoglobin 26.7 pg (28.0-33.3); Mean Corpuscular Volume 88.9 fL (83.0-100.0); Mean Platelet Volume 10.4 fL (9.4-12.4); Monocytes # 1.1 K/mcL (0.0-1.3); Monocytes % 8.4 %; Nucleated Red Blood Cells 0.2 /100 WBC (0); Platelet Count 378 K/mcL (140-400); Red Blood Count 4.15 M/mcL (3.82-4.97); Red Cell Distribution Width 15.9 % (11.5-14.5); White Blood Count 13.1 K/mcL (4.3-11.1)
[2020-12-16 03:25] LABS: Calcium 9.2 mg/dL (8.6-10.3); Potassium 4.4 mEq/L (3.5-5.1)
[2020-12-16] MEDS: Azithromycin 250 MG TABLET PO SCH (07:15)
[2020-12-16] MEDS: *HR* HYDROcodone/Acet 5/325 mg TABLET PO PRN ×3 (07:16→19:45)
[2020-12-16] MEDS: cefTRIAXone 1,000 MG in Water for inj. (sterile) 10 ML IVP SCH (07:16)
[2020-12-16] MEDS: Furosemide 40 MG/4 ML VIAL IVP SCH (07:17)
[2020-12-16] MEDS: Insulin LISPRO 300 UNITS/3 ML VIAL SUBQ SCH ×4 (07:27→21:53)
[2020-12-17 03:13] LABS: Basophils # 0.1 K/mcL (0.0-0.2); Basophils % 0.6 %; Eosinophils # 0.1 K/mcL (0.0-0.6); Eosinophils % 1.1 %; Hematocrit 39.2 % (35.3-44.9); Hemoglobin 12.1 g/dL (11.5-15.4); Immature Granulocytes % 0.4 % (0-4); Lymphocytes # 0.9 K/mcL (0.6-4.6); Lymphocytes % 9.5 %; Mean Corpuscular HGB Conc 30.9 g/dL (31.6-35.5); Mean Corpuscular Hemoglobin 27.2 pg (28.0-33.3); Mean Corpuscular Volume 88.1 fL (83.0-100.0); Mean Platelet Volume 10.2 fL (9.4-12.4); Monocytes # 0.9 K/mcL (0.0-1.3); Monocytes % 9.4 %; Neutrophils # 7.7 K/mcL (1.6-8.9); Platelet Count 363 K/mcL (140-400); Red Blood Count 4.45 M/mcL (3.82-4.97); Red Cell Distribution Width 15.5 % (11.5-14.5); White Blood Count 9.8 K/mcL (4.3-11.1)
[2020-12-17 03:23] LABS: Potassium 4.1 mEq/L (3.5-5.1)
[2020-12-17] MEDS: *HR* HYDROcodone/Acet 5/325 mg TABLET PO PRN (08:09)
[2020-12-17] MEDS: Azithromycin 250 MG TABLET PO SCH (08:09)
[2020-12-17] MEDS: Furosemide 40 MG/4 ML VIAL IVP SCH (08:09)
[2020-12-17] MEDS: cefTRIAXone 1,000 MG in Water for inj. (sterile) 10 ML IVP SCH (08:10)
[2020-12-17] MEDS: Insulin LISPRO 300 UNITS/3 ML VIAL SUBQ SCH ×4 (08:10→23:52)
[2020-12-17] MEDS: Furosemide 20 MG TABLET PO SCH (16:11)
[2020-12-17] MEDS: Gabapentin 300 MG CAPSULE PO SCH ×2 (16:11→19:27)
[2020-12-18 01:29] LABS: Calcium 8.8 mg/dL (8.6-10.3); Potassium 4.6 mEq/L (3.5-5.1)
[2020-12-18 03:46] VITALS: O2SAT 99
[2020-12-18 07:07] VITALS: TEMP 97.5
[2020-12-18] MEDS: Insulin LISPRO 300 UNITS/3 ML VIAL SUBQ SCH (08:16)
[2020-12-18] MEDS: Gabapentin 300 MG CAPSULE PO SCH (08:17)
[2020-12-18] MEDS: Furosemide 20 MG TABLET PO SCH (08:18)
[2020-12-18] MEDS: cefTRIAXone 1,000 MG in Water for inj. (sterile) 10 ML IVP SCH (08:18)
[2020-12-18] MEDS: Azithromycin 250 MG TABLET PO SCH (08:19)
[2020-12-18] MEDS ORDERED: Spironolactone 25 MG TABLET PO SCH (09:00)
[2020-12-18] MEDS ORDERED: Folic Acid 1 MG TABLET PO SCH (09:00)
[2020-12-18] MEDS ORDERED: Apixaban 5 MG TABLET PO SCH (09:45)
[2020-12-18 10:57] VITALS: BP 116/65; PULSE 105
== END 2020-12-18 13:42 | disposition home health service (06) | DRG 853 ==
LOC: ICNU → SUATTDRO 12-13 02:15 → 2NNU 12-15 02:00
PROVIDERS: ADMIT Internal Medicine; ATTEND Student in an Organized Health Care Education/Training Program